=== PATIENT | female | born 1960 | race Caucasian/White ===

== ENCOUNTER 2021-01-14 14:48 | Emergency (ER) | payer OTHER, SELFPAY ==
--- NOTE | ~2021-01-14 | CT_ITS ---
EXAMINATION: CT HEAD WITHOUT CONTRAST CT CERVICAL SPINE WITHOUT CONTRAST CLINICAL INFORMATION: Weakness COMPARISON: None. TECHNIQUE: Imaging was performed from the skull base to vertex without intravenous administration of contrast. In addition, helical noncontrast CT imaging was acquired through the cervical spine and source images were reviewed along with axial reconstructions and sagittal and coronal MPRs. [This CT examination was performed using dose optimization techniques as appropriate, variously including the following: *Automated exposure control *Adjustment of mA and/or kV according to patient size (this includes techniques or standardized protocols for targeted exams where dose is matched to indication/reason for exam; i.e. extremities or head) *Use of iterative reconstruction technique] DLP: 824 mGy-cm FINDINGS: HEAD: No intracranial mass, hemorrhage, or midline shift is visualized. The ventricles and sulci are age-appropriate. No extra-axial collections are identified. Fluid opacifies the inferior right mastoid air cells. There is normal aeration of the middle ear cavities. CERVICAL SPINE: There is no evidence of acute cervical spine fracture. Vertebral bodies remain normal in height. Cervical vertebrae have normal alignment. There is multilevel degenerative spondylosis of the cervical spine with disc height narrowing and endplate spurs and facet joint arthrosis No pre- or paravertebral soft tissue abnormality is identified. Limited assessment of the lung apices is unremarkable. CT/CT head/brain wo con IMPRESSION: 1. No acute intracranial pathology. 2. No CT evidence of acute cervical spine fracture or traumatic subluxation
--- NOTE | ~2021-01-14 | CT_ITS ---
EXAMINATION: CT HEAD WITHOUT CONTRAST CT CERVICAL SPINE WITHOUT CONTRAST CLINICAL INFORMATION: Weakness COMPARISON: None. TECHNIQUE: Imaging was performed from the skull base to vertex without intravenous administration of contrast. In addition, helical noncontrast CT imaging was acquired through the cervical spine and source images were reviewed along with axial reconstructions and sagittal and coronal MPRs. [This CT examination was performed using dose optimization techniques as appropriate, variously including the following: *Automated exposure control *Adjustment of mA and/or kV according to patient size (this includes techniques or standardized protocols for targeted exams where dose is matched to indication/reason for exam; i.e. extremities or head) *Use of iterative reconstruction technique] DLP: 824 mGy-cm FINDINGS: HEAD: No intracranial mass, hemorrhage, or midline shift is visualized. The ventricles and sulci are age-appropriate. No extra-axial collections are identified. Fluid opacifies the inferior right mastoid air cells. There is normal aeration of the middle ear cavities. CERVICAL SPINE: There is no evidence of acute cervical spine fracture. Vertebral bodies remain normal in height. Cervical vertebrae have normal alignment. There is multilevel degenerative spondylosis of the cervical spine with disc height narrowing and endplate spurs and facet joint arthrosis No pre- or paravertebral soft tissue abnormality is identified. Limited assessment of the lung apices is unremarkable. CT/CT cervical spine wo con IMPRESSION: 1. No acute intracranial pathology. 2. No CT evidence of acute cervical spine fracture or traumatic subluxation
--- NOTE | ~2021-01-14 | CT_ITS ---
EXAMINATION: CT CHEST WITHOUT CONTRAST CLINICAL INFORMATION: cough, upper respiratory symptoms . COMPARISON: 02/02/2020 CT scan. TECHNIQUE: Multidetector volumetric imaging was performed from the thoracic inlet through the lung bases without contrast. Sagittal and coronal reformatted images were obtained on the technologist workstation. Soft tissue and lung algorithms evaluated. Thick slab MIP images were performed to increase nodule conspicuity. This CT examination was performed using dose optimization techniques as appropriate, variously including the following: *Automated exposure control *Adjustment of mA and/or kV according to patient size (this includes techniques or standardized protocols for targeted exams where dose is matched to indication/reason for exam; i.e. extremities or head) *Use of iterative reconstruction technique DLP: 276 mGy-cm. FINDINGS: LUNG: Minimal dependent atelectasis. I do not appreciate any focal consolidation or infiltrate. Central airways unremarkable. No suspicious pulmonary nodules or pulmonary mass lesions. MEDIASTINUM: The mediastinum is normal. The central vascular structures are unremarkable. No hilar or mediastinal lymphadenopathy. PERICARDIUM/PLEURA: No significant effusion. No pleural mass or thickening. THYROID/VISUALIZED LOWER NECK: Unremarkable. CHEST WALL/AXILLA: Unremarkable. VISUALIZED UPPER ABDOMEN: Surgical clips metallic artifact seen in the left upper quadrant. CT/CT chest wo con IMPRESSION: No focal airspace disease seen. Minimal dependent basilar atelectasis.
[2021-01-14 14:53] VITALS: BP 152/87; PULSE 105; RESP 18; TEMP 36.7; O2SAT 97; BMI 28.3
[2021-01-14 16:36] VITALS: BP 163/91; PULSE 79; RESP 22; TEMP 36.9; O2SAT 98
--- NOTE | 2021-01-14 17:49 | ECG_ITS ---
Test Reason : NUMBNESS Blood Pressure : / mmHG Vent. Rate : 085 BPM Atrial Rate : 085 BPM P-R Int : 154 ms QRS Dur : 120 ms QT Int : 402 ms P-R-T Axes : 049 -38 097 degrees QTc Int : 478 ms Normal sinus rhythm Left axis deviation Left bundle branch block Abnormal ECG When compared with ECG of 02-FEB-2020 23:18, No significant changes seen Referred By: Rachael Martínez Electronically Signed By:Lei Borden
--- NOTE | 2021-01-14 17:49 | ED_ITS ---
HPI - Weakness General Chief complaint: Weakness Stated complaint: SHOULDER AND BACK PAIN Time Seen by Provider: 01/14/21 21:00 Source: patient Mode of arrival: ambulatory Limitations: no limitations History of Present Illness HPI Narrative: 60-year-old female past medical history of arthritis, hypertension, fibromyalgia, prior history of [facility] presents with headache, back pain, shoulder pain, and anxiety. Patient is crying and sobbing, not answering questions that are asked, tangential and redirectable. She keeps repeating, I do not know what is wrong with myself, woke up with pain that has not been relieved with any [id number] medications. Related Data Previous Rx's Medication Instructions Recorded albuterol sulfate 90 mcg/actuation 2 puff INHALATION Q6H PRN 30 Days 07/24/20 aerosol inhaler #18 g cefuroxime axetil 500 mg PO Q12H 7 Days #14 tab 01/14/21 phenazopyridine [Pyridium] 200 mg PO TID PRN #6 tab 01/14/21 methocarbamol [Robaxin-750] 750 mg PO BEDTIME #7 tab 01/15/21 Allergies Allergy/AdvReac Type Severity Reaction Status Date / Time erythromycin base Allergy Severe ANAPHYLAXIS Verified 07/31/20 12:04 [ERYTHROMYCIN BASE] insulation Allergy Unknown unknown Uncoded 07/31/20 12:04 Review of Systems Review of Systems: Constitutional: No Weight loss, No Fever, No Chills, positive anxiety ENT/Mouth: No Hearing loss, No Ear Pain, No Nasal Congestion, No Sinus Pain, No Hoarseness, No sore throat, No Rhinorrhea, No Swallowing Difficulty Cardiovascular: No Chest Pain, No SOB Respiratory: No Cough, No Dyspnea Gastrointestinal: No Nausea, No Vomiting, No Diarrhea, No abdominal Pain, No Hematochezia, No Melena Genitourinary: No Dysuria, No Urinary Frequency, No Hematuria, No Urinary Incontinence, Musculoskeletal: positive back pain, positive shoulder pain Skin: No Skin Lesions, No rash Neuro: No Weakness, No Numbness, No Paresthesias, no loss of bowel or bladder incontinence, no saddle anesthesia Yes all other systems are reviewed and are negative PMFSH Past Medical History Attestation statement: The following information was validated with the patient. Source: old records reviewed Medical History (Updated 01/14/21 @ 22:12 by Rachael Martínez NP) Arthritis Chest pain Fibromyalgia Heart attack High blood pressure Family History Family History Father Myocardial infarction Mother No problems noted. Sister Diabetes Social History Social History Smoked in Last 30 Days: No Use of substances other than those prescribed or required for medical reasons: No Advance Directives: No Advance Directives Information Provided: Yes Physical Exam Vital Signs: Vital Signs: Last Vital Signs Temp 98.4 F 01/14/21 16:36 Pulse 95 01/14/21 21:53 Resp 16 01/14/21 21:53 BP 121/88 01/14/21 21:53 Pulse Ox 96 01/14/21 21:53 Body Mass Index 28.3 Appearance: Alert. Oriented X3. Moderate emotional distress. Eyes: Pupils equal, round and reactive to light. EOMI, sclera nonicteric ENT: Pharynx normal. Moist mucous membranes Neck: Normal inspection. Neck supple. CVS: Normal heart rate and rhythm. Pulses equal to all extremities. Respiratory: No respiratory distress. Lung sounds clear to auscultation all lobes Abdomen: Soft and nontender. Skin: Skin warm and dry. Normal skin color. Normal skin turgor. Extremities: No lower extremity edema. Moves all extremities against resistance. Neuro: No motor deficit. No sensory deficit. Cranial nerves 2-12 intact, no focal neural deficits Course Course Course Narrative: 6-year-old female with past medical history of arthritis, hypertension, fibromyalgia, history of [facility] presents with back pain, shoulder pain, is in significant emotional distress secondary to anxiety. 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 She states that this is the worst headache of her life, neck pain is so bad that she does not want to move, that her shoulder hurts and she does not recall any trauma or falls. Plan of care is for CBC, Chem 7, will order CT scan of head, chest, and cervical spine. 7:30 p.m. urinalysis positive for UTI. Will treat with ceftriaxone IV, and order lactic and cultures at this time. Patient is continuing to claim 10/10 pain, order for morphine, Toradol and L of fluid. Diagnostics are negative for acute findings, patient is asking for pain medications. Patient was advised that we are not going to prescribe her narcotics. Patient does not want to leave this facility without pain management. Multiple discussions with RN and this FOOD SAFETY COORDINATOR, states that she used to take Robaxin, I did order 7 tablets of Robaxin and let her know that we would not be able to give her any further medications. MDM - Weakness Differential Diagnosis Differential diagnosis: Likely UTI, anemia, hypoglycemia, hypothyroidism, sepsis and dehydration Medical Records Attestation: I reviewed the patient's medical records. Lab Data Attestation: I reviewed the patient's lab results. Result diagrams: 01/14/21 21:21 01/14/21 18:28 Labs: Lab Results 01/14/21 01/14/21 01/14/21 Range/Units 18:27 18:28 18:28 WBC (4.8-10.8) X10*3/uL RBC (4.20-5.50) X10*6/uL Hgb (12.0-16.0) g/dl Hct (37-47) % MCV (80-98) fL MCH (27.0-33.0) pg MCHC (31.0-35.0) g/dl RDW (11.0-16.0) % Plt Count (160-400) X10*3/uL MPV (9.4-12.3) fL Immature Gran % (Auto) (0.0-0.4) % Neut % (Auto) (45-73) % Lymph % (Auto) (20-40) % [place] % (Auto) (2-11) % Eos % (Auto) (0-4) % Baso % (Auto) (0-2) % Lymph # (Auto) (1.2-4.9) X10*3/uL [place] # (Auto) (0.1-1.2) X10*3/uL Eos # (Auto) (0.0-0.4) X10*3/uL Baso # (Auto) (0.0-0.2) X10*3/uL Abs Immat Gran (auto) (0.00-0.03) X10*3/uL Absolute Neuts (auto) (2.0-8.3) X10*3/uL Absolute Nucleated RBC (0.0-0.012) X10*3/uL Nucleated RBC % (auto) (0.0-0.2) /100WBC PT 12.6 (10.8-13.0) SEC INR 1.1 (0.9-1.1) APTT 35.9 (24.1-38.0) SEC Sodium 138 (135-145) mmol/L Potassium 3.8 (3.3-5.1) mmol/L Chloride 104 (96-108) mmol/L Carbon Dioxide 22 (22-29) mmol/L Anion Gap 16 (12-20) BUN 10 (9-16) mg/dL Creatinine 0.61 (0.5-1.4) mg/dL Estim Creat Clear Calc 86.5 Estimated GFR > 60 Random Glucose 91 (60-115) mg/dL Lactic Acid (0.5-2.0) mmol/L Calcium 10.1 (8.4-10.2) mg/dL Magnesium 2.0 (1.6-2.6) mg/dL Ferritin 174 (10-250) ng/mL Total Bilirubin 0.9 (0.0-1.0) mg/dL Direct Bilirubin 0.4 (0.0-0.5) mg/dL AST 16 (5-31) U/L ALT 18 (0-31) U/L Alkaline Phosphatase 97 (39-117) U/L Ammonia (13-55) umol/L Lactate Dehydrogenase 142 (122-220) U/L Troponin I High Sens (<3.5-17.0) ng/L B-Natriuretic Peptide (<100) pg/mL Total Protein 7.5 (6.5-8.0) g/dL Albumin 4.1 (3.5-5.0) g/dL Lipase 34 (8-78) U/L Urine Color Urine Appearance Urine pH (5.0-8.0) Ur Specific [place] (1.005-1.025) Urine Protein (NEG-TRACE) MG/DL Urine Glucose (UA) (NEG) MG/DL Urine Ketones (NEG) MG/DL Urine Blood (NEG) Urine Nitrite (NEG) Ur Leukocyte Esterase (NEG) Urine RBC (0) /HPF Urine WBC (0-4) /HPF Ur Squamous Epith Cells /LPF Urine Bacteria /LPF Urine Opiates Screen (Not Detect) Ur Barbiturates Screen (Not Detect) Ur Phencyclidine Scrn (Not Detect) Ur Amphetamines Screen (Not Detect) U Benzodiazepines Scrn (Not Detect) Urine Cocaine Screen (Not Detect) U Marijuana (THC) Screen (Not Detect) Ethyl Alcohol mg/dL Coronavirus (PCR) (Negative) Influenza Type A (PCR) (Negative) Influenza Type B (PCR) (Negative) RSV RNA Qual (PCR) (Negative) 01/14/21 01/14/21 01/14/21 Range/Units 18:28 18:28 18:28 WBC (4.8-10.8) X10*3/uL RBC (4.20-5.50) X10*6/uL Hgb (12.0-16.0) g/dl Hct (37-47) % MCV (80-98) fL MCH (27.0-33.0) pg MCHC (31.0-35.0) g/dl RDW (11.0-16.0) % Plt Count (160-400) X10*3/uL MPV (9.4-12.3) fL Immature Gran % (Auto) (0.0-0.4) % Neut % (Auto) (45-73) % Lymph % (Auto) (20-40) % [place] % (Auto) (2-11) % Eos % (Auto) (0-4) % Baso % (Auto) (0-2) % Lymph # (Auto) (1.2-4.9) X10*3/uL [place] # (Auto) (0.1-1.2) X10*3/uL Eos # (Auto) (0.0-0.4) X10*3/uL Baso # (Auto) (0.0-0.2) X10*3/uL Abs Immat Gran (auto) (0.00-0.03) X10*3/uL Absolute Neuts (auto) (2.0-8.3) X10*3/uL Absolute Nucleated RBC (0.0-0.012) X10*3/uL Nucleated RBC % (auto) (0.0-0.2) /100WBC PT (10.8-13.0) SEC INR (0.9-1.1) APTT (24.1-38.0) SEC Sodium (135-145) mmol/L Potassium (3.3-5.1) mmol/L Chloride (96-108) mmol/L Carbon Dioxide (22-29) mmol/L Anion Gap (12-20) BUN (9-16) mg/dL Creatinine (0.5-1.4) mg/dL Estim Creat Clear Calc Estimated GFR Random Glucose (60-115) mg/dL Lactic Acid (0.5-2.0) mmol/L Calcium (8.4-10.2) mg/dL Magnesium (1.6-2.6) mg/dL Ferritin (10-250) ng/mL Total Bilirubin (0.0-1.0) mg/dL Direct Bilirubin (0.0-0.5) mg/dL AST (5-31) U/L ALT (0-31) U/L Alkaline Phosphatase (39-117) U/L Ammonia (13-55) umol/L Lactate Dehydrogenase (122-220) U/L Troponin I High Sens 4.6 (<3.5-17.0) ng/L B-Natriuretic Peptide 27 (<100) pg/mL Total Protein (6.5-8.0) g/dL Albumin (3.5-5.0) g/dL Lipase (8-78) U/L Urine Color Urine Appearance Urine pH (5.0-8.0) Ur Specific [place] (1.005-1.025) Urine Protein (NEG-TRACE) MG/DL Urine Glucose (UA) (NEG) MG/DL Urine Ketones (NEG) MG/DL Urine Blood (NEG) Urine Nitrite (NEG) Ur Leukocyte Esterase (NEG) Urine RBC (0) /HPF Urine WBC (0-4) /HPF Ur Squamous Epith Cells /LPF Urine Bacteria /LPF Urine Opiates Screen (Not Detect) Ur Barbiturates Screen (Not Detect) Ur Phencyclidine Scrn (Not Detect) Ur Amphetamines Screen (Not Detect) U Benzodiazepines Scrn (Not Detect) Urine Cocaine Screen (Not Detect) U Marijuana (THC) Screen (Not Detect) Ethyl Alcohol < 10 mg/dL Coronavirus (PCR) (Negative) Influenza Type A (PCR) (Negative) Influenza Type B (PCR) (Negative) RSV RNA Qual (PCR) (Negative) 01/14/21 01/14/21 01/14/21 Range/Units 18:28 18:28 18:29 WBC (4.8-10.8) X10*3/uL RBC (4.20-5.50) X10*6/uL Hgb (12.0-16.0) g/dl Hct (37-47) % MCV (80-98) fL MCH (27.0-33.0) pg MCHC (31.0-35.0) g/dl RDW (11.0-16.0) % Plt Count (160-400) X10*3/uL MPV (9.4-12.3) fL Immature Gran % (Auto) (0.0-0.4) % Neut % (Auto) (45-73) % Lymph % (Auto) (20-40) % [place] % (Auto) (2-11) % Eos % (Auto) (0-4) % Baso % (Auto) (0-2) % Lymph # (Auto) (1.2-4.9) X10*3/uL [place] # (Auto) (0.1-1.2) X10*3/uL Eos # (Auto) (0.0-0.4) X10*3/uL Baso # (Auto) (0.0-0.2) X10*3/uL Abs Immat Gran (auto) (0.00-0.03) X10*3/uL Absolute Neuts (auto) (2.0-8.3) X10*3/uL Absolute Nucleated RBC (0.0-0.012) X10*3/uL Nucleated RBC % (auto) (0.0-0.2) /100WBC PT (10.8-13.0) SEC INR (0.9-1.1) APTT (24.1-38.0) SEC Sodium (135-145) mmol/L Potassium (3.3-5.1) mmol/L Chloride (96-108) mmol/L Carbon Dioxide (22-29) mmol/L Anion Gap (12-20) BUN (9-16) mg/dL Creatinine (0.5-1.4) mg/dL Estim Creat Clear Calc Estimated GFR Random Glucose (60-115) mg/dL Lactic Acid (0.5-2.0) mmol/L Calcium (8.4-10.2) mg/dL Magnesium (1.6-2.6) mg/dL Ferritin (10-250) ng/mL Total Bilirubin (0.0-1.0) mg/dL Direct Bilirubin (0.0-0.5) mg/dL AST (5-31) U/L ALT (0-31) U/L Alkaline Phosphatase (39-117) U/L Ammonia (13-55) umol/L Lactate Dehydrogenase (122-220) U/L Troponin I High Sens (<3.5-17.0) ng/L B-Natriuretic Peptide (<100) pg/mL Total Protein (6.5-8.0) g/dL Albumin (3.5-5.0) g/dL Lipase (8-78) U/L Urine Color YELLOW Urine Appearance HAZY Urine pH 6.0 (5.0-8.0) Ur Specific [place] 1.025 (1.005-1.025) Urine Protein NEG (NEG-TRACE) MG/DL Urine Glucose (UA) NEG (NEG) MG/DL Urine Ketones 5 (NEG) MG/DL Urine Blood TRACE (NEG) Urine Nitrite POS H (NEG) Ur Leukocyte Esterase 3+ H (NEG) Urine RBC 0-2 (0) /HPF Urine WBC 30-49 H (0-4) /HPF Ur Squamous Epith Cells 2+ /LPF Urine Bacteria 4+ /LPF Urine Opiates Screen Not Detected (Not Detect) Ur Barbiturates Screen Not Detected (Not Detect) Ur Phencyclidine Scrn Not Detected (Not Detect) Ur Amphetamines Screen Not Detected (Not Detect) U Benzodiazepines Scrn Not Detected (Not Detect) Urine Cocaine Screen Not Detected (Not Detect) U Marijuana (THC) Screen POSITIVE H (Not Detect) Ethyl Alcohol mg/dL Coronavirus (PCR) NEGATIVE (Negative) Influenza Type A (PCR) NEGATIVE (Negative) Influenza Type B (PCR) NEGATIVE (Negative) RSV RNA Qual (PCR) NEGATIVE (Negative) 01/14/21 01/14/21 01/14/21 Range/Units 18:36 21:21 21:21 WBC 10.5 (4.8-10.8) X10*3/uL RBC 4.21 (4.20-5.50) X10*6/uL Hgb 13.5 (12.0-16.0) g/dl Hct 39.4 (37-47) % MCV 93.6 (80-98) fL MCH 32.1 (27.0-33.0) pg MCHC 34.3 (31.0-35.0) g/dl RDW 13.9 (11.0-16.0) % Plt Count 274 (160-400) X10*3/uL MPV 9.0 L (9.4-12.3) fL Immature Gran % (Auto) 0.3 (0.0-0.4) % Neut % (Auto) 57.2 (45-73) % Lymph % (Auto) 27.4 (20-40) % [place] % (Auto) 13.9 H (2-11) % Eos % (Auto) 0.7 (0-4) % Baso % (Auto) 0.5 (0-2) % Lymph # (Auto) 2.9 (1.2-4.9) X10*3/uL [place] # (Auto) 1.5 H (0.1-1.2) X10*3/uL Eos # (Auto) 0.1 (0.0-0.4) X10*3/uL Baso # (Auto) 0.1 (0.0-0.2) X10*3/uL Abs Immat Gran (auto) 0.03 (0.00-0.03) X10*3/uL Absolute Neuts (auto) 6.0 (2.0-8.3) X10*3/uL Absolute Nucleated RBC 0.000 (0.0-0.012) X10*3/uL Nucleated RBC % (auto) 0.0 (0.0-0.2) /100WBC PT (10.8-13.0) SEC INR (0.9-1.1) APTT (24.1-38.0) SEC Sodium (135-145) mmol/L Potassium (3.3-5.1) mmol/L Chloride (96-108) mmol/L Carbon Dioxide (22-29) mmol/L Anion Gap (12-20) BUN (9-16) mg/dL Creatinine (0.5-1.4) mg/dL Estim Creat Clear Calc Estimated GFR Random Glucose (60-115) mg/dL Lactic Acid 0.6 (0.5-2.0) mmol/L Calcium (8.4-10.2) mg/dL Magnesium (1.6-2.6) mg/dL Ferritin (10-250) ng/mL Total Bilirubin (0.0-1.0) mg/dL Direct Bilirubin (0.0-0.5) mg/dL AST (5-31) U/L ALT (0-31) U/L Alkaline Phosphatase (39-117) U/L Ammonia 42 (13-55) umol/L Lactate Dehydrogenase (122-220) U/L Troponin I High Sens (<3.5-17.0) ng/L B-Natriuretic Peptide (<100) pg/mL Total Protein (6.5-8.0) g/dL Albumin (3.5-5.0) g/dL Lipase (8-78) U/L Urine Color Urine Appearance Urine pH (5.0-8.0) Ur Specific [place] (1.005-1.025) Urine Protein (NEG-TRACE) MG/DL Urine Glucose (UA) (NEG) MG/DL Urine Ketones (NEG) MG/DL Urine Blood (NEG) Urine Nitrite (NEG) Ur Leukocyte Esterase (NEG) Urine RBC (0) /HPF Urine WBC (0-4) /HPF Ur Squamous Epith Cells /LPF Urine Bacteria /LPF Urine Opiates Screen (Not Detect) Ur Barbiturates Screen (Not Detect) Ur Phencyclidine Scrn (Not Detect) Ur Amphetamines Screen (Not Detect) U Benzodiazepines Scrn (Not Detect) Urine Cocaine Screen (Not Detect) U Marijuana (THC) Screen (Not Detect) Ethyl Alcohol mg/dL Coronavirus (PCR) (Negative) Influenza Type A (PCR) (Negative) Influenza Type B (PCR) (Negative) RSV RNA Qual (PCR) (Negative) 01/14/21 Range/Units 21:21 WBC (4.8-10.8) X10*3/uL RBC (4.20-5.50) X10*6/uL Hgb (12.0-16.0) g/dl Hct (37-47) % MCV (80-98) fL MCH (27.0-33.0) pg MCHC (31.0-35.0) g/dl RDW (11.0-16.0) % Plt Count (160-400) X10*3/uL MPV (9.4-12.3) fL Immature Gran % (Auto) (0.0-0.4) % Neut % (Auto) (45-73) % Lymph % (Auto) (20-40) % [place] % (Auto) (2-11) % Eos % (Auto) (0-4) % Baso % (Auto) (0-2) % Lymph # (Auto) (1.2-4.9) X10*3/uL [place] # (Auto) (0.1-1.2) X10*3/uL Eos # (Auto) (0.0-0.4) X10*3/uL Baso # (Auto) (0.0-0.2) X10*3/uL Abs Immat Gran (auto) (0.00-0.03) X10*3/uL Absolute Neuts (auto) (2.0-8.3) X10*3/uL Absolute Nucleated RBC (0.0-0.012) X10*3/uL Nucleated RBC % (auto) (0.0-0.2) /100WBC PT (10.8-13.0) SEC INR (0.9-1.1) APTT (24.1-38.0) SEC Sodium (135-145) mmol/L Potassium (3.3-5.1) mmol/L Chloride (96-108) mmol/L Carbon Dioxide (22-29) mmol/L Anion Gap (12-20) BUN (9-16) mg/dL Creatinine (0.5-1.4) mg/dL Estim Creat Clear Calc Estimated GFR Random Glucose (60-115) mg/dL Lactic Acid (0.5-2.0) mmol/L Calcium (8.4-10.2) mg/dL Magnesium (1.6-2.6) mg/dL Ferritin (10-250) ng/mL Total Bilirubin (0.0-1.0) mg/dL Direct Bilirubin (0.0-0.5) mg/dL AST (5-31) U/L ALT (0-31) U/L Alkaline Phosphatase (39-117) U/L Ammonia (13-55) umol/L Lactate Dehydrogenase (122-220) U/L Troponin I High Sens 4.9 (<3.5-17.0) ng/L B-Natriuretic Peptide (<100) pg/mL Total Protein (6.5-8.0) g/dL Albumin (3.5-5.0) g/dL Lipase (8-78) U/L Urine Color Urine Appearance Urine pH (5.0-8.0) Ur Specific [place] (1.005-1.025) Urine Protein (NEG-TRACE) MG/DL Urine Glucose (UA) (NEG) MG/DL Urine Ketones (NEG) MG/DL Urine Blood (NEG) Urine Nitrite (NEG) Ur Leukocyte Esterase (NEG) Urine RBC (0) /HPF Urine WBC (0-4) /HPF Ur Squamous Epith Cells /LPF Urine Bacteria /LPF Urine Opiates Screen (Not Detect) Ur Barbiturates Screen (Not Detect) Ur Phencyclidine Scrn (Not Detect) Ur Amphetamines Screen (Not Detect) U Benzodiazepines Scrn (Not Detect) Urine Cocaine Screen (Not Detect) U Marijuana (THC) Screen (Not Detect) Ethyl Alcohol mg/dL Coronavirus (PCR) (Negative) Influenza Type A (PCR) (Negative) Influenza Type B (PCR) (Negative) RSV RNA Qual (PCR) (Negative) Imaging Data Head, cervical spine, and chest CT: Attestation: I personally reviewed and interpreted this imaging study as follows: Radiologist's impression: You were evaluated for abscess to the left groin, these are recurrent so it could possibly be hidradenitis suppurativa. Please follow-up in 3 days for wound check. We did incise and drain this wound. Please take doxycycline as directed. We also drainage of paronychia, infection on the finger tip along the nail line. Thank you for choosing this emergency department for evaluation. Please follow-up with primary care physician as needed. Return to the emergency department for any new, concerning, or worsening symptoms. FINDINGS: LUNG: Minimal dependent atelectasis. I do not appreciate any focal consolidation or infiltrate. Central airways unremarkable. No suspicious pulmonary nodules or pulmonary mass lesions. MEDIASTINUM: The mediastinum is normal. The central vascular structures are unremarkable. No hilar or mediastinal lymphadenopathy. PERICARDIUM/PLEURA: No significant effusion. No pleural mass or thickening. THYROID/VISUALIZED LOWER NECK: Unremarkable. CHEST WALL/AXILLA: Unremarkable. VISUALIZED UPPER ABDOMEN: Surgical clips metallic artifact seen in the left upper quadrant. CT/CT chest wo con IMPRESSION: No focal airspace disease seen. Minimal dependent basilar atelectasis. Discharge Plan Discharge Clinical Impression: UTI (urinary tract infection) Qualifiers: Urinary tract infection type: acute cystitis Hematuria presence: with hematuria Qualified Code(s): N30.01 - Acute cystitis with hematuria Patient Disposition: Home, Self-Care Instructions: Urinary Tract Infection in Women (ED) Additional Instructions: You were evaluated for multiple symptoms. CBC and Chem 7 are within normal limits, your head and chest CT scan are negative for acute findings, however urinalysis is positive for urinary tract infection. We did give you 1 dose of IV antibiotics, please continue to take p.o. antibiotics for this infection. Please follow-up with primary care provider needed. Thank you for choosing this emergency department for evaluation. Please follow-up with primary care physician as needed. Return to the emergency department for any new, concerning, or worsening symptoms. Prescriptions: New cefuroxime axetil 500 mg tablet 500 mg PO Q12H 7 Days Qty: 14 RF: 0 phenazopyridine [Pyridium] 200 mg tablet 200 mg PO TID PRN (Reason: pain) Qty: 6 RF: 0 methocarbamol [Robaxin-750] 750 mg tablet 750 mg PO BEDTIME Qty: 7 RF: 0 No Action albuterol sulfate 90 mcg/actuation HFA aerosol inhaler 2 puff inhalation Q6H PRN (Reason: shortness of breath or wheezing) 30 Days Qty: 18 RF: 3
[2021-01-14 18:46] LABS: INTERNATIONAL NORM RATIO 1.1 (0.9-1.1); Prothrombin Time 12.6 SEC (10.8-13.0)
[2021-01-14] MEDS: LORazepam 2 MG/ML VIAL 0.5 MG IVPUSH (18:46)
[2021-01-14] MEDS: ondansetron HCL 4 MG/2 ML VIAL IVPUSH (18:46)
[2021-01-14 18:49] LABS: Glucose Urine UA NEG (NEG); Leukocyte Esterase Urine 3+ (NEG); Nitrite Urine POS (NEG); Partial Thromboplastin Time 35.9 SEC (24.1-38.0); Specific Gravity - Urine 1.025 (1.005-1.025); UACC Culture Trigger YES; Urine Blood TRACE (NEG); Urine Ketones 5 MG/DL (NEG); Urine Protein NEG (NEG-TRACE)
[2021-01-14 18:50] LABS: Appearance Urine HAZY; Color Urine YELLOW
[2021-01-14 18:55] LABS: Ammonia 42 umol/L (13-55)
[2021-01-14 18:59] LABS: Bacteria Urine 4+ /LPF; RBC Urine 0-2 /HPF (0); Squamous Epithelial Cell Urine 2+ /LPF; WBC Urine 30-49 /HPF (0-4)
[2021-01-14 19:04] LABS: Ethanol < 10 mg/dL
[2021-01-14 19:05] LABS: Alanine Aminotransferase 18 U/L (0-31); Albumin Level 4.1 g/dL (3.5-5.0); Alkaline Phosphatase 97 U/L (39-117); Anion Gap 16 (12-20); Aspartate Amino Transferase 16 U/L (5-31); Bilirubin Direct 0.4 mg/dL (0.0-0.5); Bilirubin Total 0.9 mg/dL (0.0-1.0); Blood Urea Nitrogen 10 mg/dL (9-16); Calcium 10.1 mg/dL (8.4-10.2); Carbon Dioxide 22 mmol/L (22-29); Chloride 104 mmol/L (96-108); Creatinine Clr Calc Pharmacy 86.5; Estimated Glomerular Filt Rate > 60; Glucose Random 91 mg/dL (60-115); Lactate Dehydrogenase 142 U/L (122-220); Lipase 34 U/L (8-78); Potassium 3.8 mmol/L (3.3-5.1); Sodium 138 mmol/L (135-145); Total Protein 7.5 g/dL (6.5-8.0)
[2021-01-14 19:08] LABS: Troponin-I High Sensitivity 4.6 ng/L (<3.5-17.0)
[2021-01-14 19:13] LABS: B Type Natriuretic Peptide 27 pg/mL (<100)
[2021-01-14 19:15] LABS: Influenza A PCR NEGATIVE (Negative); Influenza B PCR NEGATIVE (Negative); Resp Syncy Virus RNA Qual PCR NEGATIVE (Negative); SARS COV2 PCR INHOUSE NEGATIVE (Negative)
[2021-01-14 19:21] LABS: Amphetamine Screen Urine Not Detected (Not Detect); Barbiturates, Urine Not Detected (Not Detect); Benzodiazepines Screen Urine Not Detected (Not Detect); Cannabinoid Screen Urine POSITIVE (Not Detect); Cocaine Screen Urine Not Detected (Not Detect); Opiate Screen Urine Not Detected (Not Detect); Phencyclidine Screen Urine Not Detected (Not Detect)
[2021-01-14 19:23] LABS: Ferritin 174 ng/mL (10-250)
[2021-01-14] MEDS: Morphine Sulfate 4 MG/ML CARTRIDGE IVPUSH (20:35)
[2021-01-14] MEDS: 0.9 % Sodium Chloride 1,000 ML 999 ML IVCONT (20:35)
[2021-01-14] MEDS: Ketorolac Tromethamine 30 MG/ML VIAL IVPUSH (20:35)
[2021-01-14 21:35] LABS: MANUAL DIFF FLAG NO
[2021-01-14 21:38] LABS: Basophils Absolute Auto 0.1 X10*3/uL (0.0-0.2); Basophils Percent Auto 0.5 % (0-2); Eosinophils Absolute Auto 0.1 X10*3/uL (0.0-0.4); Eosinophils Percent Auto 0.7 % (0-4); Hematocrit 39.4 % (37-47); Hemoglobin 13.5 g/dl (12.0-16.0); Imm Gran Abs Auto 0.03 X10*3/uL (0.00-0.03); Imm Gran Pct Auto 0.3 % (0.0-0.4); Lymphocytes Absolute Auto 2.9 X10*3/uL (1.2-4.9); Lymphocytes Percent Auto 27.4 % (20-40); Mean Corpuscular HGB Conc 34.3 g/dl (31.0-35.0); Mean Corpuscular Hemoglobin 32.1 pg (27.0-33.0); Mean Corpuscular Volume 93.6 fL (80-98); Monocytes Absolute Auto 1.5 X10*3/uL (0.1-1.2); Monocytes Percent Auto 13.9 % (2-11); Neutrophils Percent Auto 57.2 % (45-73); Platelet Count 274 X10*3/uL (160-400); Red Blood Count 4.21 X10*6/uL (4.20-5.50); Red Cell Distribution Width 13.9 % (11.0-16.0); White Blood Count 10.5 X10*3/uL (4.8-10.8)
[2021-01-14] MEDS: cefTRIAXone sodium 1 GM in 0.9 % Sodium Chloride 50 ML IV (21:51)
[2021-01-14 21:53] VITALS: BP 121/88; PULSE 95; RESP 16; O2SAT 96
[2021-01-14 21:57] LABS: Lactic Acid 0.6 mmol/L (0.5-2.0)
[2021-01-14 22:05] LABS: Troponin-I High Sensitivity 4.9 ng/L (<3.5-17.0)
== END 2021-01-15 00:45 | disposition home or self-care (01) ==
PROVIDERS: Nurse Practitioner Family; Emergency Provider Emergency Medicine Emergency Medical Services; PCP Physician Assistant
DX: N30.01 Acute cystitis with hematuria (principal); M25.519 Pain in unspecified shoulder; M54.5 Low back pain; F41.1 Generalized anxiety disorder; F43.0 Acute stress reaction; I10 Essential (primary) hypertension; Z79.899 Other long term (current) drug therapy; Z20.822 Contact with and (suspected) exposure to COVID-19
CPT/HCPCS: 0241U; 36415; 70450; 71250; 72125; 80048; 80076; 80307; 80320; 81001; 81003; 82140; 82728; 83605; 83615; 83690; 83735; 83880; 84484; 85025; 85610; 85730; 87040; 87086; 87088; 87186; 93005; 96361; 96365; 96375; 99284; J0696; J1885; J2060; J2270; J2405

== ENCOUNTER 2022-02-03 14:06 | Outpatient (REF) | payer OTHER, SELFPAY ==
--- NOTE | ~2022-02-03 | XR_ITS ---
EXAMINATION: XR FOOT, LEFT CLINICAL INFORMATION: Superficial foreign body. COMPARISON: 09/30/2016 TECHNIQUE: AP, lateral, and oblique views of the left foot. FINDINGS: There is no evidence of acute fracture or dislocation of the left foot. There is severe degenerative change of the 1st metatarsophalangeal joint with loss of joint space and marginal spurring and some articular irregularity. There is subchondral cyst formation present as well. Appearance is similar to prior examination of 09/30/2016. A plantar calcaneal spur is present. Hardware from previous ankle fracture repair is noted. No radiopaque foreign body is identified about the plantar aspect of the foot. XR/XR foot LT 2V IMPRESSION: No radiopaque foreign body about the plantar soft tissues of the left foot. Significant degenerative change of the 1st metatarsophalangeal joint.
--- NOTE | 2022-02-03 14:22 | ECG_ITS ---
Test Reason : Z01.818 Blood Pressure : / mmHG Vent. Rate : 078 BPM Atrial Rate : 078 BPM P-R Int : 142 ms QRS Dur : 132 ms QT Int : 436 ms P-R-T Axes : 058 -39 085 degrees QTc Int : 497 ms Normal sinus rhythm Left axis deviation Left bundle branch block Abnormal ECG When compared with ECG of 14-JAN-2021 18:27, No significant changes seen Referred By: Corbin Gross Electronically Signed By:CAMILLA ALSTON MD
[2022-02-03 14:44] LABS: Hemoglobin 14.5 g/dl (12.0-16.0); Mean Corpuscular HGB Conc 33.7 g/dl (31.0-35.0); Mean Corpuscular Hemoglobin 31.9 pg (27.0-33.0); Mean Corpuscular Volume 94.5 fL (80.0-98.0); Mean Platelet Volume 9.3 fL (9.4-12.3); Platelet Count 308 X10*3/uL (160-400); Red Blood Count 4.55 X10*6/uL (4.20-5.50); White Blood Count 7.3 X10*3/uL (4.8-10.8)
[2022-02-03 14:53] LABS: Estimated Average Glucose 94 mg/dL; Hemoglobin A1c % 4.9 %
[2022-02-03 15:03] LABS: Alanine Aminotransferase 23 U/L (0-31); Albumin Level 4.4 g/dL (3.5-5.0); Alkaline Phosphatase 93 U/L (39-117); Anion Gap 13 (12-20); Aspartate Amino Transferase 22 U/L (5-31); Bilirubin Direct 0.3 mg/dL (0.0-0.5); Bilirubin Total 0.8 mg/dL (0.0-1.0); Blood Urea Nitrogen 8 mg/dL (9-16); Calcium 10.9 mg/dL (8.4-10.2); Carbon Dioxide 25 mmol/L (22-29); Chloride 105 mmol/L (96-108); Estimated Glomerular Filt Rate > 60; Glucose Random 87 mg/dL (60-115); Potassium 3.8 mmol/L (3.3-5.1); Sodium 139 mmol/L (135-145); Total Protein 7.8 g/dL (6.5-8.0)
[2022-02-03 15:22] LABS: TSH reflex Free T4 1.38 uIU/mL (0.32-4.0)
[2022-02-03 15:44] LABS: Creatinine Urine 215.13 mg/dL
== END 2022-02-03 14:07 | disposition home or self-care (01) ==
LOC: HO.LAB 14:06
PROVIDERS: PCP Physician Assistant; Visit Provider Physician Assistant
DX: Z01.818 Encounter for other preprocedural examination (principal); S90.852A Superficial foreign body, left foot, initial encounter; I10 Essential (primary) hypertension
CPT/HCPCS: 36415; 73620; 80048; 80076; 82043; 83036; 84443; 85027; 85610; 93005

== ENCOUNTER → 2022-09-22 10:19 | Outpatient (BNVA) | payer OTHER, SELFPAY | PROVIDERS: PCP Physician Assistant; Visit Provider Psychiatry & Neurology Neurology | DX: F09 Unspecified mental disorder due to known physiological condition (principal); R51.9 Headache, unspecified; G89.29 Other chronic pain | CPT/HCPCS: 99202 ==

== ENCOUNTER 2022-11-26 13:58 | Outpatient (REF) | payer OTHER, SELFPAY ==
--- NOTE | 2022-11-26 14:02 | ECG_ITS ---
Test Reason : pre-op Blood Pressure : / mmHG Vent. Rate : 074 BPM Atrial Rate : 074 BPM P-R Int : 160 ms QRS Dur : 122 ms QT Int : 444 ms P-R-T Axes : 031 -43 270 degrees QTc Int : 492 ms Sinus rhythm with Premature atrial complexes Left axis deviation Left bundle branch block Abnormal ECG When compared with ECG of 03-FEB-2022 14:25, Premature atrial complexes are now Present Nonspecific T wave abnormality now evident in Inferior leads Referred By: Silke No Electronically Signed By:CAMILLA ALSTON MD
[2022-11-26 14:37] LABS: Hematocrit 39.5 % (37.0-47.0); Hemoglobin 13.6 g/dl (12.0-16.0); Mean Corpuscular HGB Conc 34.4 g/dl (31.0-35.0); Mean Corpuscular Hemoglobin 32.5 pg (27.0-33.0); Mean Corpuscular Volume 94.3 fL (80.0-98.0); Mean Platelet Volume 9.4 fL (9.4-12.3); Platelet Count 327 X10*3/uL (160-400); Red Blood Count 4.19 X10*6/uL (4.20-5.50); Red Cell Distribution Width 14.8 % (11.0-16.0); White Blood Count 7.1 X10*3/uL (4.8-10.8)
[2022-11-26 14:50] LABS: INTERNATIONAL NORM RATIO 0.9 (0.9-1.1); Prothrombin Time 10.4 SEC (10.0-13.1)
[2022-11-26 15:13] LABS: Anion Gap 14 (12-20); Blood Urea Nitrogen 20 mg/dL (9-16); Calcium 10.4 mg/dL (8.4-10.2); Carbon Dioxide 26 mmol/L (22-29); Chloride 105 mmol/L (96-108); Estimated Glomerular Filt Rate > 60; Glucose Random 111 mg/dL (60-115); Potassium 4.6 mmol/L (3.3-5.1); Sodium 140 mmol/L (135-145)
[2022-11-26 15:25] LABS: TSH reflex Free T4 2.07 uIU/mL (0.32-4.0)
== END 2022-11-26 13:59 | disposition home or self-care (01) ==
LOC: HO.LAB 13:58
PROVIDERS: PCP Physician Assistant; Visit Provider Nurse Practitioner Family
DX: Z01.818 Encounter for other preprocedural examination (principal)
CPT/HCPCS: 36415; 80048; 84443; 85027; 85610; 93005

== ENCOUNTER 2023-05-03 15:11 | Outpatient (AMB) | payer OTHER, SELFPAY ==
--- NOTE | 2023-05-03 15:14 | A.OFFPC_ITS ---
Vital Signs 05/03/23 15:15 Height 5 ft 1 in Weight 152 lb 6 oz BMI 28.8 BP 118/72 Blood Pressure Location Lt brachial Position Sitting Pulse 85 Pulse Source Pulse Oximeter Pulse Oximetry (%) 96 Oxygen Delivery Method Room Air Intake Visit Reasons: PE Disposal Man Required: No Accompanied by: Self / Same As Patient Allergies erythromycin base [ERYTHROMYCIN BASE] Allergy (Severe, Verified 05/03/23 15:29) ANAPHYLAXIS insulation Allergy (Unknown, Uncoded 03/16/23 11:36) unknown Medication List - Last Reconciled 05/03/23 by Corbin Gross PA-C acetaminophen 500 mg PO Q6H PRN 30 days albuterol sulfate 90 mcg/actuation (ProAir HFA) 2 puffs inhalation Q6H PRN 30 days amitriptyline 10 mg PO BEDTIME epinephrine (EpiPen 2-Eric) 0.3 mg (0.3 mL) IM Q4H PRN 30 days gabapentin 300 mg PO TID 30 days lisinopril 10 mg PO DAILY lorazepam 0.5 mg PO DAILY 7 days methocarbamol 500 mg PO BEDTIME 15 days miscellaneous medical supply 1 ea miscellaneous DAILY 99 days miscellaneous medical supply 1 ea miscellaneous DAILY 99 days miscellaneous medical supply 1 ea miscellaneous DAILY 99 days miscellaneous medical supply 1 ea miscellaneous DAILY 99 days nitroglycerin 0.4 mg sublingual Q5M PRN 7 days omeprazole 20 mg PO DAILY 30 days triamcinolone acetonide 0.1% 1 appl topical DAILY 30 days Tobacco use date assessed: 05/03/23 Dental Screening Dental Screen Date: 05/03/23 Did you have a dental visit in the last 12 months?: No Did you have a dental problem in the last 6 months where you did not have access to dental care?: No Was dental information given to patient?: Patient has dentist HPI PE HPI Details Patient is a 63 year female here today for routine annual physical.? Patient has a past medical history significant for hypertension, GERD, generalized anxiety disorder, osteoarthritis of the knees. Patient is status post Right foot 1st MPJ fusion, metatarsal head resection-->? has establish care with new orthopedics at [facility]. She reports she will be due reconstructive surgery in the fall of 2022. Continues to ambulate with nc lker assist and has a surgical boot on. She has been able to control her foot pain with gabapentin, amitriptyline, methocarbamol and use of marijuana. .. Generalized anxiety disorder: Continues with p.r.n. use lorazepam for high point of anxiety. She does continue to use marijuana which has helped her with her pain and mental health issues. .. .. Hypertension:? Blood pressure today in office acceptable, will continue her current dose lisinopril. ? .. Asthma: Has been fairly well controlled with only p.r.n. use of albuterol inhaler. She denies any recent acute episodes asthma exacerbations or nighttime awakenings with asthma symptoms. Mammogram: Needs up-to-date mammogram- Has gotten card in the mail (usually goes to [facility]). 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 Requesting referral to [facility] operations research manager Colon cancer screening: Willing to do Cologuard ON LICENSE OF [facility] Medical History (Updated 05/04/23 @ 07:48 by Corbin Gross PA-C) Arthritis Chest pain Fibromyalgia Hammer toe of right foot Heart attack High blood pressure Osteoarthritis of left knee Osteoarthritis of right knee RBBB (right bundle branch block with left anterior fascicular block) Surgical History H/O rhinoplasty H/O right knee surgery H/O toe surgery History of ankle surgery History of colon surgery History of eye surgery Family History Father Myocardial infarction Mother Diabetes Myocardial infarction Mental health disorder Substance use disorder Sister Diabetes Social History Housing: House Alcohol intake: current Alcohol intake frequency: holidays/special occasions only Patient Tobacco Use Status: Former Tobacco user Tobacco use type: Smokeless Tobacco Cigarettes Per Day: 3 e-Cigarette/Vaping Use: Currently Using Second Hand Smoke Exposure: No Substance Use Type: Marijuana service: No Current occupational status: disabled Cognitive needs: Yes Hearing needs: No Vision needs: No Questionnaire PHQ-9 Over the last 2 weeks, how often have you been bothered by any of the following problems? 1. Little interest or pleasure in doing things: not at all 2. Feeling down, depressed, or hopeless: not at all 3. Trouble falling or staying asleep, or sleeping too much: not at all 4. Feeling tired or having little energy: not at all 5. Poor appetite or overeating: not at all 6. Feeling bad about yourself - or that you are a failure or have let yourself or your family down: not at all 7. Trouble concentrating on things, such as reading the newspaper or watching television: not at all 8. Moving or speaking so slowly that other people could have noticed. Or the opposite - being so fidgety or restless that you have been moving around a lot more than usual: not at all 9. Thoughts that you would be better off or of hurting yourself in some way: not at all Total score: 0 Depression Screening Interpretation: Negative 31110 - PHQ-9 Billing: Yes Source: Developed by Drs. Kit Alarcon, Sarita Bowling, Dwight Mims and colleagues, with an educational brigid from [employer]. Thrive Questionnaire Date Thrive assessed: 05/03/23 I am a: Patient What is your living situation today?: I have a steady place to live Within the past 12 months, did the food you bought not last and you didn't have the money to get more?: Never true Within the past 12 months, did you worry whether your food would run out before you got money to buy more?: Never true Do you have trouble paying for medicines?: No Do you have trouble getting transportation to medical appointments?: No Do you have trouble paying your heating and electricity bill?: No Do you have trouble taking care of your child, family member or friend?: No Do you have trouble with day-to-day activities such as bathing, preparing meals, shopping, managing finances, etc.?: No Are you currently unemployed and looking for a job?: No Are you interested in more education?: No Please select the resources that you would like help with: None Currently or been in a relationship where the following occur: no concerns reported AUDIT C Alcohol Use Questionnaire (AUDIT-C) 1. How often do you have a drink containing alcohol?: Never 3. How often do you have six or more drinks on one occasion?: Never Total Score: 0 Score Reviewed/Action Taken: No JAK-7 AMB Questionnaire JAK-7 Date JAK - 7 assessed: 05/03/23 Feeling nervous, anxious, or on edge: 0 = Not at all Not being able to stop or control worryin = Not at all Worrying too much about different things: 0 = Not at all Trouble relaxin = Not at all Being so restless that it is hard to sit still: 0 = Not at all Becoming easily annoyed or irritable: 0 = Not at all Feeling afraid as if something awful might happen: 0 = Not at all Total JAK-7 score (0-4 normal; 5-9 mild; 10-14 moderate; 15-21 severe): 0 Source: Developed by Drs. Kit Alarcon, Sarita Bowling, Dwight arora nd colleagues, with an educational brigid from [employer]. JAK-7 Assessment Billing JAK-7 Assessment Tool: JAK-7 Assessment 65957 ACT Questionnaire In the past 4 weeks, how much of the time did your asthma keep you from getting as much done at work, school or at home?: None of the time During the past 4 weeks, how often have you had shortness of breath?: Not at all During the past 4 weeks, how often did your asthma symptoms wake you up at night or earlier than usual in the morning?: Not at all During the past 4 weeks, how often have you had to use your rescue inhaler or nebulizer medication?: Not at all How would you rate your asthma control during the past 4 weeks?: Well controlled ACT Interpretation: Negative Score: 24 Review of Systems Const Denies body aches, Denies chills, Denies excessive sweating, Denies fatigue, Denies fever(s) and Denies headache(s) Eyes Denies blurry vision ENT Denies dysphagia, Denies vertigo, Denies dizziness, Denies headache(s), Denies hearing loss and Denies tinnitus Card Denies chest pain, Denies chest pain with activity, Denies syncope, Denies irregular heart rhythm and Denies dyspnea Resp Denies chest congestion, Denies cough, Denies hemoptysis, Denies dyspnea and Denies wheezing GI Denies abdominal pain, Denies melena, Denies hematochezia, Denies coffee ground emesis, Denies dysphagia, Denies diarrhea, Denies nausea and Denies vomiting Denies urinary frequency, Denies dysuria, Denies urinary hesitancy and Denies urinary urgency Musc Denies arthralgias, Denies limited range of motion, Denies muscle cramps and Denies muscle weakness Skin/Breast Denies rash and Denies skin ulcer Neuro Denies Abnormal speech present, Denies confusion, Denies vertigo, Denies dizziness, Denies syncope, Denies headache(s), Denies memory loss and Denies seizure-like activity Psych Denies anxiety, Denies confusion, Denies depression, Denies memory loss, Denies panic attacks and Denies paranoia Endo Denies excessive sweating, Denies fatigue, Denies flushing, Denies polydipsia and Denies polyuria Aller/Immun Denies wheezing Physical exam (Primary Care) Vital Signs: Last Vital Signs Pulse 85 05/03/23 15:15 BP 118/72 05/03/23 15:15 Pulse Ox 96 05/03/23 15:15 Oxygen Delivery Method Room Air 05/03/23 15:15 BMI result Body Mass Index 28.8 Tobacco/Smoking Status: Tobacco use Status Tobacco use date assessed 05/03/23 05/03/23 15:24 Patient Tobacco Use Status Former Tobacco user 05/03/23 15:24 Tobacco use type Smokeless Tobacco 05/03/23 15:24 e-Cigarette/Vaping Use Currently Using 05/03/23 15:24 PHQ-9: PHQ-9 Score PHQ-9: Total score 0 05/03/23 15:35 Depression Screening Interpretation: Negative Thrive Assessment: Date of Thrive Assessment Date Thrive assessed 05/03/23 05/03/23 15:24 Currently or been in a relationship where the following occur: no concerns reported Const General: cooperative, comfortable, no acute distress, alert and awake; No confusion Orientation/consciousness: oriented to person, oriented to place, patient oriented x3 and No confusion HENMT Head: Yes normocephalic Ears: external ears normal and TM's normal bilaterally Face and sinus: No sinus tenderness Mouth: Normal oral and palatal mucosa present and tongue normal Teeth and gingiva: dentition normal and gingiva normal Throat: Yes posterior oropharynx normal, Yes tonsils normal and Yes uvula midline Eyes Conjunctivae: conjunctivae normal Sclerae: sclerae normal Pupils: Equal, round and reactive pupils present EOM: EOMs intact bilaterally Direct Ophthalmoscopy: No no photophobia Neck Neck: Yes no lymphadenopathy, No tender and Yes no JVD Thyroid: Thyroid normal Carotids: no bruits Chest Chest palpation & inspection: no tenderness Resp Effort & Inspection: normal respiratory effort, no audible wheezes, not labored and no stridor Auscultation: no crackles, no rales, no rhonchi and no wheezes Cardio Jugular venous distension: no JVD Rate: regular rate, not bradycardic and not tachycardic Rhythm: regular rhythm Bruits: no carotid bruits Peripheral pulses: Peripheral pulses 2+ throughout GI Inspection: Yes normal to inspection, No abdominal wall ecchymosis and No visible herniation Palpation (GI): Soft to palpation, nontender, no guarding, not rigid and No hepatosplenomegaly present Auscultation: normoactive bowel sounds General: Yes no CVA tenderness Back/Spine/Pelvis Back: no CVA tenderness and No back tenderness Cervical Spine: cervical ROM normal Thoracic/Lumbar Spine: thoracic and lumbar spine normal to inspection, straight leg raise negative bilaterally, No thoraco-lumbar ROM limited and No lumbar spinal tenderness Skin Lesions: no lesions Rashes: no rashes Wounds: no wounds Neuro General: oriented to person, oriented to place, patient oriented x3, CN's II-XI intact bilaterally and No confusion Cranial nerves: Yes Equal, round and reactive pupils present and Yes Normal accommodation reflex present Cognition (Neuro): normal cognition Speech: No Abnormal speech present Gait exam (Neuro): Normal gait present Motor exam (neuro): 5/5 motor strength present throughout Extrem Right upper extremity: full ROM; no cyanosis Left upper extremity: full ROM; no cyanosis Right lower extremity: no edema Left lower extremity: no edema Psych Appearance: grossly normal Mental Status: mental status grossly normal Affect: normal affect Attitude: cooperative Thought process: Normal thought process present Assessment and Plan Assessment & Plan (1) Annual physical exam: Code(s): Z00.00 - Encounter for general adult medical examination without abnormal findin gs (2) Colon cancer screening: Code(s): Z12.11 - Encounter for screening for malignant neoplasm of colon Plan: Willing to do Cologuard (3) Breast cancer screening: Code(s): Z12.39 - Encounter for other screening for malignant neoplasm of breast Qualifiers: Breast cancer screening modality: mammogram Qualified Code(s): Z12.31 - Encounter for screening mammogram for malignant neoplasm of breast Plan: Advised to call and make appointment for mammogram at [facility]. (4) HTN (hypertension): Code(s): I10 - Essential (primary) hypertension Qualifiers: Hypertension type: primary hypertension Qualified Code(s): I10 - Essential (primary) hypertension Plan: Blood pressure acceptable today in office. Continues on lisinopril 10 mg with good effect. Goal blood pressure remain below 140/90 (5) Status post right foot surgery: Code(s): Z98.890 - Other specified postprocedural states Plan: Has gotten a 2nd opinion with new orthopedic at [facility]. She anticipates another surgery in fall 2022. (6) JAK (generalized anxiety disorder): Code(s): F41.1 - Generalized anxiety disorder Plan: She reports her anxiety is fairly well controlled with the use of marijuana and p.r.n. use of lorazepam. (7) Cervical cancer screening: Code(s): Z12.4 - Encounter for screening for malignant neoplasm of cervix Plan: Requesting a referral to [facility] operations research manager as she has not had a Pap in many years. (8) Presbyopia of both eyes: Code(s): H52.4 - Presbyopia Plan: She reports having issues with her vision over both eyes though right IM worse. She reports getting some kind of his surgery in her right eye that has worsened her vision. Requesting a referral to an eye doctor for evaluation. (9) Asthma: Code(s): J45.909 - Unspecified asthma, uncomplicated Qualifiers: Asthma severity: mild Asthma persistence: intermittent Asthma complication type: uncomplicated Qualified Code(s): J45.20 - Mild intermittent asthma, uncomplicated Plan: Patient reports asthma has been fairly well controlled with only p.r.n. use of albuterol inhaler. Otherwise denies any acute asthma exacerbations or nighttime awakenings with asthma symptoms Orders: Referrals Cologuard Test Z12.11 - Encounter for screening for malignant neoplasm of colon CAREER DISCOVERY TEACHER Referral Z12.4 - Encounter for screening for malignant neoplasm of cervix Ophthalmology Referral H52.4 - Presbyopia Medications: Refilled lorazepam 0.5 mg PO DAILY 7 days 7 tabs 0RF F41.9 - Anxiety disorder, unspecified Coding Level of Care Code Est Pt Prev Care 40-64y(88659) Diagnoses Annual physical exam Z00.00 Colon cancer screening Z12.11 Breast cancer screening Z12.31 Breast cancer screening modality: mammogram HTN (hypertension) I10 Hypertension type: primary hypertension Status post right foot surgery Z98.890 JAK (generalized anxiety disorder) F41.1 Cervical cancer screening Z12.4 Presbyopia of both eyes H52.4 Asthma J45.20 Asthma severity: mild Asthma persistence: intermittent Asthma complication type: uncomplicated Additional Codes JAK-7 Assessment Billing - JAK-7 Assessment Tool: JAK-7 Assessment [id number] ([id number])
[2023-05-03 15:15] VITALS: BP 118/72; PULSE 85; O2SAT 96; BMI 28.8
== END 2023-05-03 16:04 | disposition home or self-care (01) ==
PROVIDERS: PCP Physician Assistant; Visit Provider Physician Assistant
DX: Z00.00 Encounter for general adult medical examination without abnormal findings (principal); I10 Essential (primary) hypertension; Z98.890 Other specified postprocedural states; J45.20 Mild intermittent asthma, uncomplicated; F41.1 Generalized anxiety disorder; H52.4 Presbyopia
CPT/HCPCS: 99396

== ENCOUNTER 2023-09-15 14:59 | Outpatient (AMB) | payer OTHER, SELFPAY ==
[2023-09-15 15:26] VITALS: BP 116/70; PULSE 92; O2SAT 99; BMI 28.8
--- NOTE | 2023-09-15 15:26 | A.OFFPC_ITS ---
Vital Signs 09/15/23 15:26 Height 5 ft 1 in Weight 152 lb 8 oz BMI 28.8 BP 116/70 Blood Pressure Location Lt brachial Position Sitting Pulse 92 Pulse Source Pulse Oximeter Pulse Oximetry (%) 99 Oxygen Delivery Method Room Air Intake Visit Reasons: [facility] 08/27 08/30 due to unable to move body pains Intake Note: Patient is here to follow-up after a visit the emergency department at [facility] on 08/30/23. Pt needs new referral to see Lore wesley in [place]. 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 Accompanied by: Self / Same As Patient Allergies erythromycin base [ERYTHROMYCIN BASE] Allergy (Severe, Verified 09/15/23 15:55) ANAPHYLAXIS insulation Allergy (Unknown, Uncoded 09/15/23 15:27) unknown Medication List - Last Reconciled 09/15/23 by Corbin Gross PA-C acetaminophen 500 mg PO Q6H PRN 30 days albuterol sulfate 90 mcg/actuation (ProAir HFA) 2 puffs inhalation Q6H PRN 30 days amitriptyline 10 mg PO BEDTIME ascorbic acid (vitamin C) (Vitamin C) 500 mg PO DAILY epinephrine (EpiPen 2-Eric) 0.3 mg (0.3 mL) IM Q4H PRN 30 days gabapentin 300 mg PO TID 30 days lisinopril 10 mg PO DAILY lorazepam 0.5 mg PO DAILY 20 days methocarbamol 500 mg PO BEDTIME 15 days miscellaneous medical supply 1 ea miscellaneous DAILY 99 days miscellaneous medical supply 1 ea miscellaneous DAILY 99 days miscellaneous medical supply 1 ea miscellaneous DAILY 99 days miscellaneous medical supply 1 ea miscellaneous DAILY 99 days nitroglycerin 0.4 mg sublingual Q5M PRN 7 days omeprazole 20 mg PO DAILY 30 days oxycodone 5 mg PO QID PRN Shower Chair As directed triamcinolone acetonide 0.1% 1 appl topical DAILY 30 days walker (Ultra-Light Rollator misc) As directed Tobacco use date assessed: 07/30/23 Dental Screening Dental Screen Date: 09/15/23 Did you have a dental visit in the last 12 months?: No Did you have a dental problem in the last 6 months where you did not have access to dental care?: No Was dental information given to patient?: Patient has dentist [facility] 08/27 08/30 due to unable to move body pains HPI Details Patient is a 63 year female here today for routine annual physical.? Patient has a past medical history significant for hypertension, GERD, generalized anxiety disorder, osteoarthritis of the knees. Recently seen at [facility] for acute neck, bilateral shoulder and upper arm pain. X-rays were negative besides mild arthritis in her shoulders. Patient had workup with labs which were essentially normal. Namrata is discharged on a few days of narcotic pain medication. Differential diagnosis was thought to be a epidural abscesses, myositis, fibromyalgia, osteoarthritis. Did have a elevated CRP at 9.8. She reports she has been told she needs to go to [place] Of note patient does a history of fibromyalgia and was on gabapentin and amitriptyline though does not take this medication. Otherwise she continues to ask for more services at home. She does have a MEDICAL STAFF PHYSICIAN whom works with her. She is interested in getting a Life Alert bracelet. Try to set her up with community navigation to help her with her complex case and gain services that her appropriate for her. [facility] Medical History (Updated 09/15/23 @ 16:01 by Corbin Gross PA-C) Hammer toe of right foot Osteoarthritis of right knee Osteoarthritis of left knee RBBB (right bundle branch block with left anterior fascicular block) Heart attack Chest pain High blood pressure Fibromyalgia Arthritis Surgical History H/O toe surgery H/O rhinoplasty History of colon surgery History of ankle surgery H/O right knee surgery History of eye surgery Family History Father Myocardial infarction Mother Diabetes Myocardial infarction Mental health disorder Substance use disorder Sister Diabetes Social History Housing: House Alcohol intake: current Alcohol intake frequency: holidays/special occasions only Patient Tobacco Use Status: Former Tobacco user Tobacco use type: Smokeless Tobacco Cigarettes Per Day: 3 e-Cigarette/Vaping Use: Currently Using Second Hand Smoke Exposure: No Substance Use Type: Marijuana service: No Current occupational status: disabled Cognitive needs: Yes Hearing needs: No Vision needs: No Questionnaire Thrive Questionnaire Date Thrive assessed: 05/03/23 I am a: Patient What is your living situation today?: I have a steady place to live Within the past 12 months, did the food you bought not last and you didn't have the money to get more?: Sometimes True Within the past 12 months, did you worry whether your food would run out before you got money to buy more?: Sometimes True Do you have trouble paying for medicines?: Yes Do you have trouble getting transportation to medical appointments?: Yes Do you have trouble paying your heating and electricity bill?: Yes Do you have trouble taking care of your child, family member or friend?: No Do you have trouble with day-to-day activities such as bathing, preparing meals, shopping, managing finances, etc.?: Yes Are you currently unemployed and looking for a job?: No Are you interested in more education?: No Please select the resources that you would like help with: Housing/Retirement, Food, Paying for medicine and Transportation Currently or been in a relationship where the following occur: no concerns reported JAK-7 AMB Questionnaire JAK-7 Date JAK - 7 assessed: 05/03/23 Source: Developed by Drs. Kit Alarcon, Sarita Bowling, Dwight Mims and colleagues, with an educational brigid from [employer]. Review of Systems Const Denies headache(s) Eyes Denies loss of vision ENT Denies vertigo, Denies dizziness, Denies headache(s) and Denies sore throat Card Denies chest pain, Denies leg edema and Denies lightheadedness Resp Denies cough, Denies hemoptysis and Denies wheezing GI Denies abdominal pain, Denies melena, Denies constipation, Denies diarrhea and Denies vomiting Denies urinary frequency, Denies dysuria and Denies urinary urgency Musc Denies arthralgias, Denies joint swelling, Denies numbness and Denies tingling Neuro Denies Abnormal speech present, Denies behavioral changes, Denies vertigo, Denies dizziness, Denies headache(s), Denies loss of vision, Denies memory loss, Denies numbness and Denies tingling Psych Denies anxiety, Denies behavioral changes, Denies depression, Denies memory loss and Denies panic attacks Daniel/Lymph Denies easy bleeding and Denies easy bruising Aller/Immun Denies wheezing Physical exam (Primary Care) Vital Signs: Last Vital Signs Pulse 92 09/15/23 15:26 BP 116/70 09/15/23 15:26 Pulse Ox 99 09/15/23 15:26 Oxygen Delivery Method Room Air 09/15/23 15:26 BMI result Body Mass Index 28.8 Tobacco/Smoking Status: Tobacco use Status Tobacco use date assessed 07/30/23 09/15/23 15:27 Patient Tobacco Use Status Former Tobacco user 09/15/23 15:27 Tobacco use type Smokeless Tobacco 09/15/23 15:27 e-Cigarette/Vaping Use Currently Using 09/15/23 15:27 Thrive Assessment: Date of Thrive Assessment Date Thrive assessed 05/03/23 09/15/23 15:27 Currently or been in a relationship where the following occur: no concerns reported Const General: healthy appearing, no acute distress, alert and awake Nutritional Appearance: well nourished Orientation/consciousness: oriented to person, oriented to place and oriented to time HENMT Ears: TM's normal bilaterally General nose exam: Normal nasal mucous membranes and turbinates present Eyes Conjunctivae: conjunctivae normal Sclerae: sclerae normal Pupils: Equal, round and reactive pupils present Neck Neck: Yes no lymphadenopathy and Yes no JVD Thyroid: Thyroid normal Carotids: no bruits Resp Effort & Inspection: normal respiratory effort and not tachypneic Auscultation: no crackles, no rales, no rhonchi and no wheezes Cardio Rate: regular rate Rhythm: regular rhythm Heart sounds: no murmurs and normal S1 and S2 GI Palpation (GI): Soft to palpation, nontender, no hepatomegaly and no splenomegaly Auscultation: normal bowel sounds Skin General skin exam: no rashes or lesions noted and dry skin Neuro General: oriented to person, oriented to place and oriented to time Cranial nerves: Yes Equal, round and reactive pupils present Speech: No Abnormal speech present Gait exam (Neuro): Normal gait present Motor exam (neuro): no tremor noted Extrem Right upper extremity: full ROM Left upper extremity: full ROM Right lower extremity: full ROM; no edema Left lower extremity: full ROM; no edema Psych Mental Status: mental status grossly normal Speech and movement: Normal speech and movement present Affect: normal affect Attitude: cooperative Thought process: Normal thought process present Assessment and Plan Assessment & Plan (1) Cervical spine pain: Code(s): M54.2 - Cervicalgia Plan: Unclear etiology to patient's cervical spine pain that radiates into her shoulders and down her arm. Did have x-rays while in [place] her shoulders that did show mild arthritis. Most likely a cervical disc disease. Offered physical therapy though she declines. Likely would need CT or MRI of cervical spine to evaluate for disc herniation. She was prescribed short-term script of oxycodone 5 mg to use on a p.r.n. basis. We did discuss the habit-forming nature of this medication agreed to give her one more script to use for pain scales of 8-10. Will also increase her methocarbamol dose to 750 to provide better pain relief. She continues to want to be referred to [place] for her further evaluation. Referral has been placed (2) Dysuria: Code(s): R30.0 - Dysuria (3) Bipolar disorder: Code(s): F31.9 - Bipolar disorder, unspecified Qualifiers: Active/Remission status: currently active Current bipolar episode type: hypomanic Qualified Code(s): F31.0 - Bipolar disorder, current episode hypomanic Plan: Patient does have a complex medical history that his main more complicated with her mental health bipolar disorder. She is speaking with a mental health therapist. She does have a MEDICAL STAFF PHYSICIAN home to help her with activities of daily living due to her continued issues with pain. She had surgery on her foot a year ago which has had a long recovery. Will try to set her up with nursing navigation to help her with her complex case and to help her with getting the services she may qualify for. Also Interested in Life Alert bracelet Orders: Orders XR KUB 09/15/23 R30.0 - Dysuria UA CC w/rflx Micro + Cult 09/15/23 R30.0 - Dysuria Referrals Orthopedics Referral M54.2 - Cervicalgia Nurse Navigator Referral F31.0 - Bipolar disorder, current episode hypomanic Medications: New methocarbamol 750 mg PO BEDTIME 30 days 30 tabs 2RF M54.2 - Cervicalgia oxycodone 5 mg PO Q8H 7 days PRN 21 tabs 0RF pain M54.2 - Cervicalgia menthol 10.5% (Biofreeze (menthol)) 1 spray topical TID 30 days 118 mL 1RF M54.2 - Cervicalgia ascorbic acid (vitamin C) (Vitamin C) 500 mg PO DAILY 90 days 90 tabs 1RF Refilled omeprazole 20 mg PO DAILY 30 days 30 caps 3RF K21.9 - Gastro-esophageal reflux disease without esophagitis Discontinued ciprofloxacin HCl Discontinued Reason: Doctor's Order 250 mg PO BID 3 days 6 tabs 0RF R30.0 - Dysuria methocarbamol Discontinued Reason: Doctor's Order 500 mg PO BEDTIME 15 days 15 tabs 1RF muscle spasm M99.01 - Segmental and somatic dysfunction of cervical region Coding Level of Care Code Est Pt Level 4 (62255) Diagnoses Cervical spine pain M54.2 Dysuria R30.0 Bipolar affective disorder, current episode hypomanic F31.0 Active/Remission status: currently active Current bipolar episode type: hypomanic
== END 2023-09-15 16:31 | disposition home or self-care (01) ==
PROVIDERS: PCP Physician Assistant; Visit Provider Physician Assistant
DX: M54.2 Cervicalgia (principal); R30.0 Dysuria; F31.0 Bipolar disorder, current episode hypomanic
CPT/HCPCS: 99214

== ENCOUNTER 2024-01-10 08:36 | Outpatient (AMB) | payer OTHER, SELFPAY ==
--- NOTE | 2024-01-10 08:40 | A.OFFPC_ITS ---
Vital Signs 3 01/10/24 08:41 Height 5 ft 1 in Weight 155 lb 0.8 oz BMI 29.3 BP 114/68 Blood Pressure Location Lt brachial Position Sitting Pulse 95 Pulse Source Pulse Oximeter Pulse Oximetry (%) 97 Oxygen Delivery Method Room Air Intake Visit Reasons: f/u neck pain Intake Note: Patient is here to follow up on neck pain Environmental Resource Specialist Required: No Allergies erythromycin base [ERYTHROMYCIN BASE] Allergy (Severe, Verified 01/10/24 08:48) ANAPHYLAXIS insulation Allergy (Unknown, Uncoded 01/10/24 08:44) unknown Medication List - Last Reconciled 01/10/24 by Corbin Gross PA-C acetaminophen 500 mg PO Q6H PRN 30 days albuterol sulfate 90 mcg/actuation (ProAir HFA) 2 puffs inhalation Q6H PRN 30 days amitriptyline 10 mg PO BEDTIME ascorbic acid (vitamin C) (Vitamin C) 500 mg PO DAILY 90 days epinephrine (EpiPen 2-Eric) 0.3 mg (0.3 mL) IM Q4H PRN 30 days gabapentin 300 mg PO TID 30 days lisinopril 10 mg PO DAILY lorazepam 0.5 mg PO DAILY 20 days menthol 10.5% (Biofreeze (menthol)) 1 spray topical TID 30 days methocarbamol 750 mg PO BEDTIME 30 days miscellaneous medical supply 1 ea miscellaneous DAILY 99 days miscellaneous medical supply 1 ea miscellaneous DAILY 99 days miscellaneous medical supply 1 ea miscellaneous DAILY 99 days miscellaneous medical supply 1 ea miscellaneous DAILY 99 days nitroglycerin 0.4 mg sublingual Q5M PRN 7 days omeprazole 20 mg PO DAILY 30 days oxycodone 5 mg PO Q12H 7 days Shower Chair As directed triamcinolone acetonide 0.1% 1 appl topical DAILY 30 days walker (Ultra-Light Rollator misc) As directed Tobacco use date assessed: 01/10/24 HPI f/u neck pain 2 HPI0 Details Patient is a 63 year female here today for a follow-up visit. Patient has a past medical history significant for hypertension, GERD, generalized anxiety disorder, osteoarthritis of the knees. Metatarsal reconstruction (surgery done in 2022)- now followed by a [place] family dinner service specialist. Continues to wear surgical boot on her right foot. She continues to be emotionally distraught by the trauma of surgery. She reports she will be starting physical therapy. . Cervical spine.: She is asking for a refill on Biofreeze as this been effective for her pain on her shoulders and neck. .. Generalized anxiety disorder: Continues with p.r.n. use lorazepam for high point of anxiety. She does continue to use marijuana which has helped her with her pain and mental health issues. .. .. Hypertension:? Blood pressure today in office acceptable, will continue her current dose lisinopril. ? .. Asthma: Has been fairly well controlled with only p.r.n. use of albuterol inhaler. She denies any recent acute episodes asthma exacerbations or nighttime awakenings with asthma symptoms. [facility] Medical History Hammer toe of right foot Osteoarthritis of right knee Osteoarthritis of left knee RBBB (right bundle branch block with left anterior fascicular block) Heart attack Chest pain High blood pressure Fibromyalgia Arthritis Surgical History H/O toe surgery H/O rhinoplasty History of colon surgery History of ankle surgery H/O right knee surgery History of eye surgery Family History Father Myocardial infarction Mother Diabetes Myocardial infarction Mental health disorder Substance use disorder Sister Diabetes Social History Housing: House Alcohol intake: current Alcohol intake frequency: holidays/special occasions only Patient Tobacco Use Status: Former Tobacco user Tobacco use type: Smokeless Tobacco Cigarettes Per Day: 3 e-Cigarette/Vaping Use: Currently Using Second Hand Smoke Exposure: No Substance Use Type: Marijuana service: No Current occupational status: disabled Cognitive needs: Yes Hearing needs: No Vision needs: No Questionnaire Thrive Questionnaire Date Thrive assessed: 05/03/23 AUDIT C Alcohol Use Questionnaire (AUDIT-C) 1. How often do you have a drink containing alcohol?: Never 3. How often do you have six or more drinks on one occasion?: Never Total Score: 0 Score Reviewed/Action Taken: No JAK-7 AMB Questionnaire JAK-7 Date JAK - 7 assessed: 01/10/24 Source: Developed by Drs. Kit Alarcon, Sarita Bowling, Dwight Mims and colleagues, with an educational brigid from [employer]. Review of Systems Const Denies headache(s) Eyes Denies loss of vision ENT Denies vertigo, Denies dizziness, Denies headache(s) and Denies sore throat Card Denies chest pain, Denies leg edema and Denies lightheadedness Resp Denies cough, Denies hemoptysis and Denies wheezing GI Denies abdominal pain, Denies melena, Denies constipation, Denies diarrhea and Denies vomiting Denies urinary frequency, Denies dysuria and Denies urinary urgency Musc Denies arthralgias, Denies joint swelling, Denies numbness and Denies tingling Neuro Denies Abnormal speech present, Denies behavioral changes, Denies vertigo, Denies dizziness, Denies headache(s), Denies loss of vision, Denies memory loss, Denies numbness and Denies tingling Psych Denies anxiety, Denies behavioral changes, Denies depression, Denies memory loss and Denies panic attacks Daniel/Lymph Denies easy bleeding and Denies easy bruising Aller/Immun Denies wheezing Physical exam (Primary Care) Vital Signs: Last Vital Signs Pulse 95 01/10/24 08:41 BP 114/68 01/10/24 08:41 Pulse Ox 97 01/10/24 08:41 Oxygen Delivery Method Room Air 01/10/24 08:41 BMI result Body Mass Index 29.3 Tobacco/Smoking Status: Tobacco use Status Tobacco use date assessed 01/10/24 01/10/24 08:48 Patient Tobacco Use Status Former Tobacco user 01/10/24 08:41 Tobacco use type Smokeless Tobacco 01/10/24 08:41 e-Cigarette/Vaping Use Currently Using 01/10/24 08:41 Thrive Assessment: Date of Thrive Assessment Date Thrive assessed 05/03/23 01/10/24 08:41 Const General: healthy appearing, no acute distress, alert and awake Nutritional Appearance: well nourished Orientation/consciousness: oriented to person, oriented to place and oriented to time HENMT Ears: TM's normal bilaterally General nose exam: Normal nasal mucous membranes and turbinates present Eyes Conjunctivae: conjunctivae normal Sclerae: sclerae normal Pupils: Equal, round and reactive pupils present Neck Neck: Yes no lymphadenopathy and Yes no JVD Thyroid: Thyroid normal Carotids: no bruits Resp Effort & Inspection: normal respiratory effort and not tachypneic Auscultation: no crackles, no rales, no rhonchi and no wheezes Cardio Rate: regular rate Rhythm: regular rhythm Heart sounds: no murmurs and normal S1 and S2 GI Palpation (GI): Soft to palpation, nontender, no hepatomegaly and no splenomegaly Auscultation: normal bowel sounds Skin General skin exam: no rashes or lesions noted and dry skin Neuro General: oriented to person, oriented to place and oriented to time Cranial nerves: Yes Equal, round and reactive pupils present Speech: No Abnormal speech present Gait exam (Neuro): Normal gait present Motor exam (neuro): no tremor noted Extrem Right upper extremity: full ROM Left upper extremity: full ROM Right lower extremity: full ROM; no edema Left lower extremity: full ROM; no edema Ankle/foot/toe images: 2 1. WELL-HEALED SURGICAL SCARS, NO EDEMA OR ERYTHEMA OVER THE SKIN. Psych Mental Status: mental status grossly normal Speech and movement: Normal speech and movement present Affect: normal affect Attitude: cooperative Thought process: Normal thought process present Assessment and Plan Assessment & Plan (1) HTN (hypertension): Code(s): I10 - Essential (primary) hypertension Qualifiers: Hypertension type: primary hypertension Qualified Code(s): I10 - Essential (primary) hypertension Plan: Blood pressure acceptable today in office. Continues on lisinopril 10 mg with good effect. Goal blood pressure remain below 140/90 (2) JAK (generalized anxiety disorder): Code(s): F41.1 - Generalized anxiety disorder Plan: She reports her anxiety is fairly well controlled with the use of marijuana and p.r.n. use of lorazepam. (3) Asthma: Code(s): J45.909 - Unspecified asthma, uncomplicated Qualifiers: Asthma complication type: uncomplicated Asthma persistence: i ntermittent Asthma severity: mild Qualified Code(s): J45.20 - Mild intermittent asthma, uncomplicated Plan: Patient reports asthma has been fairly well controlled with only p.r.n. use of albuterol inhaler. Otherwise denies any acute asthma exacerbations or nighttime awakenings with asthma symptoms (4) Status post right foot surgery: Code(s): Z98.890 - Other specified postprocedural states Plan: She is status post right foot metatarsal surgery in 2022 .. She continues to seem somewhat emotionally distraught from trauma from surgery. As per HPI patient continues to have right foot pain. She uses a surgical boot on a daily basis. She ambulates with a sense since by cane. She is now followed by family dinner service specialist in [place] and is due to start physical therapy. Orders: Orders 2 Microalbumin, Random (w Creat) Today I10 - Essential (primary) hypertension Comprehensive [place]. Panel Fast Today I10 - Essential (primary) hypertension Medications: New 2 cane As directed 1 ea 0RF M47.816 - Spondylosis without myelopathy or radiculopathy, lumbar region Refilled 2 menthol 10.5% (Biofreeze (menthol)) 1 spray topical TID 30 days 118 mL 1RF M54.2 - Cervicalgia Coding Level of Care Code Est Pt Level 4 (96977) Diagnoses Primary hypertension I10 Hypertension type: primary hypertension JAK (generalized anxiety disorder) F41.1 Mild intermittent asthma without complication J45.20 Asthma complication type: uncomplicated Asthma persistence: intermittent Asthma severity: mild Status post right foot surgery Z98.890
[2024-01-10 08:41] VITALS: BP 114/68; PULSE 95; O2SAT 97; BMI 29.3
== END 2024-01-10 09:18 | disposition home or self-care (01) ==
PROVIDERS: PCP Physician Assistant; Visit Provider Physician Assistant
DX: I10 Essential (primary) hypertension (principal); F41.1 Generalized anxiety disorder; J45.20 Mild intermittent asthma, uncomplicated; Z98.890 Other specified postprocedural states
CPT/HCPCS: 99214

== ENCOUNTER 2024-05-18 15:59 | Outpatient (AMB) | payer OTHER, SELFPAY ==
--- NOTE | 2024-05-18 16:03 | MHC.PC.OV ---
Vital Signs 05/18/24 16:04 Height 5 ft 1 in Weight 162 lb 2 oz BMI 30.6 BP 128/80 Blood Pressure Location Lt brachial Position Sitting Pulse 86 Pulse Source Pulse Oximeter Pulse Oximetry (%) 98 Oxygen Delivery Method Room Air Intake Visit Reasons: [facility] ED F/U Allergies erythromycin base [ERYTHROMYCIN BASE] Allergy (Severe, Verified 01/10/24 08:48) ANAPHYLAXIS insulation Allergy (Unknown, Uncoded 01/10/24 08:44) unknown Tobacco use date assessed: 01/10/24 Dental Screening Dental Screen Date: 09/15/23 HPI [facility] ED F/U HPI Details Patient is a 64-year-old female here today for ER follow-up visit. She was seen at the ER by by ambulance after a fall resulting in a knee injury Now report having right shoulder pain and crepitus and decreased ROM. She reports she fell she fell directly her right upper arm. Since the fall she has continued to have decreased range of motion and right shoulder pain with certain vxshj-hq-rvmwbb exercises. She is concerned about damage done to her tendons in her right shoulder. PLAN: Will benefit from formal physical therapy. Will try for MRI due to concerns for rotator cuff tendon tear. Also add she has been dealing with more depression as of late due to the passing of her brother. She is interested in grief counseling. She has been set up with [facility] those looking for new counseling center. [facility] Medical History Hammer toe of right foot Osteoarthritis of right knee Osteoarthritis of left knee RBBB (right bundle branch block with left anterior fascicular block) Heart attack Chest pain High blood pressure Fibromyalgia Arthritis Surgical History H/O toe surgery H/O rhinoplasty History of colon surgery History of ankle surgery H/O right knee surgery History of eye surgery Family History Father Myocardial infarction Mother Diabetes Myocardial infarction Mental health disorder Substance use disorder Sister Diabetes Social History Housing: House Alcohol intake: current Alcohol intake frequency: holidays/special occasions only Patient Tobacco Use Status: Former Tobacco user Tobacco use type: Smokeless Tobacco Cigarettes Per Day: 3 e-Cigarette/Vaping Use: Currently Using Second Hand Smoke Exposure: No Substance Use Type: Marijuana service: No Current occupational status: disabled Cognitive needs: Yes Hearing needs: No Vision needs: No Questionnaire Thrive Questionnaire Date Thrive assessed: 05/03/23 JAK-7 AMB Questionnaire JAK-7 Date JAK - 7 assessed: 01/10/24 Source: Developed by Drs. Kit Alarcon, Sarita Bowling, Dwight Mims and colleagues, with an educational brigid from [employer]. Review of Systems Const Denies headache(s) Eyes Denies loss of vision ENT Denies vertigo, Denies dizziness, Denies headache(s) and Denies sore throat Card Denies chest pain, Denies leg edema and Denies lightheadedness Resp Denies cough, Denies hemoptysis and Denies wheezing GI Denies abdominal pain, Denies melena, Denies constipation, Denies diarrhea and Denies vomiting Denies urinary frequency, Denies dysuria and Denies urinary urgency Musc Denies arthralgias, Denies joint swelling, Denies numbness and Denies tingling Neuro Denies Abnormal speech present, Denies behavioral changes, Denies vertigo, Denies dizziness, Denies headache(s), Denies loss of vision, Denies memory loss, Denies numbness and Denies tingling Psych Denies anxiety, Denies behavioral changes, Denies depression, Denies memory loss and Denies panic attacks Daniel/Lymph Denies easy bleeding and Denies easy bruising Aller/Immun Denies wheezing Physical exam (Primary Care) Vital Signs: Last Vital Signs Pulse 86 05/18/24 16:04 BP 128/80 05/18/24 16:04 Pulse Ox 98 05/18/24 16:04 Oxygen Delivery Method Room Air 05/18/24 16:04 BMI result Body Mass Index 30.6 Tobacco/Smoking Status: Tobacco use Status Tobacco use date assessed 01/10/24 05/18/24 16:05 Patient Tobacco Use Status Former Tobacco user 05/18/24 16:05 Tobacco use type Smokeless Tobacco 05/18/24 16:05 e-Cigarette/Vaping Use Currently Using 05/18/24 16:05 Thrive Assessment: Date of Thrive Assessment Date Thrive assessed 05/03/23 05/18/24 16:05 Const General: healthy appearing, no acute distress, alert and awake Nutritional Appearance: well nourished Orientation/consciousness: oriented to person, oriented to place and oriented to time HENMT Ears: TM's normal bilaterally General nose exam: Normal nasal mucous membranes and turbinates present Eyes Conjunctivae: conjunctivae normal Sclerae: sclerae normal Pupils: Equal, round and reactive pupils present Neck Neck: Yes no lymphadenopathy and Yes no JVD Thyroid: Thyroid normal Carotids: no bruits Resp Effort & Inspection: normal respiratory effort and not tachypneic Auscultation: no crackles, no rales, no rhonchi and no wheezes Cardio Rate: regular rate Rhythm: regular rhythm Heart sounds: no murmurs and normal S1 and S2 GI Palpation (GI): Soft to palpation, nontender, no hepatomegaly and no splenomegaly Auscultation: normal bowel sounds Skin General skin exam: no rashes or lesions noted and dry skin Neuro General: oriented to person, oriented to place and oriented to time Cranial nerves: Yes Equal, round and reactive pupils present Speech: No Abnormal speech present Gait exam (Neuro): Normal gait present Motor exam (neuro): no tremor noted Extrem Other: RIGHT UPPER EXTREMITY/ SHOULDER: NO PALPABLE DEFORMITIES, DIFFICULTY WITH RAISING ARM ABOVE HEAD. POSITIVE EMPTY CAN TEST, POSITIVE GOLDEN TEST. Right upper extremity: ROM limited Left upper extremity: full ROM Right lower extremity: full ROM; no edema Left lower extremity: full ROM; no edema Psych Mental Status: mental status grossly normal Speech and movement: Normal speech and movement present Affect: normal affect Attitude: cooperative Thought process: Normal thought process present Assessment and Plan Assessment & Plan (1) Right rotator cuff tear: Code(s): M75.101 - Unspecified rotator cuff tear or rupture of right shoulder, not specified as traumatic Qualifiers: Encounter type: initial encounter Rotator cuff tear extent: incomplete Rotator cuff tear trauma status: traumatic Qualified Code(s): S46.011A - Strain of muscle(s) and tendon(s) of the rotator cuff of right shoulder, initial encounter Plan: As per HPI patient suffered a fall injuring right shoulder. Was seen at the ER did get x-ray of right shoulder without any significant humeral fracture. She continues to decreased range of motion and crepitus in the right shoulder. Continues to inflammation pain as well. Concerns here for rotator cuff tear thus will send for MRI. Would likely benefit from physical therapy. Will consider orthopedic evaluation if has come plate tear (2) Grief: Code(s): F43.21 - Adjustment disorder with depressed mood Plan: Reports she has been dealing with more depression and anxiety due to the recent passing of her brother. She is interested in grief counseling. (3) Status post fall: Code(s): Z91.81 - History of falling Plan: As per [facility] Orders: Orders MR shoulder RT wo con 05/18/24 M75.101 - Unspecified rotator cuff tear or rupture of right shoulder, not specified as traumatic PT Evaluation and Treatment 05/18/24 M75.101 - Unspecified rotator cuff tear or rupture of right shoulder, not specified as traumatic Medications: Refilled acetaminophen 500 mg PO Q6H PRN 120 caps 3RF fever 30 days Z98.890 - Other specified postprocedural states oxycodone Partial Fill upon patient request. 5 mg PO DAILY PRN 4 tabs 0RF pain 4 days M47.816 - Spondylosis without myelopathy or radiculopathy, lumbar region lorazepam 0.5 mg PO DAILY PRN 7 tabs 0RF anxiety 20 days F41.1 - Generalized anxiety disorder Coding Level of Care Code Est Pt Level 4 (89509) Diagnoses Traumatic incomplete tear of right rotator cuff, initial encounter S46.011A Encounter type: initial encounter Rotator cuff tear extent: incomplete Rotator cuff tear trauma status: traumatic Grief F43.21 Status post fall Z91.81
[2024-05-18 16:04] VITALS: BP 128/80; PULSE 86; O2SAT 98; BMI 30.6
== END 2024-05-18 17:03 | disposition home or self-care (01) ==
PROVIDERS: PCP Physician Assistant; Visit Provider Physician Assistant
DX: S46.011A Strain of muscle(s) and tendon(s) of the rotator cuff of right shoulder, initial encounter (principal); F43.21 Adjustment disorder with depressed mood; Z91.81 History of falling
CPT/HCPCS: 99214

== ENCOUNTER 2024-07-21 09:55 | Outpatient (REF) | payer OTHER, SELFPAY ==
--- NOTE | ~2024-07-21 | MR_ITS ---
EXAMINATION: MRI RIGHT SHOULDER WITHOUT CONTRAST CLINICAL INFORMATION: M75.101 - Unspecified rotator cuff tear or rupture of right shoulder, no... COMPARISON: None available. TECHNIQUE: MRI of the shoulder without contrast is performed on a 1.5 Amy high-field scanner. FINDINGS: ROTATOR CUFF: Supraspinatus and infraspinatus tendons are completely torn and retracted to the level of the glenoid. Mild supraspinatus muscle atrophy. Moderate infraspinatus muscle atrophy with mild fatty infiltration. Subscapularis tendinopathy with mild interstitial/undersurface partial tearing. BICEPS: Proximal biceps tendinopathy. CORACOACROMIAL ARCH: The undersurface of the acromion is curved with no subacromial spur. Moderate hypertrophic acromioclavicular osteoarthritis. LABRUM/CAPSULE: Degenerative undersurface tearing throughout the posterior labrum. GLENOHUMERAL JOINT/MARROW: Moderate joint effusion with diffuse synovitis. Prominent marginal osteophytes along the humeral head and neck junction. Humeral head is posteriorly subluxed with cartilage thinning and osteophytes along the posterior glenoid rim. Degenerative spurring and marrow changes along the greater tuberosity. ADDITIONAL FINDINGS: None. MR/MR shoulder RT wo con IMPRESSION: 1. Completely torn and retracted supraspinatus and infraspinatus tendons with [id number] muscle atrophy and mild fatty infiltration. 2. Subscapularis tendinopathy with mild interstitial/undersurface partial tearing. 3. Proximal biceps tendinopathy. 4. Moderate hypertrophic acromioclavicular osteoarthritis. 5. Moderate glenohumeral osteoarthritis with a joint effusion and diffuse synovitis. Degenerative undersurface tearing of the posterior labrum. Humeral head is slightly subluxed posteriorly. Electronically signed by: Nikunj Xavier MD 07/26/2024 01:31 PM EDT RP
== END 2024-07-21 09:56 | disposition home or self-care (01) ==
LOC: HO.MRI 09:55
PROVIDERS: PCP Physician Assistant; Visit Provider Physician Assistant
DX: M75.101 Unspecified rotator cuff tear or rupture of right shoulder, not specified as traumatic (principal)
CPT/HCPCS: 73221

== ENCOUNTER 2024-08-30 13:39 | Outpatient (AMB) | payer OTHER, SELFPAY ==
--- NOTE | 2024-08-30 13:48 | MHC.OFFVIS ---
Intake Visit Reasons: Right shoulder pain and weakness Intake Note: Teresa is a 64 year old female who presents with complaints of progressively worsening right shoulder pain and weakness. The patient describes her pain as sharp and severe in nature. The patient states that her symptoms have gotten worse over the last year in spite of continued non operative treatments. She has done range of motion exercises on her own which have given her minimal relief. The patient states that she has difficulty lifting her right hand to shoulder height. She has tried Tylenol and anti-inflammatory medicines which gave him minimal relief. She has had cortisone injections in the past which gave her no relief. Allergies erythromycin base [ERYTHROMYCIN BASE] Allergy (Severe, Verified 08/30/24 13:49) ANAPHYLAXIS insulation Allergy (Unknown, Uncoded 08/30/24 13:49) unknown Medication List - Last Reconciled 08/30/24 by David Prajapati MD acetaminophen 500 mg PO Q6H PRN 30 days amitriptyline 10 mg PO BEDTIME ascorbic acid (vitamin C) (Vitamin C) 500 mg PO DAILY 90 days cane As directed cane As directed epinephrine (EpiPen 2-Eric) 0.3 mg (0.3 mL) IM Q4H PRN 30 days gabapentin 300 mg PO TID 30 days lisinopril 10 mg PO DAILY lorazepam 0.5 mg PO DAILY PRN 20 days menthol 10.5% (Biofreeze (menthol)) 1 spray topical TID 30 days methocarbamol 750 mg PO BEDTIME 30 days miscellaneous medical supply 1 ea miscellaneous DAILY 99 days miscellaneous medical supply 1 ea miscellaneous DAILY 99 days miscellaneous medical supply 1 ea miscellaneous DAILY 99 days miscellaneous medical supply 1 ea miscellaneous DAILY 99 days nitroglycerin 0.4 mg sublingual Q5M PRN 7 days omeprazole 20 mg PO DAILY 30 days oxycodone 5 mg PO DAILY PRN 4 days Shower Chair As directed triamcinolone acetonide 0.1% 1 appl topical DAILY 30 days Ventolin HFA 90 mcg/actuation (albuterol sulfate) 2 puffs inhalation Q6H PRN 30 days NS walker (Ultra-Light Rollator misc) As directed [facility] Medical History (Updated 08/30/24 @ 16:08 by David Prajapati MD) RBBB (right bundle branch block with left anterior fascicular block) Hammer toe of right foot Osteoarthritis of right knee Osteoarthritis of left knee Heart attack Chest pain High blood pressure Fibromyalgia Arthritis Surgical History H/O toe surgery H/O rhinoplasty History of colon surgery History of ankle surgery H/O right knee surgery History of eye surgery Family History Father Myocardial infarction Mother Diabetes Myocardial infarction Mental health disorder Substance use disorder Sister Diabetes Social History Housing: House Alcohol intake: current Alcohol intake frequency: holidays/special occasions only Patient Tobacco Use Status: Former Tobacco user Tobacco use type: Smokeless Tobacco Cigarettes Per Day: 3 e-Cigarette/Vaping Use: Currently Using Second Hand Smoke Exposure: No Substance Use Type: Marijuana service: No Current occupational status: disabled Cognitive needs: Yes Hearing needs: No Vision needs: No Physical Exam Const Other: Well-nourished well-developed very friendly female awake alert and oriented x3 in no acute distress Extrem Other: Bilateral upper extremity examination shows good capillary refill, no skin lesions noted, normal sensation light touch Right shoulder examination shows almost full passive range of motion when compared to her left shoulder but limited active range of motion, 3/5 strength with supraspinatus testing, no instability Results Reviewed Results Reviewed: MRI of the patient's right shoulder shows a large rotator cuff tear with retraction to the lip of the glenoid as well as moderate glenohumeral joint degenerative changes and a high-riding humeral head consistent with rotator cuff tear arthropathy Assessment & Plan Assessment & Plan (1) Right shoulder pain: Code(s): M25.511 - Pain in right shoulder Category: Medical Plan Ms. Walker presents with progressively worsening right shoulder pain and weakness due to chronic right shoulder rotator cuff tear arthropathy. I had a lengthy discussion with the patient regarding the treatment options. At this point she appears to be failing continued non operative treatments. The risks and benefits of right shoulder reverse total shoulder replacement surgery were discussed at length with the patient. The patient is interested in learning more about the surgery. Thus, I will arrange for her to have a follow-up appointment with my partner, Dr. Mancilla. She will continue with her snnvx-vo-hzolqf exercises in the meantime. She will follow-up as instructed. Feel free to call me at any time should questions regarding her orthopedic management arise. Thank you very much for asking me to see this very friendly patient. I spent 21 minutes in reviewing the patient's records and imaging studies, seeing the patient and documenting in the medical record. Coding Level of Care Code New Pt Level 3 (36583) Complex EM visit Add On G2211 Diagnoses Right shoulder pain M25.511
== END 2024-08-30 14:10 | disposition home or self-care (01) ==
LOC: HO.HOS 13:39
PROVIDERS: PCP Physician Assistant; Visit Provider Orthopaedic Surgery
DX: M25.511 Pain in right shoulder (principal)
CPT/HCPCS: 99203; G2211

== ENCOUNTER → 2024-08-30 13:39 | Outpatient (BNVA) | payer OTHER, SELFPAY | PROVIDERS: PCP Physician Assistant; Visit Provider Orthopaedic Surgery | DX: M25.511 Pain in right shoulder (principal) | CPT/HCPCS: 99202 ==

== ENCOUNTER 2024-09-25 12:39 | Outpatient (AMB) | payer OTHER, SELFPAY ==
[2024-09-25 12:40] VITALS: BMI 30.6
--- NOTE | 2024-09-25 12:40 | MHC.OFFVIS ---
Vital Signs 09/25/24 12:40 Height 5 ft 1 in Weight 162 lb BMI 30.6 Intake Visit Reasons: OV - Discuss Right TSA Per Dr. Prajapati Intake Note: Teresa is a 64 year old right hand dominant female who presents today for a follow up of her right shoulder pain. She was referred by Dr. Prajapati to discuss a Right TSA. She complains of worsening right shoulder pain and weakness. Increased pain with activity and ROM has tried and failed a home exercise program, Tylenol, Ibuprofen and cortisone injections. Allergies erythromycin base [ERYTHROMYCIN BASE] Allergy (Severe, Verified 08/30/24 13:49) ANAPHYLAXIS insulation Allergy (Unknown, Uncoded 08/30/24 13:49) unknown HPI HPI OV - Discuss Right TSA Per Dr. Prajapati: Details: Teresa is a 64 year old right hand dominant female who presents today for a follow up of her right shoulder pain. She was referred by Dr. Prajapati to discuss a Right TSA. She complains of worsening right shoulder pain and weakness. Increased pain with activity and ROM has tried and failed a home exercise program, Tylenol, Ibuprofen and cortisone injections. She states she has been doing physical therapy on her own. She states that prior to her fall about 3 months ago she had no shoulder pain and was able to do everything. After the fall however she describes difficulty with abduction and pain with range of motion activity. [facility] Medical History RBBB (right bundle branch block with left anterior fascicular block) Hammer toe of right foot Osteoarthritis of right knee Osteoarthritis of left knee Heart attack Chest pain High blood pressure Fibromyalgia Arthritis Surgical History H/O toe surgery H/O rhinoplasty History of colon surgery History of ankle surgery H/O right knee surgery History of eye surgery Family History Father Myocardial infarction Mother Diabetes Myocardial infarction Mental health disorder Substance use disorder Sister Diabetes Social History Housing: House Alcohol intake: current Alcohol intake frequency: holidays/special occasions only Patient Tobacco Use Status: Former Tobacco user Tobacco use type: Smokeless Tobacco Cigarettes Per Day: 3 e-Cigarette/Vaping Use: Currently Using Second Hand Smoke Exposure: No Substance Use Type: Marijuana service: No Current occupational status: disabled Cognitive needs: Yes Hearing needs: No Vision needs: No Physical Exam Vital Signs: BMI result Body Mass Index 30.6 Extrem Other: Passive external rotation at 30 degrees and passive abduction to 90. Positive drop-arm. Gentle active abduction to 70 degrees. 4- out of 5 with empty can. Results Reviewed Results Reviewed: I personally reviewed the MR images. 1. Completely torn and retracted supraspinatus and infraspinatus tendons with [id number] muscle atrophy and mild fatty infiltration. 2. Subscapularis tendinopathy with mild interstitial/undersurface partial tearing. 3. Proximal biceps tendinopathy. 4. Moderate hypertrophic acromioclavicular osteoarthritis. 5. Moderate glenohumeral osteoarthritis with a joint effusion and diffuse synovitis. Degenerative undersurface tearing of the posterior labrum. Humeral head is slightly subluxed posteriorly. Assessment & Plan Assessment & Plan (1) Rotator cuff arthropathy of right shoulder: Code(s): M12.811 - Other specific arthropathies, not elsewhere classified, right shoulder Category: Medical Plan: This is a 64-year-old right-hand dominant woman with rotator cuff arthropathy of the right shoulder. She states this occurred in a fall about 3 months ago. Her MRI suggests that there was pre-existing tearing but the quality is poor of the MRI. She has not yet done physical therapy and is still stiff. I recommend physical therapy for temple of motion and see me back in 3 months. We discussed surgical intervention which she states she wants but, at this time, this is aggressive and she is still recovering from her fall. Orders: Orders PT Evaluation and Treatment Today M12.811 - Other specific arthropathies, not elsewhere classified, right shoulder Coding Level of Care Code Est Pt Level 4 (25375) Diagnoses Rotator cuff arthropathy of right shoulder M12.811
== END 2024-09-25 14:23 | disposition home or self-care (01) ==
PROVIDERS: PCP Physician Assistant; Visit Provider Orthopaedic Surgery
DX: M12.811 Other specific arthropathies, not elsewhere classified, right shoulder (principal)
CPT/HCPCS: 99214

== ENCOUNTER → 2024-09-25 12:39 | Outpatient (BNVA) | payer OTHER, SELFPAY | PROVIDERS: PCP Physician Assistant; Visit Provider Orthopaedic Surgery | DX: M12.811 Other specific arthropathies, not elsewhere classified, right shoulder (principal) | CPT/HCPCS: 99212 ==

== ENCOUNTER 2024-10-09 14:06 | Outpatient (AMB) | payer OTHER, SELFPAY ==
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
[2024-10-09 14:19] VITALS: BP 130/86; PULSE 72; O2SAT 98; BMI 31.0
== END 2024-10-09 15:09 | disposition home or self-care (01) ==
PROVIDERS: PCP Physician Assistant; Visit Provider Physician Assistant
DX: M12.812 Other specific arthropathies, not elsewhere classified, left shoulder (principal); F33.1 Major depressive disorder, recurrent, moderate; I10 Essential (primary) hypertension; F41.1 Generalized anxiety disorder; Z12.11 Encounter for screening for malignant neoplasm of colon; Z12.4 Encounter for screening for malignant neoplasm of cervix; M25.552 Pain in left hip; M25.562 Pain in left knee

== ENCOUNTER → 2024-10-09 14:06 | Outpatient (BNVA) | payer OTHER, SELFPAY | PROVIDERS: PCP Physician Assistant; Visit Provider Physician Assistant | DX: M12.812 Other specific arthropathies, not elsewhere classified, left shoulder (principal); F33.1 Major depressive disorder, recurrent, moderate; I10 Essential (primary) hypertension; F41.1 Generalized anxiety disorder; M25.552 Pain in left hip; M25.562 Pain in left knee | CPT/HCPCS: 99212 ==

== ENCOUNTER 2024-11-24 15:53 | Emergency (ER) | payer OTHER, SELFPAY ==
--- NOTE | ~2024-11-24 | XR_ITS ---
CLINICAL HISTORY: Knee injury Radiographs of the left knee, 4 views Comparison: 04/25/08 Findings: There is no fracture or dislocation. Status post anterior cruciate ligament reconstruction, also present on the prior study. Mild anterior subluxation of tibia relative to femur may indicate laxity. There is a screw in the proximal tibial metaphysis. Severe lateral tibiofemoral compartment joint space narrowing with moderate osteophytosis, new. Moderate medial tibiofemoral compartment joint space narrowing with large osteophytosis, new. Bone mineralization is normal. Small joint effusion. Soft tissue swelling. Impression: No fracture. Small joint effusion. Moderate to severe degenerative change in the medial and lateral tibiofemoral compartments could be secondary to altered biomechanics. Anterior cruciate ligament reconstruction with suspected laxity. This document has been electronically signed by: Regine Payton MD on 11/24/2024 17:41:33
--- NOTE | ~2024-11-24 | CT_ITS ---
CLINICAL HISTORY: neck pain and tenderness after fall CT cervical spine without contrast Comparison: CT of the cervical spine from 01/14/2021 Findings: No acute fracture of the cervical spine. Reversal of the cervical lordosis without significant change in vertebral heights or vertebral alignments. 4 mm anterolisthesis of the cervicothoracic junction (previously 4 mm). Mild increase in worsening degenerative changes include disc osteophyte complexes and facet arthropathy. Moderate spinal canal stenosis at C6-C7. Foraminal narrowing is multifocal including moderate to severe right at C4-C5. Interim worsening of multifocal facet arthropathy. No paraspinal hematoma. Mild scarring of the imaged lung apices with motion artifacts. IMPRESSION: No acute fracture of the cervical spine. This document has been electronically signed by: Rd Godwin MD on 11/25/2024 19:30:42
--- NOTE | ~2024-11-24 | XR_ITS ---
CLINICAL HISTORY: fall, pain 3 view, pelvis and left hip Comparison: None Findings: No acute fracture or dislocation. No significant arthritic change. The soft tissues are unremarkable. IMPRESSION: No acute findings. This document has been electronically signed by: Artem Love MD on 11/24/2024 17:48:09
--- NOTE | ~2024-11-24 | CT_ITS ---
CLINICAL HISTORY: Lt knee pain swelling, pls eval for occult fx CT of the left knee without contrast. Comparison: None Findings: Large effusion present as can be seen with internal derangement of the knee. Acute fracture involves the dorsal margin of medial aspect of the lateral tibial plateau (image 68 of series 7). Lateral tibial spine fracture appears old. Loose bodies are demonstrated at the time of the imaging. Postprocedural changes from likely ACL grafting. No hardware loosening of the distal screw in the imaged tibia. Moderate to severe tricompartment osteoarthritis of the left knee with osteophytes, subchondral sclerosis, and articular surface sclerosis and remodeling including all 3 compartments. Labor Relations Officer image demonstrates postprocedural changes from right knee arthroplasty. IMPRESSION: 1. Nondisplaced fracture of the dorsal margin of the lateral tibial plateau. 2. Severe tricompartment osteoarthritis of the left knee. 3. Previous procedure changes from ACL grafting. 4. Large effusion with loose bodies. This document has been electronically signed by: Rd Godwin MD on 11/25/2024 20:05:13
[2024-11-24 15:57] VITALS: BP 152/101; PULSE 96; O2SAT 98
[2024-11-24 15:58] VITALS: BP 159/99; PULSE 93; RESP 16; TEMP 37.1; O2SAT 98; BMI 29.9
--- NOTE | 2024-11-24 16:50 | ED_ITS ---
HPI - General Adult General Chief complaint: Extremity Injury, Lower Stated complaint: fall last night on ice, upper lft leg/knee pain. Time Seen by Provider: 11/24/24 16:49 Source: patient Limitations: no limitations History of Present Illness HPI narrative: 64-year-old female has a history of depression, anxiety, GERD, hypertension, presents for evaluation after a slip and fall. Patient states she was walking through the park last night during the snow and ice when she slipped and fell. Patient states she twisted and landed onto her left side. She did not strike her head. There was no LOC. Patient states she was able to ambulate after the incident. She awoke today with severe pain to the left leg, primarily to the left knee. She does have a history of meniscus repair in the past. She denies any paresthesia or paralysis. She has not tried any medication for this. Patient reports that she does get short prescriptions for oxycodone due to rotator cuff injury. Patient is otherwise feeling well. She has not had any other falls. Related Data Previous Rx's ?Medication ?Instructions ?Recorded miscellaneous medical supply 1 ea miscellaneous DAILY 99 days 03/11/23 #1 ea triamcinolone acetonide 0.1 % 1 appl topical DAILY 30 days #30 03/11/23 topical cream grams walker (Ultra-Light Rollator [facility] [place]) #1 ea 06/03/23 Shower Chair #1 ea 07/05/23 miscellaneous medical supply 1 ea miscellaneous DAILY 99 days 07/27/23 #1 ea miscellaneous medical supply 1 ea miscellaneous DAILY 99 days 07/27/23 #1 ea miscellaneous medical supply 1 ea miscellaneous DAILY 99 days 10/26/23 #1 ea epinephrine 0.3 mg/0.3 mL 0.3 mg (0.3 mL) IM Q4H PRN 01/20/24 injection, auto-injector (EpiPen anaphylaxis 30 days #2 ea 2-Eric) lisinopril 10 mg tablet 10 mg PO DAILY #90 tabs 04/10/24 cane #1 ea 04/25/24 cane #1 ea 05/01/24 acetaminophen 500 mg capsule 500 mg PO Q6H PRN fever 30 days 05/18/24 #120 caps nitroglycerin 0.4 mg sublingual 0.4 mg sublingual Q5M PRN chest 11/05/24 tablet pain 7 days #20 tabs Ventolin HFA 90 mcg/actuation 2 puff inhalation Q6H PRN 08/28/24 aerosol inhaler (albuterol sulfate) shortness of breath or wheezing 30 days #18 grams omeprazole 20 mg capsule,delayed 20 mg PO DAILY 30 days #30 caps 09/18/24 release ascorbic acid (vitamin C) 500 mg 500 mg PO DAILY 90 days #90 tabs 10/05/24 tablet (Vitamin C) gabapentin 300 mg capsule 300 mg PO TID 30 days #90 caps 10/05/24 docusate sodium 100 mg capsule 100 mg PO DAILY PRN constipation 10/09/24 (Colace) 15 days #15 caps lorazepam 0.5 mg tablet 0.5 mg PO DAILY PRN anxiety 20 10/09/24 days #7 tabs menthol 10.5 % topical spray 1 spray topical TID 30 days #118 mL 10/09/24 (Biofreeze (menthol)) miscellaneous medical supply 1 ea miscellaneous DAILY 99 days 10/09/24 #1 ea aluminum-mag hydroxide-simethicone 10 ml PO TID PRN indigestion 10/31/24 400 mg-400 mg-40 mg/5 mL oral susp #3,000 mL (Maalox Maximum Strength) amitriptyline 10 mg tablet 10 mg PO BEDTIME #30 tabs 11/02/24 methocarbamol 750 mg tablet 750 mg PO BEDTIME 30 days #30 tabs 11/02/24 oxycodone 5 mg tablet 5 mg PO DAILY PRN pain 4 days #4 11/22/24 tabs Allergies Allergy/AdvReac Type Severity Reaction Status Date / Time erythromycin base Allergy Severe ANAPHYLAXIS Verified 11/24/24 15:58 [ERYTHROMYCIN BASE] insulation Allergy Unknown unknown Uncoded 11/24/24 15:58 Review of Systems 2 Constitutional: Constitutional: Denies chills, Denies fever(s) and Denies headache(s) Eyes: Eyes: Denies change in vision and Denies other (No redness.) ENT: Denies headache(s), Denies nasal congestion, Denies nasal discharge, Denies neck pain and Denies sore throat Cardiovascular: Cardiovascular: Denies chest pain, Denies dyspnea, Denies dyspnea on exertion and Denies orthopnea Respiratory: Respiratory: Denies cough, Denies dyspnea and Denies dyspnea on exertion Gastrointestinal: Gastrointestinal: Denies abdominal pain, Denies melena, Denies hematochezia, Denies diarrhea, Denies nausea and Denies vomiting Musculoskeletal: Musculoskeletal: Denies back pain, Reports arthralgias, Denies muscle weakness, Denies neck pain and Denies numbness Integumentary/Breasts: Skin/Breast: Denies rash Neurologic: Denies headache(s), Denies focal weakness and Denies numbness Psychiatric: Psychiatric: Denies depression [facility] Past Medical History Medical History RBBB (right bundle branch block with left anterior fascicular block) Hammer toe of right foot Osteoarthritis of right knee Osteoarthritis of left knee Heart attack Chest pain High blood pressure Fibromyalgia Arthritis Surgical History H/O toe surgery H/O rhinoplasty History of colon surgery History of ankle surgery H/O right knee surgery History of eye surgery Family History Family History Father Myocardial infarction Mother Diabetes Myocardial infarction Mental health disorder Substance use disorder Sister Diabetes Social History Social History Housing: House Alcohol intake: current Alcohol intake frequency: does not drink Patient Tobacco Use Status: Former Tobacco user Tobacco use type: Smokeless Tobacco Cigarettes Per Day: 3 Smoked in Last 30 Days: Yes e-Cigarette/Vaping Use: Currently Using Second Hand Smoke Exposure: No Use of substances other than those prescribed or required for medical reasons: Yes Substance Use Type: Marijuana Advance Directives: No Advance Directives Information Provided: No Patient : No service: No Current occupational status: disabled Cognitive needs: Yes Hearing needs: No Vision needs: No Physical Exam ED Vital Signs: Vital Signs - 24 hr 11/24/24 15:58 11/24/24 17:20 11/24/24 19:03 Temperature 98.8 F 98.2 F Pulse Rate 93 85 Respiratory Rate 16 16 16 Blood Pressure 159/99 H 158/88 H Pulse Oximetry 98 98 Oxygen Delivery Method Room Air Room Air 11/24/24 20:56 11/24/24 22:10 11/25/24 00:00 Temperature 97.6 F 98.1 F Pulse Rate 92 76 79 Respiratory Rate 18 18 17 Blood Pressure 171/81 H 157/78 H 123/66 Pulse Oximetry 98 97 97 Oxygen Delivery Method Room Air Room Air Room Air 11/25/24 00:42 Temperature 98.4 F Pulse Rate Respiratory Rate Blood Pressure Pulse Oximetry Oxygen Delivery Method BMI result Body Mass Index 29.9 Const Other: Appears uncomfortable General: cooperative Neck Other: No spinous, paraspinous or paravertebral tenderness. Extrem Other: Indigo Vat Tender Cloth is 5/5 bilaterally of the upper extremities, full range of motion of upper extremities. Radial pulses are +2 and equal bilaterally. Lower extremities DP pulses are +1 and equal. Decreased range of motion of the left leg secondary to pain at the left hip and knee. Diffuse tenderness surrounding the left knee, distal femur. No obvious deformity ecchymosis or skin breakdown. Course Course Course Narrative: Prescription monitoring program confirms that the patient filled oxycodone 5 mg tablets on November 22. 6:45 p.m. reviewed x-ray findings with the patient, no acute process. I have had a discussion with the patient regarding disposition, and discussed the possibility of a knee immobilizer versus cane or walker for discharge home. Patient and does not feel comfortable with this stating that she has no help at home and does not feel that she is able to safely maneuver at home and perform her ADLs. I have also had discussion with the patient regarding analgesia in the emergency department. She continues to report that she is uncomfortable and does not feel comfortable with ambulation within the emergency department. Patient is agreeable to participate in physical therapy and discuss options with case management. We will check labs. 7:30 p.m. labs returned, no acute process. 8:45 p.m. patient pain has returned. We will provide additional dose. Patient will be seen by case management and physical therapy. November 25, 2024, 2:00 a.m. patient signed out in stable to Dr. Arvizu in condition pending reassessment and case management and physical therapy evaluation. Medications Administered Generic Name Dose Route Start Last Admin Trade Name Freq PRN Reason Stop Dose Admin Oxycodone HCl 5 mg 11/24/24 20:46 11/24/24 20:55 Oxycodone Hcl Immed Release 5 Mg Tablet PO 5 mg Q6H PRN Administration Pain, Severe (Pain Scale 7-10) Discontinued Medications Generic Name Dose Route Start Last Admin Trade Name Robert PRN Reason Stop Dose Admin Morphine Sulfate 4 mg 11/24/24 17:03 11/24/24 17:20 Morphine Sulfate 4 Mg/Ml Cartridge IVPUSH 11/24/24 17:04 4 mg ONCE ONE Administration Protocol Medical Decision Making Medical Decision Making [facility] Narrative: 64-year-old female status post slip and fall, pain to the left leg. Check x-ray of the left knee and hip. She did not strike her head. There is no neck or back pain, consideration for CT, hold at this time. Differential Diagnosis Differential Diagnoses: The differential diagnosis associated with the presentation includes Fracture Sprain Contusion Dislocation Admission/Observation Consideration of admission/observation: Escalation of care including admission/observation considered Lab Data [facility] Lab Attestation statement: I reviewed the patient's lab results. 11/24/24 18:55 11/24/24 18:55 Labs: Lab Results 11/24/24 Range/Units 18:55 WBC 10.7 (4.8-10.8) X10*3/uL RBC 4.66 (4.20-5.50) X10*6/uL Hgb 14.8 (12.0-16.0) g/dl Hct 41.8 (37.0-47.0) % MCV 89.7 (80.0-98.0) fL MCH 31.8 (27.0-33.0) pg MCHC 35.4 H (31.0-35.0) g/dl RDW 14.9 (11.0-16.0) % Plt Count 323 (160-400) X10*3/uL MPV 8.4 L (9.4-12.3) fL Immature Gran % (Auto) 0.2 (0.0-0.4) % Neut % (Auto) 51.2 (45-73) % Lymph % (Auto) 35.1 (20-40) % [place] % (Auto) 12.2 H (2-11) % Eos % (Auto) 0.7 (0-4) % Baso % (Auto) 0.6 (0-2) % Lymph # (Auto) 3.8 (1.2-4.9) X10*3/uL [place] # (Auto) 1.3 H (0.1-1.2) X10*3/uL Eos # (Auto) 0.1 (0.0-0.4) X10*3/uL Baso # (Auto) 0.1 (0.0-0.2) X10*3/uL Abs Immat Gran (auto) 0.02 (0.00-0.03) X10*3/uL Absolute Neuts (auto) 5.5 (2.0-8.3) x10*3/uL Absolute Nucleated RBC 0.000 (0.0-0.012) X10*3/uL Nucleated RBC % (auto) 0.0 (0.0-0.2) /100WBC Sodium 140 (135-145) mmol/L Potassium 3.7 (3.3-5.1) mmol/L Chloride 106 (96-108) mmol/L Carbon Dioxide 21 L (22-29) mmol/L Anion Gap 17 (12-20) BUN 10 (9-16) mg/dL Creatinine 0.53 (0.5-1.4) mg/dL Estim Creat Clear Calc 97.2 Estimated GFR > 60 Random Glucose 83 (60-115) mg/dL Calcium 10.2 (8.4-10.2) mg/dL Total Bilirubin 0.7 (0.0-1.0) mg/dL AST 33 H (5-31) U/L ALT 20 (0-31) U/L Alkaline Phosphatase 94 (39-117) U/L Total Protein 8.2 H (6.5-8.0) g/dL Albumin 4.3 (3.5-5.0) g/dL Influenza Type A (PCR) NEGATIVE (Negative) Influenza Type B (PCR) NEGATIVE (Negative) RSV RNA Qual (PCR) NEGATIVE (Negative) SARS-CoV-2 RNA (RT-PCR) NEGATIVE (Negative) Independent Interpretation I performed an independent interpretation of an: EKG Radiology Impression Discussion of test interpretation with radiology: I have reviewed the radiologist's reading. Radiologist Impression: [address] [address] XRay Report Signed Patient: Teresa Walker MR#: [id number] : 1960 Acct:[id number] Age/Sex: 64 / F ADM Date: 11/24/24 Loc: HO.ED Attending Dr: Ordering Physician: Yuniel Srivastava Date of Service: 11/24/24 Procedure(s): XR hip LT w PEL1V Accession Number(s): [id number] cc: Corbin Gross PA-C; Yuniel Srivastava~ CLINICAL HISTORY: fall, pain 3 view, pelvis and left hip Comparison: None Findings: No acute fracture or dislocation. No significant arthritic change. The soft tissues are unremarkable. IMPRESSION: No acute findings. This document has been electronically signed by: Artem Love MD on 11/24/2024 17:48:09 Dictated By: Atrem Love MD Signed By: <Electronically signed by Artem Love MD in OV> 11/24/241747 DD/ 47 TD/TT: 11/24/241747 Registered Dental Assistant: [place] [id number] XRay Report Signed Patient: Teresa Walker MR#: [id number] : 1960 Acct:[id number] Age/Sex: 64 / F ADM Date: 11/24/24 Loc: HO.ED Attending Dr: Ordering Physician: Allison Christianson MD Date of Service: 11/24/24 Procedure(s): XR knee LT 4V Accession Number(s): [id number] cc: Corbin Gross PA-C; Allison Christianson MD~ CLINICAL HISTORY: Knee injury Radiographs of the left knee, 4 views Comparison: 04/25/08 Findings: There is no fracture or dislocation. Status post anterior cruciate ligament reconstruction, also present on the prior study. Mild anterior subluxation of tibia relative to femur may indicate laxity. There is a screw in the proximal tibial metaphysis. Severe lateral tibiofemoral compartment joint space narrowing with moderate osteophytosis, new. Moderate medial tibiofemoral compartment joint space narrowing with large osteophytosis, new. Bone mineralization is normal. Small joint effusion. Soft tissue swelling. Impression: No fracture. Small joint effusion. Moderate to severe degenerative change in the medial and lateral tibiofemoral compartments could be secondary to altered biomechanics. Anterior cruciate ligament reconstruction with suspected laxity. This document has been electronically signed by: Regine Payton MD on 11/24/2024 17:41:33 Dictated By: Regine Chaparro MD Signed By: <Electronically signed by Regine Chaparro MD in OV> 11/24/241741 DD/ 174 Prescription Management I considered prescription management with: Pain Medication Discharge Plan Discharge Clinical Impression: Acute leg pain Patient Disposition: Still a Patient Prescriptions: No Action triamcinolone acetonide 0.1 % cream 1 appl topical DAILY 30 Days Qty: 30 0RF miscellaneous medical supply Misc 1 ea miscellaneous DAILY 99 Days Qty: 1 0RF (DME) Ultra-Light Rollator Misc See Rx Instructions .Route Qty: 1 0RF Rx Instructions: As directed (DME) Shower Chair Misc See Rx Instructions .Route Qty: 1 0RF Rx Instructions: As directed miscellaneous medical supply Misc 1 ea miscellaneous DAILY 99 Days Qty: 1 0RF miscellaneous medical supply Misc 1 ea miscellaneous DAILY 99 Days Qty: 1 0RF miscellaneous medical supply Misc 1 ea miscellaneous DAILY 99 Days Qty: 1 0RF epinephrine [EpiPen 2-Eric] 0.3 mg/0.3 mL auto-injector 0.3 mg IM Q4H PRN (Reason: anaphylaxis) 30 Days Qty: 2 0RF lisinopril 10 mg tablet 10 mg PO DAILY Qty: 90 2RF (DME) cane Device See Rx Instructions .Route Qty: 1 0RF Rx Instructions: As directed (DME) cane Device See Rx Instructions .Route Qty: 1 0RF Rx Instructions: As directed nitroglycerin 0.4 mg tablet, sublingual 0.4 mg sublingual Q5M PRN (Reason: chest pain) 7 Days Qty: 20 0RF Rx Instructions: do not exceed 3 doses per episode albuterol sulfate [Ventolin HFA] 90 mcg/actuation HFA aerosol inhaler 2 puff inhalation Q6H PRN (Reason: shortness of breath or wheezing) 30 Days Qty: 18 3RF omeprazole 20 mg capsule,delayed release(DR/EC) 20 mg PO DAILY 30 Days Qty: 30 0RF ascorbic acid (vitamin C) [Vitamin C] 500 mg tablet 500 mg PO DAILY 90 Days Qty: 90 0RF gabapentin 300 mg capsule 300 mg PO TID 30 Days Qty: 90 3RF alum-mag hydroxide-simeth [Maalox Maximum Strength] 400-400-40 mg/5 mL suspension 10 ml PO TID PRN (Reason: indigestion) Qty: 3000 0RF amitriptyline 10 mg tablet 10 mg PO BEDTIME Qty: 30 3RF methocarbamol 750 mg tablet 750 mg PO BEDTIME 30 Days Qty: 30 3RF oxycodone 5 mg tablet 5 mg PO DAILY PRN (Reason: pain) 4 Days Qty: 4 0RF Rx Instructions: Partial Fill upon patient request. acetaminophen 500 mg capsule 500 mg PO Q6H PRN (Reason: fever) 30 Days Qty: 120 3RF lorazepam 0.5 mg tablet 0.5 mg PO DAILY PRN (Reason: anxiety) 20 Days Qty: 7 0RF Biofreeze (menthol) 10.5 % aerosol,spray 1 spray topical TID 30 Days Qty: 118 3RF miscellaneous medical supply Misc 1 ea miscellaneous DAILY 99 Days Qty: 1 0RF Rx Instructions: NEED FOR A LIBRARIAN SPECIAL [employer]LECTIONS/ GRABBER docusate sodium [Colace] 100 mg capsule 100 mg PO DAILY PRN (Reason: constipation) 15 Days Qty: 15 1RF Print Language: Yoruba
[2024-11-24 17:20] VITALS: RESP 16
[2024-11-24] MEDS: Morphine Sulfate 4 MG/ML CARTRIDGE IVPUSH (17:20)
--- NOTE | 2024-11-24 18:35 | ECG_ITS ---
Test Reason : FALL Blood Pressure : */* mmHG Vent. Rate : 83 BPM Atrial Rate : 83 BPM P-R Int : 150 ms QRS Dur : 120 ms QT Int : 430 ms P-R-T Axes : 47 -28 109 degrees QTcB Int : 505 ms Sinus rhythm with Premature atrial complexes Minimal voltage criteria for LVH, may be normal variant ( [place] product ) Septal infarct , age undetermined Abnormal ECG When compared with ECG of 26-Nov-2022 14:07, Left bundle branch block is no longer Present Septal infarct is now Present Referred By: Yuniel Srivastava Electronically Signed By: Lei Borden
[2024-11-24 19:00] LABS: MANUAL DIFF FLAG NO
[2024-11-24 19:02] LABS: Basophils Absolute Auto 0.1 X10*3/uL (0.0-0.2); Basophils Percent Auto 0.6 % (0-2); Eosinophils Absolute Auto 0.1 X10*3/uL (0.0-0.4); Eosinophils Percent Auto 0.7 % (0-4); Hematocrit 41.8 % (37.0-47.0); Hemoglobin 14.8 g/dl (12.0-16.0); Imm Gran Abs Auto 0.02 X10*3/uL (0.00-0.03); Imm Gran Pct Auto 0.2 % (0.0-0.4); Lymphocytes Absolute Auto 3.8 X10*3/uL (1.2-4.9); Lymphocytes Percent Auto 35.1 % (20-40); Mean Corpuscular HGB Conc 35.4 g/dl (31.0-35.0); Mean Corpuscular Hemoglobin 31.8 pg (27.0-33.0); Mean Corpuscular Volume 89.7 fL (80.0-98.0); Mean Platelet Volume 8.4 fL (9.4-12.3); Monocytes Absolute Auto 1.3 X10*3/uL (0.1-1.2); Monocytes Percent Auto 12.2 % (2-11); Neutrophils Absolute Auto 5.5 x10*3/uL (2.0-8.3); Neutrophils Percent Auto 51.2 % (45-73); Platelet Count 323 X10*3/uL (160-400); Red Blood Count 4.66 X10*6/uL (4.20-5.50); Red Cell Distribution Width 14.9 % (11.0-16.0); White Blood Count 10.7 X10*3/uL (4.8-10.8)
[2024-11-24 19:03] VITALS: BP 158/88; PULSE 85; RESP 16; TEMP 36.8; O2SAT 98
[2024-11-24 19:19] LABS: Alanine Aminotransferase 20 U/L (0-31); Albumin Level 4.3 g/dL (3.5-5.0); Alkaline Phosphatase 94 U/L (39-117); Anion Gap 17 (12-20); Aspartate Amino Transferase 33 U/L (5-31); Bilirubin Total 0.7 mg/dL (0.0-1.0); Blood Urea Nitrogen 10 mg/dL (9-16); Calcium 10.2 mg/dL (8.4-10.2); Carbon Dioxide 21 mmol/L (22-29); Chloride 106 mmol/L (96-108); Creatinine Clr Calc Pharmacy 97.2; Estimated Glomerular Filt Rate > 60; Glucose Random 83 mg/dL (60-115); Potassium 3.7 mmol/L (3.3-5.1); Sodium 140 mmol/L (135-145); Total Protein 8.2 g/dL (6.5-8.0)
[2024-11-24 19:40] LABS: Influenza A PCR NEGATIVE (Negative); Influenza B PCR NEGATIVE (Negative); Resp Syncy Virus RNA Qual PCR NEGATIVE (Negative); SARS COV2 PCR INHOUSE NEGATIVE (Negative)
[2024-11-24] MEDS: oxyCODONE HCl Immed Release 5 MG TABLET PO (20:55)
[2024-11-24 20:56] VITALS: BP 171/81; PULSE 92; RESP 18; TEMP 36.4; O2SAT 98
[2024-11-24 22:10] VITALS: BP 157/78; PULSE 76; RESP 18; TEMP 36.7; O2SAT 97
--- NOTE | 2024-11-24 22:45 | MHC.CM.ED ---
CM met with this patient at the request of Yuniel CHATMAN. Pt is A&Ox4. Fell and c/o knee pain. Severe arthritis. Medically cleared. Pt does not think she can care for herself at home d/t injury. Cannot bear weight. PT pending for the morning. Pt is agreeable to STR Lives alone. Uses a cane. Has a walker. Has [employer] services 21 hours/week from [place]. Has friend, Deanna Coronel as contact ([phone]). [facility] Declines to complete a HCP. Referrals made to local [facility] CM will follow
[2024-11-25] VITALS: BP 123/66; PULSE 79; RESP 17; O2SAT 97
[2024-11-25 00:42] VITALS: TEMP 36.9
--- NOTE | 2024-11-25 00:43 | MHC.EDTECH ---
This tech took over are of patient at 2300,rounded and introduced self to pt,attempted to do a patient belongings list patient stated I do not want to do that now I'm too tired and in pain T/W made KANNAN Gamez aware,will re-attempt,call marinelli in reach
[2024-11-25] MEDS: oxyCODONE HCl Immed Release 5 MG TABLET PO ×4 (02:56→22:23)
[2024-11-25 07:38] VITALS: BP 123/71; PULSE 67; RESP 16; O2SAT 96
--- NOTE | 2024-11-25 07:39 | PC.NURSE ---
Assumed care of pt at 0700. Pt resting in bed quietly, respirations even and unlabored, no increased wob/sob noted, vital signs taken and updated. Pt updated on plan of care/ pt kevin harris. Call marinelli within reach, all needs met at this time.
[2024-11-25] MEDS: Lidocaine 4 % Patch ADH..PATCH 1 PATCH TRANSDERMA (08:27)
[2024-11-25 09:12] VITALS: BP 123/71; PULSE 67; O2SAT 96
--- NOTE | 2024-11-25 10:40 | PHA.MEDREC ---
Pharmacy Consult ? Medication Reconciliation Pharmacy has completed the medication reconciliation. Steve spoke to patient to confirm medication list. Patient no longer takes amitriptyline, she takes gabapentin 300 mg once daily, menthol tid prn pain and methocarbamol 750 mg at bedtime prn muscle spasms. Last dose of medications was 11/23/24.
[2024-11-25] MEDS: LORazepam 0.5 MG TABLET PO (12:11)
[2024-11-25 12:12] VITALS: BP 143/93; PULSE 72; RESP 18; TEMP 36.8; O2SAT 97
[2024-11-25 18:54] LABS: Appearance Urine Clear; Color Urine Yellow; Glucose Urine UA Negative (Negative); Leukocyte Esterase Urine Trace (Negative); Nitrite Urine Negative (Negative); PH 5.5 (5.0-9.0); UMIC TRIGGER UA YES; Urine Blood Negative (Negative); Urine Ketones Negative (Negative); Urine Protein Negative (Neg-Trace)
[2024-11-25 18:58] LABS: Bacteria Urine None Seen (None Seen); Hyaline Casts Urine 0-2 /LPF (0-2); RBC Urine 0-2 /HPF (0-2); Squamous Epithelial Cell Urine 0-2 /HPF (0-2); WBC Urine 0-5 /HPF (0-5)
[2024-11-25 18:59] VITALS: BP 142/86; PULSE 87; RESP 16; O2SAT 96
[2024-11-25] MEDS: methocarbamoL 750 MG TABLET PO (20:00)
[2024-11-26 01:12] VITALS: BP 134/92; PULSE 88; RESP 18; TEMP 36.7; O2SAT 96
[2024-11-26] MEDS: oxyCODONE HCl Immed Release 5 MG TABLET PO ×3 (04:49→17:07)
--- NOTE | 2024-11-26 04:59 | PC.NURSE ---
RN at bedside rounding on pt and administered PRN medication, noted IV line in left hand dislodged. Applied dry cleaning dressing, bleeding controlled.
[2024-11-26] MEDS: Omeprazole 20 MG CAPSULE.DR PO (06:15)
--- NOTE | 2024-11-26 08:35 | MHC.CM.PN ---
PT NOW W/NONDISPLACED LEFT TIBIAL FX AWAITING PT TO REVISIT D/T NEWLY FOUND FX AND BED OFFER FOR STR, SNF REFERRAL UPDATED AND PER CM PREVIOUS NOTE PT DOES NOT WANT [facility], CM WILL CONT TO FOLLOW.
[2024-11-26 08:37] VITALS: BP 151/93; PULSE 89; RESP 16; O2SAT 98
--- NOTE | 2024-11-26 08:41 | MHC.EDTECH ---
Change pt bed incon of urine, food was warmed up twice, pt is still stating food is cold.
[2024-11-26 09:46] VITALS: BP 137/61
[2024-11-26] MEDS: Gabapentin 300 MG CAPSULE PO (09:46)
[2024-11-26] MEDS: lisinopriL 10 MG TABLET PO (09:46)
[2024-11-26] MEDS: Ascorbic Acid 500 MG TABLET PO (09:46)
--- NOTE | 2024-11-26 10:00 | PC.NURSE ---
Patient refused to participate in education or teaching of use of crutches. patient states she can not use them because of her injured right shoulder/rotator cuff. made aware.
[2024-11-26] MEDS: LORazepam 0.5 MG TABLET PO ×2 (10:54→20:43)
[2024-11-26 20:31] VITALS: BP 126/67; PULSE 85; RESP 18; TEMP 36.7; O2SAT 95
[2024-11-26] MEDS: methocarbamoL 750 MG TABLET PO (20:38)
--- NOTE | 2024-11-26 20:44 | PC.NURSE ---
This entry writer assumed care of this Pt at 1900. Pt A&Ox3, reports 9/10 left leg pain. Knee immobilize on. Ice pack applied. Pt medicated per DEC.
[2024-11-27] MEDS: oxyCODONE HCl Immed Release 5 MG TABLET PO ×2 (01:48→09:43)
[2024-11-27 03:16] VITALS: BP 139/83; PULSE 78; RESP 18; TEMP 36.8; O2SAT 96
--- NOTE | 2024-11-27 05:30 | PC.NURSE ---
Pt incontinent of urine, two assist with new linens and cleaning up. Purewick applied per request.
--- NOTE | 2024-11-27 09:16 | MHC.CM.ED ---
Addendum entered by Natalie Mireles 11/27/24 12:31: [facility], [facility] and [facility] are still reviewing. No bed offers yet. Referral broadcasted within 50 miles of patient's home to all facilities contracted with [facility] [place]. Original Note: Patient remains in ER. Clinical updates sent to facilities still reviewing: [place] for [facility], [facility], [facility], [facility] and [facility]. Continue to monitor for d/c needs.
[2024-11-27] MEDS: Omeprazole 20 MG CAPSULE.DR PO (09:43)
[2024-11-27] MEDS: Ascorbic Acid 500 MG TABLET PO (09:43)
[2024-11-27] MEDS: lisinopriL 10 MG TABLET PO (09:43)
[2024-11-27 11:55] VITALS: BP 157/93; PULSE 89; RESP 20; TEMP 36.8; O2SAT 98
[2024-11-27] MEDS: LORazepam 0.5 MG TABLET PO (12:20)
--- NOTE | 2024-11-27 13:37 | MHC.CM.ED ---
Addendum entered by Natalie Mireles 11/27/24 15:31: Nasir BRUNNER and Ruth of patient experience met with patient. Patient will d/c home with [facility]. Referral broadcasted in [employer] at this time. Tiara TYLER booked for 4pm. Patient, Terri BRUNNER and Joanie CHATMAN aware. Original Note: Patient remains in ER. Physical therapy attempted eval this morning. Patient refused to get out of bed. Only bed offers at this time are [facility] in [facility] or [facility]. Met with patient to discuss bed offers. Patient started conversation by saying My doctor is really upset that I'm in the emergency room and not in the hospital. T/W attempted to explained inpatient level of care regulations. Patient continued to interrupt T/W and started raising her voice. T/W asked patient to lower her voice. Patient continued to complain that this isn't a real hospital and I have been treated like shit since I got here. T/W reiterated my role as a ER Development Technician. 2 bed offers provided to patient. Patient became irrate and stated No fucking way. I live here! T/W attempted to explain her insurance was only contracted with certain facilities and no beds were available locally. Patient stated I'm calling my lawyer criminal and continued to yell at T/W. At that time, T/W ended conversation and exited room. Elizabeth Diaz CM director aware. Continue to mo itor for d/c needs.
[2024-11-27] MEDS: Naloxone HCl Nasal TAKE HOME 4 MG SPRAY 8 MG NOSTRILALT (17:03)
[2024-11-27 17:04] VITALS: BP 153/83; PULSE 108; RESP 20; TEMP 36.6
--- NOTE | 2024-11-28 12:51 | MHC.CM.ED ---
Patient already d/c'd home. [facility] is only agency able to accept patient. Agency will reach out to patient to arrange services.
== END 2024-11-27 17:39 | disposition home or self-care (01) ==
PROVIDERS: Physician Assistant; Emergency Provider Emergency Medicine; PCP Physician Assistant
DX: S82.142A Displaced bicondylar fracture of left tibia, initial encounter for closed fracture (principal); M25.552 Pain in left hip; R10.2 Pelvic and perineal pain; I44.7 Left bundle-branch block, unspecified; M25.562 Pain in left knee; M79.605 Pain in left leg; R51.9 Headache, unspecified; M54.2 Cervicalgia; R26.81 Unsteadiness on feet; W00.0XXA Fall on same level due to ice and snow, initial encounter; Y93.01 Activity, walking, marching and hiking; Y92.9 Unspecified place or not applicable; Y99.8 Other external cause status; Z87.891 Personal history of nicotine dependence; Z79.899 Other long term (current) drug therapy; Z03.818 Encounter for observation for suspected exposure to other biological agents ruled out
CPT/HCPCS: 0241U; 36415; 72125; 73502; 73564; 73700; 80053; 81001; 85025; 93005; 96374; 97162; 99285; J2270

== ENCOUNTER → 2024-11-24 16:55 | Outpatient (BNV) | payer OTHER, SELFPAY | PROVIDERS: Emergency Provider Emergency Medicine; PCP Physician Assistant; Visit Provider Radiology Diagnostic Radiology | DX: S80.912A Unspecified superficial injury of left knee, initial encounter (principal); M25.552 Pain in left hip | CPT/HCPCS: 73502; 73564 ==

== ENCOUNTER → 2024-11-24 18:35 | Outpatient (BNV) | payer OTHER, SELFPAY | PROVIDERS: Emergency Provider Emergency Medicine; PCP Physician Assistant; Visit Provider Internal Medicine Cardiovascular Disease | DX: I49.1 Atrial premature depolarization (principal); I44.7 Left bundle-branch block, unspecified | CPT/HCPCS: 93010 ==

== ENCOUNTER → 2024-11-25 17:10 | Outpatient (BNV) | payer OTHER, SELFPAY | PROVIDERS: Emergency Provider Emergency Medicine; PCP Physician Assistant; Visit Provider Radiology Neuroradiology | DX: M54.2 Cervicalgia (principal) | CPT/HCPCS: 72125; 73700 ==

== ENCOUNTER 2024-12-27 09:57 | Outpatient (AMB) | payer OTHER, SELFPAY ==
--- NOTE | 2024-12-27 09:59 | A.OFFPC_ITS ---
Vital Signs 12/27/24 10:01 Height 5 ft 1 in Weight 159 lb BMI 30.0 BP 120/82 Blood Pressure Location Lt brachial Position Sitting Pulse 64 Pulse Source Pulse Oximeter Pulse Oximetry (%) 98 Oxygen Delivery Method Room Air Intake Visit Reasons: f/u Braille Typist Required: No Accompanied by: Self / Same As Patient Allergies erythromycin base [ERYTHROMYCIN BASE] Allergy (Severe, Verified 12/27/24 10:14) ANAPHYLAXIS insulation Allergy (Unknown, Uncoded 12/27/24 10:14) unknown Medication List - Last Reconciled 12/27/24 by Corbin Gross PA-C acetaminophen 500 mg PO Q6H PRN 30 days alum-mag hydroxide-simeth 400-400-40 mg/5 mL (Maalox Maximum Strength) 10 mL PO TID PRN ascorbic acid (vitamin C) (Vitamin C) 500 mg PO DAILY 90 days cane As directed cane As directed docusate sodium (Colace) 100 mg PO DAILY PRN 15 days epinephrine (EpiPen 2-Eric) 0.3 mg (0.3 mL) IM Q4H PRN 30 days gabapentin 300 mg PO DAILY lisinopril 10 mg PO DAILY lorazepam 0.5 mg PO DAILY PRN 20 days menthol 10.5% (Biofreeze (menthol)) 1 spray topical TID PRN methocarbamol 750 mg PO BEDTIME PRN nitroglycerin 0.4 mg sublingual Q5M PRN 7 days omeprazole 20 mg PO DAILY@0630 oxycodone 5 mg PO DAILY PRN 4 days Shower Chair As directed Ventolin HFA 90 mcg/actuation (albuterol sulfate) 2 puffs inhalation Q6H PRN 30 days NS walker (Ultra-Light Rollator misc) As directed Tobacco use date assessed: 12/27/24 Fall risk assessment: 1 Fall in past year Last assessed Fall Risk: 12/27/24 Dental Screening Dental Screen Date: 12/27/24 Did you have a dental visit in the last 12 months?: No Did you have a dental problem in the last 6 months where you did not have access to dental care?: No Was dental information given to patient?: Patient has dentist HPI f/u HPI Details Patient is a 64-year-old female here today for follow-up visit. She experienced a fall last month, leading to the fracture, which was initially misdiagnosed resulting in a delay in proper treatment. She did not go CT of knee that did show a tibial plateau fracture. The injury has not required surgical intervention and she experiences signifi cant ongoing leg, hip, and back pain. Her condition is complicated by a history of multiple knee and ankle surgeries, leading to chronic pain and instability. Has upcoming appt with ortho next week . She does have home physical therapy She is requesting knee braces [facility] Medical History RBBB (right bundle branch block with left anterior fascicular block) Hammer toe of right foot Osteoarthritis of right knee Osteoarthritis of left knee Heart attack Chest pain High blood pressure Fibromyalgia Arthritis Surgical History H/O toe surgery H/O rhinoplasty History of colon surgery History of ankle surgery H/O right knee surgery History of eye surgery Family History Father Myocardial infarction Mother Diabetes Myocardial infarction Mental health disorder Substance use disorder Sister Diabetes Social History Housing: House Alcohol intake: current Alcohol intake frequency: does not drink Patient Tobacco Use Status: Former Tobacco user Tobacco use type: Smokeless Tobacco Cigarettes Per Day: 3 e-Cigarette/Vaping Use: Currently Using Second Hand Smoke Exposure: No Substance Use Type: Marijuana service: No Current occupational status: disabled Cognitive needs: Yes Hearing needs: No Vision needs: No Questionnaire PHQ-9 Over the last 2 weeks, how often have you been bothered by any of the following problems? 1. Little interest or pleasure in doing things: not at all 2. Feeling down, depressed, or hopeless: not at all 3. Trouble falling or staying asleep, or sleeping too much: not at all 4. Feeling tired or having little energy: not at all 5. Poor appetite or overeating: not at all 6. Feeling bad about yourself - or that you are a failure or have let yourself or your family down: not at all 7. Trouble concentrating on things, such as reading the newspaper or watching television: not at all 8. Moving or speaking so slowly that other people could have noticed. Or the opposite - being so fidgety or restless that you have been moving around a lot more than usual: not at all 9. Thoughts that you would be better off or of hurting yourself in some way: not at all Total score: 0 Depression Screening Interpretation: Negative Depression Screening Done: Yes Source: Developed by Drs. Kit Alarcon, Sarita Bowling, Dwight Mims and colleagues, with an educational brigid from [employer] ([place]). Thrive Questionnaire Date Thrive assessed: 12/27/24 I am a: Patient What is your living situation today?: I have a steady place to live Within the past 12 months, did the food you bought not last and you didn't have the money to get more?: Never true Within the past 12 months, did you worry whether your food would run out before you got money to buy more?: Never true Do you have trouble paying for medicines?: No Do you have trouble getting transportation to medical appointments?: No Do you have trouble paying your heating and electricity bill?: No Do you have trouble taking care of your child, family member or friend?: No Do you have trouble with day-to-day activities such as bathing, preparing meals, shopping, managing finances, etc.?: No Are you currently unemployed and looking for a job?: No Are you interested in more education?: No Please select the resources that you would like help with: None Currently or been in a relationship where the following occur: No concerns reported THRIVE Score: 0 AUDIT C Alcohol Use Questionnaire (AUDIT-C) 1. How often do you have a drink containing alcohol?: Never Total Score: 0 JAK-7 AMB Questionnaire JAK-7 Date JAK - 7 assessed: 12/27/24 Feeling nervous, anxious, or on edge: 0 = Not at all Not being able to stop or control worryin = Not at all Worrying too much about different things: 0 = Not at all Trouble relaxin = Not at all Being so restless that it is hard to sit still: 0 = Not at all Becoming easily annoyed or irritable: 0 = Not at all Feeling afraid as if something awful might happen: 0 = Not at all Total JAK-7 score (0-4 normal; 5-9 mild; 10-14 moderate; 15-21 severe): 0 Source: Developed by Drs. Kit Alarcon, Sarita Bowling, Dwight Mims and colleagues, with an educational brigid from [employer] ([place]). AJK-7 Assessment Billing JAK-7 Assessment Tool: JAK-7 Assessment 67630 Review of Systems Const Denies headache(s) Eyes Denies loss of vision ENT Denies vertigo, Denies dizziness, Denies headache(s) and Denies sore throat Card Denies chest pain, Denies leg edema and Denies lightheadedness Resp Denies cough, Denies hemoptysis and Denies wheezing GI Denies abdominal pain, Denies melena, Denies constipation, Denies diarrhea and Denies vomiting Denies urinary frequency, Denies dysuria and Denies urinary urgency Musc Denies arthralgias, Denies joint swelling, Denies numbness and Denies tingling Neuro Denies Abnormal speech present, Denies behavioral changes, Denies vertigo, Denies dizziness, Denies headache(s), Denies loss of vision, Denies memory loss, Denies numbness and Denies tingling Psych Denies anxiety, Denies behavioral changes, Denies depression, Denies memory loss and Denies panic attacks Daniel/Lymph Denies easy bleeding and Denies easy bruising Aller/Immun Denies wheezing Physical exam (Primary Care) Vital Signs: Last Vital Signs Pulse 64 12/27/24 10:01 BP 120/82 12/27/24 10:01 Pulse Ox 98 12/27/24 10:01 Oxygen Delivery Method Room Air 12/27/24 10:01 BMI result Body Mass Index 30.0 Tobacco/Smoking Status: Tobacco use Status Tobacco use date assessed 12/27/24 12/27/24 10:10 Patient Tobacco Use Status Former Tobacco user 12/27/24 10:10 Tobacco use type Smokeless Tobacco 12/27/24 10:10 e-Cigarette/Vaping Use Currently Using 12/27/24 10:10 PHQ-9: PHQ-9 Score PHQ-9: Total score 0 12/27/24 10:15 Depression Screening Interpretation: Negative Thrive Assessment: Date of Thrive Assessment Date Thrive assessed 12/27/24 12/27/24 10:10 Currently or been in a relationship where the following occur: No concerns reported Const General: healthy appearing, no acute distress, alert and awake Nutritional Appearance: well nourished Orientation/consciousness: oriented to person, oriented to place and oriented to time HENMT Ears: TM's normal bilaterally General nose exam: Normal nasal mucous membranes and turbinates present Eyes Conjunctivae: conjunctivae normal Sclerae: sclerae normal Pupils: Equal, round and reactive pupils present Neck Neck: Yes no lymphadenopathy and Yes no JVD Thyroid: Thyroid normal Carotids: no bruits Resp Effort & Inspection: normal respiratory effort and not tachypneic Auscultation: no crackles, no rales, no rhonchi and no wheezes Cardio Rate: regular rate Rhythm: regular rhythm Heart sounds: no murmurs and normal S1 and S2 GI Palpation (GI): Soft to palpation, nontender, no hepatomegaly and no splenomegaly Auscultation: normal bowel sounds Skin General skin exam: no rashes or lesions noted and dry skin Neuro General: oriented to person, oriented to place and oriented to time Cranial nerves: Yes Equal, round and reactive pupils present Speech: No Abnormal speech present Gait exam (Neuro): Normal gait present Motor exam (neuro): no tremor noted Extrem Other: LEFT KNEE: IN KNEE IMMOBILIZER AT THE MOMENT. Right upper extremity: full ROM Left upper extremity: full ROM Right lower extremity: full ROM; no edema Left lower extremity: abnormal ROM and no edema Psych Mental Status: mental status grossly normal Speech and movement: Normal speech and movement present Affect: normal affect Attitude: cooperative Thought process: Normal thought process present Coding Level of Care Code Est Pt Level 4 (96121) Diagnoses Closed fracture of left tibial plateau with routine healing, subsequent encounter S82.142D Encounter type: subsequent encounter Fracture healing: with routine healing Fracture type: closed Arthralgia of right knee M25.561 Additional Codes JAK-7 Assessment Billing - JAK-7 Assessment Tool: JAK-7 Assessment 71265 ([id number]) Assessment & Plan Assessment & Plan (1) Tibial plateau fracture, left: Code(s): S82.142A - Displaced bicondylar fracture of left tibia, initial encounter for closed fracture Category: Medical Qualifiers: Encounter type: subsequent encounter Fracture healing: with routine he aling Fracture type: closed Qualified Code(s): S82.142D - Displaced bicondylar fracture of left tibia, subsequent encounter for closed fracture with routine healing Plan: Has upcoming appointment with Orthopedics though seems to be for shoulder issue. He currently in a left knee immobilizer. Given right knee supporting brace today office she does report she has physical therapy. She has using [id number] analgesics and she does have a small script for oxycodone for pain scales of 9-10. We did discuss the proper use narcotics. (2) Arthralgia of right knee: Code(s): M25.561 - Pain in right knee Category: Medical Plan: As above Orders: Orders MR knee LT wo con Today S82.142D - Displaced bicondylar fracture of left tibia, subsequent encounter for closed fracture with routine healing Lipid Panel Today I10 - Essential (primary) hypertension Medications: New diclofenac sodium 3% 1 appl topical BID 100 grams 1RF 30 days M25.561 - Pain in right knee [right knee brace with side stabilizers and patella gel pad] As directed 1 ea 0RF M25.561 - Pain in right knee Refilled oxycodone Partial Fill upon patient request. 5 mg PO DAILY PRN 4 tabs 0RF pain 4 days M47.816 - Spondylosis without myelopathy or radiculopathy, lumbar region lorazepam 0.5 mg PO DAILY PRN 7 tabs 0RF anxiety 20 days F41.1 - Generalized anxiety disorder
[2024-12-27 10:01] VITALS: BP 120/82; PULSE 64; O2SAT 98
--- OUTSIDE RECORDS SUMMARY | 2024-12-27 11:15 | XMS_ITS | Clinical Summary ---
Author Organization [facility] it Address [address] [place] [address] Care Team Providers Care Formulation Scientist Name Role Phone Unavailable Primary Care Provider Unavailabl e Social History Tobacco Use Types Packs/Day Years Used Date Smoking Tobacco: Never Assessed Comments Unknown Sex and Gender Information Value Date Recorded Sex Assigned at Not on file Legal Sex Female 6:09 PM EST Gender Identity Not on file Sexual Orientation Not on file Last Filed Vital Signs Vital Sign Reading Time Taken Comments Blood Pressure - - Pulse - - Temperature - - Respiratory Rate - - Oxygen Saturation - - Inhaled Oxygen Concentration - - Weight 66.2 kg (146 lb) 12/23/2022 3:34 PM EST Height 165.1 cm (5' 5 ) 12/23/2022 3:34 PM EST Body Mass Index 24.3 12/23/2022 3:34 PM EST Plan of Treatment Health Maintenance Due Date Last Done Comments Breast Cancer Screening 1960 Cervical Cancer Screening: P ap Smear 1981 Zoster Vaccines (2 of 2) 07/02/2020 05/07/2020 Pneumococcal Vaccine: 50+ Years (2 of 2 - PCV) 05/01/2021 05/01/2020 Colorectal Cancer Screening: Colonoscopy 09/19/2022 Depression Screening 09/19/2022 HIV Screening 09/19/2022 Hepatitis C Screening 09/19/2022 Social Influencers of Health Screening 09/19/2022 COVID-19 Vaccine (3 - 2023-2 5 season) 2024 12/20/2020, 11/22/2020 Influenza Vaccine (#1) 2024 , 08/06/2016 DTaP,Tdap,and Td Vaccines (2 - Td or Tdap) 08/14/2028 08/14/2018 RSV Immunization Patients 60 + Years Old (1 - 1-dose 75+ series) 2035 Pneumococcal Vaccine: Pediatrics (0 to 5 Years) and At-Risk Patients (6 to 64 Years) Aged Out 05/01/2020 No longer eligible b ased on patient's age to complete this topic HIB Vaccines Aged Out No longer eligi ble based on patient's age to complete this topic HPV Vaccines Aged Out No longer eligi ble based on patient's age to complete this topic Hepatitis A Vaccines Aged Out No long er eligible based on patient's age to complete this topic Hepatitis B Vaccines Aged Out No long er eligible based on patient's age to complete this topic IPV Vaccines Aged Out No longer eligi ble based on patient's age to complete this topic MMR Vaccines Aged Out No longer eligi ble based on patient's age to complete this topic Meningococcal ACWY Vaccine Aged Out N o longer eligible based on patient's age to complete this topic Meningococcal B Vacine Aged Out No lo nger eligible based on patient's age to complete this topic RSV Immunization Patients Under 20 months Aged Out No longer eligible b ased on patient's age to complete this topic Varicella Vaccines Aged Out No longer eligible based on patient's age to complete this topic
== END 2024-12-27 10:50 | disposition home or self-care (01) ==
LOC: HO.HMCH 09:58
PROVIDERS: PCP Physician Assistant; Visit Provider Physician Assistant
DX: S82.142D Displaced bicondylar fracture of left tibia, subsequent encounter for closed fracture with routine healing (principal); M25.561 Pain in right knee

== ENCOUNTER → 2024-12-27 09:57 | Outpatient (BNVA) | payer OTHER, SELFPAY | PROVIDERS: PCP Physician Assistant; Visit Provider Physician Assistant | DX: S82.142D Displaced bicondylar fracture of left tibia, subsequent encounter for closed fracture with routine healing (principal) | CPT/HCPCS: 96127; 99212 ==

== ENCOUNTER 2025-01-01 13:05 | Outpatient (AMB) | payer OTHER, SELFPAY ==
--- NOTE | 2025-01-01 13:09 | A.OFFVIS_ITS ---
Intake Visit Reasons: OV - Right RTC Arthropathy Intake Note: Teresa is a 64 year old right hand dominant female who presents today for a follow up of her right shoulder RTC arthropathy. At her last visit in September we discussed that surgical intervention was too aggressive of treatment, so she was referred for Physical Therapy. Patient reports that she is having continued pain of the right shoulder. She also reports that she is having left knee pain. On Nov 19 she was walking through the park at night during a snow storm when she slipped and fell on ice landing on the left knee. She was seen at [facility] the day of the injury. She was seen at her PCP office where she was placed in a knee immobilizer. She is using a wheelchair for ambulation. CT Scan done: IMPRESSION: 1. Nondisplaced fracture of the dorsal margin of the lateral tibial plateau. 2. Severe tricompartment osteoarthritis of the left knee. 3. Previous procedure changes from ACL grafting. 4. Large effusion with loose bodies. Allergies erythromycin base [ERYTHROMYCIN BASE] Allergy (Severe, Verified 01/01/25 13:10) ANAPHYLAXIS insulation Allergy (Unknown, Uncoded 01/01/25 13:10) unknown HPI HPI OV - Right RTC Arthropathy: Details: Teresa is a 64 year old right hand dominant female who presents today for a follow up of her right shoulder RTC arthropathy. At her last visit in September we discussed that surgical intervention was too aggressive of treatment, so she was referred for Physical Therapy. Patient reports that she is having continued pain of the right shoulder. She also reports that she is having left knee pain. On Nov 19 she was walking through the park at night during a snow storm when she slipped and fell on ice landing on the left knee. She was seen at [facility] the day of the injury. She was seen at her PCP office where she was placed in a knee immobilizer. She is using a wheelchair for ambulation. Her primary complaint today is left knee pain. [facility] Medical History RBBB (right bundle branch block with left anterior fascicular block) Hammer toe of right foot Osteoarthritis of right knee Osteoarthritis of left knee Heart attack Chest pain High blood pressure Fibromyalgia Arthritis Surgical History H/O toe surgery H/O rhinoplasty History of colon surgery History of ankle surgery H/O right knee surgery History of eye surgery Family History Father Myocardial infarction Mother Diabetes Myocardial infarction Mental health disorder Substance use disorder Sister Diabetes Social History Housing: House Alcohol intake: current Alcohol intake frequency: does not drink Patient Tobacco Use Status: Former Tobacco user Tobacco use type: Smokeless Tobacco Cigarettes Per Day: 3 e-Cigarette/Vaping Use: Currently Using Second Hand Smoke Exposure: No Substance Use Type: Marijuana service: No Current occupational status: disabled Cognitive needs: Yes Hearing needs: No Vision needs: No Physical Exam Extrem Other: No effusion no sharp tenderness to palpation. She can ambulate on her left leg with mild pain. Results Reviewed Results Reviewed: CT Scan done: IMPRESSION: 1. Nondisplaced fracture of the dorsal margin of the lateral tibial plateau. 2. Severe tricompartment osteoarthritis of the left knee. 3. Previous procedure changes from ACL grafting. 4. Large effusion with loose bodies. Assessment & Plan Assessment & Plan (1) Rotator cuff arthropathy of right shoulder: Code(s): M12.811 - Other specific arthropathies, not elsewhere classified, right shoulder Category: Medical Plan: Stable. No intervention warranted as she is able to function and has lots of other things going on. She can not walk comfortably without an assistive device so any upper extremity surgery would be difficult. (2) Arthritis of left knee: Code(s): M17.12 - Unilateral primary osteoarthritis, left knee Category: Medical Plan: She has a very small compression type fracture of the lateral tibial plateau in the setting of osteoarthritis. I do not recommend an MRI. I discussed injections but she just wants to be able to move it. For some reason she is in a knee immobilizer which I removed and she can ambulate as tolerated. She may follow up in 6-8 weeks for repeat radiographs with PA. Coding Level of Care Code Est Pt Level 3 (07940) Complex EM visit Add On G2211 Diagnoses Rotator cuff arthropathy of right shoulder M12.811 Arthritis of left knee M17.12
== END 2025-01-01 13:52 | disposition home or self-care (01) ==
LOC: HO.HOS 13:06
PROVIDERS: PCP Physician Assistant; Visit Provider Orthopaedic Surgery
DX: M12.811 Other specific arthropathies, not elsewhere classified, right shoulder (principal); M17.12 Unilateral primary osteoarthritis, left knee
CPT/HCPCS: 99213; G2211

== ENCOUNTER → 2025-01-01 13:05 | Outpatient (BNVA) | payer OTHER, SELFPAY | PROVIDERS: PCP Physician Assistant; Visit Provider Orthopaedic Surgery | DX: M12.811 Other specific arthropathies, not elsewhere classified, right shoulder (principal); M17.12 Unilateral primary osteoarthritis, left knee | CPT/HCPCS: 99212 ==

== ENCOUNTER 2025-04-18 15:41 | Outpatient (AMB) | payer MEDICARE, MEDICAID, SELFPAY ==
--- OUTSIDE RECORDS SUMMARY | 2025-04-18 15:46 | XMS_ITS | Clinical Summary ---
Author Organization [facility] it Address [address] [place] [address] Care Team Providers Care Cna Name Role Phone Unavailable Primary Care Provider [...] Cancer Screening: Colonoscopy 09/19/2022 Depression Screening 09/19/2022 Hepatitis C Screening 09/19/2022 Osteoporosis Screening (Bone Density Screening) 09/19/2022 Social Influencers of Health Screening 09/19/2022 COVID-19 Vaccine (3 - 2023-2 5 season) 2024 12/20/2020, 11/22/2020 Falls Risk Assessment 2025 Influenza Vaccine (Season Ended) 2025 06/22/2020, 08/06/2016 DTaP,Tdap,and Td Vaccines (2 - Td or Tdap) 08/14/2028 08/14/2018 RSV Immunization Adult Patients (1 - 1-dose 75+ series) 2035 Pneumococcal [...] age to complete this topic Meningococcal B Vaccine Aged Out No l onger eligible based on patient's age to complete this topic RSV Immunization Patients Under 20 months Aged Out No longer eligible b ased on patient's age to complete this topic Varicella Vaccines Aged Out No longer eligible based on patient's age to complete this topic
--- NOTE | 2025-04-18 15:48 | MHC.PC.OV ---
Vital Signs 04/18/25 15:50 Height 5 ft 1 in Weight 147 lb 6 oz BMI 27.8 BP 142/82 H Blood Pressure Location Lt brachial Position Sitting Pulse 90 Pulse Source Pulse Oximeter Temp 97.5 F Temp Source Temporal Artery Scan Pulse Oximetry (%) 98 Oxygen Delivery Method Room Air Intake Visit Reasons: pain on her left side Skein Bander Required: No Accompanied by: Self / Same As Patient Allergies erythromycin base (ERYTHROMYCIN BASE) Allergy (Severe, Verified 04/18/25 16:18) ANAPHYLAXIS insulation Allergy (Unknown, Uncoded 04/18/25 16:18) unknown Medication List - Last Reconciled 04/18/25 by Corbin Gross PA-C acetaminophen 500 mg PO Q6H PRN 30 days alum-mag hydroxide-simeth 400-400-40 mg/5 mL (Maalox Maximum Strength) 10 mL PO TID PRN amitriptyline 10 mg PO BEDTIME ascorbic acid (vitamin C) (Vitamin C) 500 mg PO DAILY 90 days cane As directed cane As directed diclofenac sodium 3% 1 appl topical BID 30 days docusate sodium (Colace) 100 mg PO DAILY PRN 15 days epinephrine (EpiPen 2-Eric) 0.3 mg (0.3 mL) IM Q4H PRN 30 days gabapentin 300 mg PO TID 30 days lisinopril 10 mg PO DAILY lorazepam 0.5 mg PO DAILY PRN 20 days menthol 10.5% (Biofreeze (menthol)) 1 spray topical TID PRN methocarbamol 750 mg PO BEDTIME 30 days nitroglycerin 0.4 mg sublingual Q5M PRN 7 days omeprazole 20 mg PO DAILY@0630 oxycodone 5 mg PO DAILY PRN 4 days [right knee brace with side stabilizers and patella gel pad As directed] Shower Chair As directed Ventolin HFA 90 mcg/actuation (albuterol sulfate) 2 puffs inhalation Q6H PRN 30 days NS walker (Ultra-Light Rollator misc) As directed Tobacco use date assessed: 12/27/24 Dental Screening Dental Screen Date: 12/27/24 HPI pain on her left side HPI Details The patient is a 65-year-old female presenting with severe pain and functional limitations due to a cervical spine disorder. The patient reports experiencing excruciating pain in the neck, shoulder, and arm, which has been ongoing for several months. She describes the pain as feeling like breaking glass and notes that it is affecting her ability to perform daily activities, including moving and self-care. The patient has a history of moderate spinal stenosis, identified on a CT scan of the neck in November. She has been hospitalized previously for similar symptoms, with no definitive diagnosis reached despite multiple evaluations. The patient has not been taking her prescribed medications, including antihypertensives, due to difficulties in obtaining them. The patient also reports significant mental health challenges, which have been exacerbated by her current physical condition. 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 [facility] Medical History RBBB (right bundle branch block with left anterior fascicular block) Hammer toe of right foot Osteoarthritis of right knee Osteoarthritis of left knee Heart attack Chest pain High blood pressure Fibromyalgia Arthritis Surgical History H/O toe surgery H/O rhinoplasty History of colon surgery History of ankle surgery H/O right knee surgery History of eye surgery Family History Father Myocardial infarction Mother Diabetes Myocardial infarction Mental health disorder Substance use disorder Sister Diabetes Social History Housing: House Alcohol intake: current Alcohol intake frequency: does not drink Patient Tobacco Use Status: Former Tobacco user Tobacco use type: Smokeless Tobacco Cigarettes Per Day: 3 e-Cigarette/Vaping Use: Currently Using Second Hand Smoke Exposure: No Substance Use Type: Marijuana service: No Current occupational status: disabled Cognitive needs: Yes Hearing needs: No Vision needs: No Questionnaire Thrive Questionnaire Date Thrive assessed: 04/18/25 JAK-7 AMB Questionnaire JAK-7 Date JAK - 7 assessed: 04/18/25 Source: Developed by Drs. Kit Alarcon, Sarita Bowling, Dwight Mims and colleagues, with an educational brigid from [employer]. Review of Systems Const Denies headache(s) Eyes Denies loss of vision ENT Denies vertigo, Denies dizziness, Denies headache(s), Reports neck pain and Denies sore throat Card Denies chest pain, Denies leg edema and Denies lightheadedness Resp Denies cough, Denies hemoptysis and Denies wheezing GI Denies abdominal pain, Denies melena, Denies constipation, Denies diarrhea and Denies vomiting Denies urinary frequency, Denies dysuria and Denies urinary urgency Musc Details: + neck pain Denies arthralgias, Denies joint swelling, Reports neck pain, Denies numbness and Denies tingling Neuro Denies Abnormal speech present, Denies behavioral changes, Denies vertigo, Denies dizziness, Denies headache(s), Denies loss of vision, Denies memory loss, Denies numbness and Denies tingling Psych Denies anxiety, Denies behavioral changes, Denies depression, Denies memory loss and Denies panic attacks Daniel/Lymph Denies easy bleeding and Denies easy bruising Aller/Immun Denies wheezing Physical exam (Primary Care) Vital Signs: Last Vital Signs Temp 97.5 F 04/18/25 15:50 Pulse 90 04/18/25 15:50 BP 142/82 H 04/18/25 15:50 Pulse Ox 98 04/18/25 15:50 Oxygen Delivery Method Room Air 04/18/25 15:50 BMI result Body Mass Index 27.8 Tobacco/Smoking Status: Tobacco use Status Tobacco use date assessed 12/27/24 04/18/25 15:56 Patient Tobacco Use Status Former Tobacco user 04/18/25 15:56 Tobacco use type Smokeless Tobacco 04/18/25 15:56 e-Cigarette/Vaping Use Currently Using 04/18/25 15:56 Thrive Assessment: Date of Thrive Assessment Date Thrive assessed 04/18/25 04/18/25 15:56 Const General: healthy appearing, no acute distress, alert and awake Nutritional Appearance: well nourished Orientation/consciousness: oriented to person, oriented to place and oriented to time HENMT Ears: TM's normal bilaterally General nose exam: Normal nasal mucous membranes and turbinates present Eyes Conjunctivae: conjunctivae normal Sclerae: sclerae normal Pupils: Equal, round and reactive pupils present Neck Neck: Yes no lymphadenopathy and Yes no JVD Thyroid: Thyroid normal Carotids: no bruits Neck images:  1. TENDERNESS TO PALPATION OVER ENTIRE NECK, HAS LIMITED RANGE OF MOTION ON PHYSICAL EXAM TODAY. Resp Effort & Inspection: normal respiratory effort and not tachypneic Auscultation: no crackles, no rales, no rhonchi and no wheezes Cardio Rate: regular rate Rhythm: regular rhythm Heart sounds: no murmurs and normal S1 and S2 GI Palpation (GI): Soft to palpation, nontender, no hepatomegaly and no splenomegaly Auscultation: normal bowel sounds Skin General skin exam: no rashes or lesions noted and dry skin Neuro General: oriented to person, oriented to place and oriented to time Cranial nerves: Yes Equal, round and reactive pupils present Speech: No Abnormal speech present Gait exam (Neuro): Normal gait present Motor exam (neuro): no tremor noted Extrem Right upper extremity: full ROM Left upper extremity: full ROM Right lower extremity: full ROM; no edema Left lower extremity: full ROM; no edema Psych Mental Status: mental status grossly normal Speech and movement: Normal speech and movement present Affect: normal affect Attitude: cooperative Thought process: Normal thought process present Coding Level of Care Code Est Pt Level 4 (72937) Diagnoses Radiculopathy of cervical spine M54.12 Assessment & Plan Assessment & Plan (1) Radiculopathy of cervical spine: Code(s): M54.12 - Radiculopathy, cervical region Category: Medical Plan: The patient is experiencing severe pain and functional limitations due to a cervical spine disorder, potentially related to moderate spinal stenosis. A plan to manage this condition includes prescribing stronger muscle relaxer and considering imaging studies such as an MRI to further evaluate the cervical spine. She did have an CT scan of her cervical spine in November of 2024 that did show cervical spine disc disorder. Her current presentation here in office is concerning as she is in tears reporting 10 on 10 pain seems to have a bit of neck stiffness which could be related to the pain and muscle spasm though can not rule out a meningitis picture here. We did discuss the possibility of meningitis picture and should be evaluated at the ER and she agrees and will go after her court date tomorrow Medications: New carisoprodol (Soma) 350 mg PO BEDTIME 5 tabs 0RF 5 days M54.12 - Radiculopathy, cervical region Refilled gabapentin 300 mg PO TID 90 caps 3RF 30 days M25.561 - Pain in right knee lisinopril 10 mg PO DAILY 90 tabs 1RF I10 - Essential (primary) hypertension
[2025-04-18 15:50] VITALS: BP 142/82; PULSE 90; TEMP 36.4; O2SAT 98; BMI 27.8
== END 2025-04-18 16:50 | disposition home or self-care (01) ==
LOC: HO.HMCH 15:41
PROVIDERS: PCP Physician Assistant; Visit Provider Physician Assistant
DX: M54.12 Radiculopathy, cervical region (principal)

== ENCOUNTER → 2025-04-18 15:41 | Outpatient (BNVA) | payer MEDICARE, MEDICAID, SELFPAY | PROVIDERS: PCP Physician Assistant; Visit Provider Physician Assistant | DX: M54.12 Radiculopathy, cervical region (principal) | CPT/HCPCS: 99212 ==

== ENCOUNTER 2025-05-07 09:03 | Outpatient (AMB) | payer OTHER, SELFPAY ==
--- NOTE | 2025-05-07 09:05 | MHC.PC.OV ---
Vital Signs 05/07/25 09:06 Height 5 ft 1 in Weight 151 lb 6 oz BMI 28.6 BP 128/70 Blood Pressure Location Lt brachial Position Sitting Pulse 73 Pulse Source Pulse Oximeter Temp 96.9 F Temp Source Temporal Artery Scan Pulse Oximetry (%) 97 Oxygen Delivery Method Room Air Intake Visit Reasons: Annual Exam Intake Note: Patient is here for hospital discharge follow up. Patient was discharged from [facility] on 04/25/25. Dry Box Operator Required: No Security Researcher: Not Required per policy Accompanied by: Self / Same As Patient Allergies erythromycin base (ERYTHROMYCIN BASE) Allergy (Severe, Verified 05/07/25 09:26) ANAPHYLAXIS insulation Allergy (Unknown, Uncoded 05/07/25 09:26) unknown Medication List - Last Reconciled 05/07/25 by Corbin Gross PA-C acetaminophen 500 mg PO Q6H PRN 30 days alum-mag hydroxide-simeth 400-400-40 mg/5 mL (Maalox Maximum Strength) 10 mL PO TID PRN amitriptyline 10 mg PO DAILY ascorbic acid (vitamin C) (Vitamin C) 500 mg PO DAILY 90 days cane As directed cane As directed carisoprodol (Soma) 350 mg PO BEDTIME 5 days cholecalciferol (vitamin D3) 125 mcg PO DAILY diclofenac sodium 3% 1 appl topical BID 30 days docusate sodium (Colace) 100 mg PO DAILY PRN 15 days duloxetine 30 mg PO BID epinephrine (EpiPen 2-Eric) 0.3 mg (0.3 mL) IM Q4H PRN 30 days lisinopril 10 mg PO DAILY lorazepam 0.5 mg PO DAILY PRN 20 days menthol 10.5% (Biofreeze (menthol)) 1 spray topical TID PRN nitroglycerin 0.4 mg sublingual Q5M PRN 7 days omeprazole 20 mg PO DAILY@0630 oxycodone 5 mg PO DAILY PRN 4 days [right knee brace with side stabilizers and patella gel pad As directed] Shower Chair As directed Ventolin HFA 90 mcg/actuation (albuterol sulfate) 2 puffs inhalation Q6H PRN 30 days NS walker (Ultra-Light Rollator misc) As directed Tobacco use date assessed: 05/07/25 Fall risk assessment: No Falls in past year Last assessed Fall Risk: 05/07/25 Dental Screening Dental Screen Date: 12/27/24 [facility] Annual Exam HPI Details Patient is a 65 female here today for a hospital discharge follow-up Patient recently admitted to [facility] for complaints of all over pain. She did not undergo ACS workup and a CT of abdomen. ACS workup without any infarct or ischemia noted. Her pain was relieved some with IV narcotics. She did do a CT of the abdomen and pelvis that did not show any significant abnormality though her urinalysis did show UTI to which she was given antibiotics for this. She was found to have fairly severe constipation and was given enema which did produce bowel movement. Unclear etiology to patient's constipation though could be related to pain medication use. 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 [facility] Medical History RBBB (right bundle branch block with left anterior fascicular block) Hammer toe of right foot Osteoarthritis of right knee Osteoarthritis of left knee Heart attack Chest pain High blood pressure Fibromyalgia Arthritis Surgical History H/O toe surgery H/O rhinoplasty History of colon surgery History of ankle surgery H/O right knee surgery History of eye surgery Family History Father Myocardial infarction Mother Diabetes Myocardial infarction Mental health disorder Substance use disorder Sister Diabetes Social History Housing: House Alcohol intake: current Alcohol intake frequency: does not drink Patient Tobacco Use Status: Former Tobacco user Tobacco use type: Smokeless Tobacco Cigarettes Per Day: 3 e-Cigarette/Vaping Use: Currently Using Second Hand Smoke Exposure: Yes Substance Use Type: Marijuana service: No Current occupational status: disabled Cognitive needs: Yes Hearing needs: No Vision needs: No Questionnaire Thrive Questionnaire Date Thrive assessed: 04/18/25 JAK-7 AMB Questionnaire JAK-7 Date JAK - 7 assessed: 04/18/25 Source: Developed by Drs. Kit Alarcon, Sarita Bowling, Dwight Mims and colleagues, with an educational brigid from [employer]. Review of Systems Const Denies headache(s) Eyes Denies loss of vision ENT Denies vertigo, Denies dizziness, Denies headache(s) and Denies sore throat Card Denies chest pain, Denies leg edema and Denies lightheadedness Resp Denies cough, Denies hemoptysis and Denies wheezing GI Denies abdominal pain, Denies melena, Denies constipation, Denies diarrhea and Denies vomiting Denies urinary frequency, Denies dysuria and Denies urinary urgency Musc Denies arthralgias, Denies joint swelling, Denies numbness and Denies tingling Neuro Denies Abnormal speech present, Denies behavioral changes, Denies vertigo, Denies dizziness, Denies headache(s), Denies loss of vision, Denies memory loss, Denies numbness and Denies tingling Psych Denies anxiety, Denies behavioral changes, Denies depression, Denies memory loss and Denies panic attacks Daniel/Lymph Denies easy bleeding and Denies easy bruising Aller/Immun Denies wheezing Physical exam (Primary Care) Vital Signs: Last Vital Signs Temp 96.9 F 05/07/25 09:06 Pulse 73 05/07/25 09:06 BP 128/70 05/07/25 09:06 Pulse Ox 97 05/07/25 09:06 Oxygen Delivery Method Room Air 05/07/25 09:06 BMI result Body Mass Index 28.6 Tobacco/Smoking Status: Tobacco use Status Tobacco use date assessed 05/07/25 05/07/25 09:09 Patient Tobacco Use Status Former Tobacco user 05/07/25 09:09 Tobacco use type Smokeless Tobacco 05/07/25 09:09 e-Cigarette/Vaping Use Currently Using 05/07/25 09:09 Thrive Assessment: Date of Thrive Assessment Date Thrive assessed 04/18/25 05/07/25 09:09 Const General: healthy appearing, no acute distress, alert and awake Nutritional Appearance: well nourished Orientation/consciousness: oriented to person, oriented to place and oriented to time HENMT Ears: TM's normal bilaterally General nose exam: Normal nasal mucous membranes and turbinates present Eyes Conjunctivae: conjunctivae normal Sclerae: sclerae normal Pupils: Equal, round and reactive pupils present Neck Neck: Yes no lymphadenopathy and Yes no JVD Thyroid: Thyroid normal Carotids: no bruits Resp Effort & Inspection: normal respiratory effort and not tachypneic Auscultation: no crackles, no rales, no rhonchi and no wheezes Cardio Rate: regular rate Rhythm: regular rhythm Heart sounds: no murmurs and normal S1 and S2 GI Palpation (GI): Soft to palpation, nontender, no hepatomegaly and no splenomegaly Auscultation: normal bowel sounds Skin General skin exam: no rashes or lesions noted and dry skin Neuro General: oriented to person, oriented to place and oriented to time Cranial nerves: Yes Equal, round and reactive pupils present Speech: No Abnormal speech present Gait exam (Neuro): Normal gait present Motor exam (neuro): no tremor noted Extrem Right upper extremity: full ROM Left upper extremity: full ROM Right lower extremity: full ROM; no edema Left lower extremity: full ROM; no edema Psych Mental Status: mental status grossly normal Speech and movement: Normal speech and movement present Affect: normal affect Attitude: cooperative Thought process: Normal thought process present Coding Level of Care Code Est Pt Level 4 (04624) Diagnoses Hospital discharge follow-up Z09 UTI (urinary tract infection) N30.01 Hematuria presence: with hematuria Urinary tract infection type: acute cystitis Drug-induced constipation K59.03 Constipation type: drug induced constipation Skin lesions L98.9 MDD (major depressive disorder), recurrent episode, moderate F33.1 Assessment & Plan Assessment & Plan (1) Hospital discharge follow-up: Code(s): Z09 - Encounter for follow-up examination after completed treatment for conditions other than malignant neoplasm Category: Medical Plan: As per HPI (2) UTI (urinary tract infection): Code(s): N39.0 - Urinary tract infection, site not specified Category: Medical Qualifiers: Hematuria presence: with hematuria Urinary tract infection type: acute cystitis Qualified Code(s): N30.01 - Acute cystitis with hematuria Plan: Patient treated for UTI recently at [facility]. Will send for repeat urinalysis to ensure resolution of her UTI Seems to be in more stable condition today in office. (3) Constipation: Code(s): K59.00 - Constipation, unspecified Category: Medical Qualifiers: Constipation type: drug induced constipation Qualified Code(s): K59.03 - Drug induced constipation Plan: Advised on increasing fluid intake in using Colace more regularly to help reduce constipation. Will send for ultrasound of the abdomen evaluate for intra-abdominal pathology (4) Skin lesions: Code(s): L98.9 - Disorder of the skin and subcutaneous tissue, unspecified Category: Medical Plan: Would like to see Dermatology due to skin lesions noted over arms and legs. (5) MDD (major depressive disorder), recurrent episode, moderate: Code(s): F33.1 - Major depressive disorder, recurrent, moderate Category: Medical Plan: Patient does seem to be suffering with depression that stem from grief due to loss of her brother recently and her daughter. She is interested in mental health therapy Orders: Orders UA CC w/rflx Micro + Cult Today N30.01 - Acute cystitis with hematuria, R30.0 - Dysuria Comprehensive Met. Panel Today N30.01 - Acute cystitis with hematuria MM screening mammo BI Today Z12.31 - Encounter for screening mammogram for malignant neoplasm of breast US abdomen complete Today R10.9 - Unspecified abdominal pain Complete Blood Count no Diff Today N30.01 - Acute cystitis with hematuria Referrals Counseling Referral F33.1 - Major depressive disorder, recurrent, moderate Dermatology Referral L98.9 - Disorder of the skin and subcutaneous tissue, unspecified Medications: New duloxetine 30 mg PO BID 60 caps 4RF 30 days M54.12 - Radiculopathy, cervical region Changed From docusate sodium (Colace) 100 mg PO DAILY 15 days PRN 15 caps 1RF constipation K59.03 - Drug induced constipation To docusate sodium (Colace) 100 mg PO DAILY 30 caps 2RF constipation 30 days K59.03 - Drug induced constipation Refilled carisoprodol (Soma) 350 mg PO BEDTIME 5 tabs 0RF 5 days M54.12 - Radiculopathy, cervical region lisinopril 10 mg PO DAILY 90 tabs 1RF I10 - Essential (primary) hypertension lorazepam 0.5 mg PO DAILY PRN 7 tabs 0RF anxiety 20 days F41.1 - Generalized anxiety disorder
[2025-05-07 09:06] VITALS: BP 128/70; PULSE 73; TEMP 36.1; O2SAT 97; BMI 28.6
--- OUTSIDE RECORDS SUMMARY | 2025-05-07 09:17 | XMS_ITS | Encounter Summary ---
Author Organization [facility] Address [address] [place] [address] Phone Care Team Providers Care Ripening Room Hand Name Role Phone Jacque Lin NP Primary Care Provider [phone] Lauri Simmons MD Primary Care Provid er Encounter Details Date Type Department Care Team (Latest Contact Info) Description 05/09/2019 Transcribe Orders [facility] [address] [place] [address] Gali Edwards MD [address] [place] [address] [email or web address] Chest pain, unspecified type (Primary Dx); LBBB (left bundle branch block) Social History Tobacco Use Types Packs/Day Years Used Date Smoking Tobacco: Some Days Smokeless Tobacco: Never Alcohol Use Standard Drinks/Week Comments Yes 0 (1 standard drink = 0.6 oz pur e alcohol) occasional Comments Unknown Sex and Gender Information Value Date Recorded Sex Assigned at Female 11/17/2018 9:08 PM EST Legal Sex Female 7:43 PM EST Gender Identity Female 11/17/2018 9:08 PM EST Sexual Orientation Straight 11/17/2018 9: 08 PM EST documented as of this encounter Plan of Treatment Not on file documented as of this encounter Visit Diagnoses Diagnosis Chest pain, unspecified type- Primary LBBB (left bundle branch block) Other left bundle branch block documented in this encounter Care Teams Ripening Room Hand Relationship Specialty Start Date End Date Jacque Lin NP [address] [place] [address] [address] [place] [address] PCP - General Family Medicine 11/17/18 10/15/21 Lauri Simmons MD [address] [place] [address] [place] [address] PCP - General Internal Medicine 10/16/21 documented as of this encounter Additional Source Comments The information contained in this document represents components of the legal health record. It is not the complete legal health record.[facility]
--- OUTSIDE RECORDS SUMMARY | 2025-05-07 09:17 | XMS_ITS | Clinical Summary ---
Author Organization [facility] it Address [address] [place] [address] Care Team Providers Care Open Claims Representative Name Role Phone Unavailable Primary Care Provider [...] 05/01/2021 05/01/2020 Colorectal Cancer Screening: Colonoscopy 09/19/2022 Hepatitis C Screening 09/19/2022 Osteoporosis Screening (Bone Density Screening) 09/19/2022 Social Influencers of Health Screening 09/19/2022 COVID-19 Vaccine (3 - 2023-2 5 season) 2024 12/20/2020, 11/22/2020 Depression Screening 10/18/2024 Falls Risk Assessment 2025 Influenza Vaccine (#1) 2025 0, 08/06/2016 DTaP,Tdap,and Td Vaccines (2 - Td or Tdap) 08/14/2028 08/14/2018 RSV Immunization Adult Patients (1 - 1-dose 75+ series) 2035 HIB Vaccines Aged Out No longer eligi [...]
== END 2025-05-07 10:07 | disposition home or self-care (01) ==
PROVIDERS: PCP Physician Assistant; Visit Provider Physician Assistant
DX: N30.01 Acute cystitis with hematuria (principal); F33.1 Major depressive disorder, recurrent, moderate; Z09 Encounter for follow-up examination after completed treatment for conditions other than malignant neoplasm; K59.03 Drug induced constipation; L98.9 Disorder of the skin and subcutaneous tissue, unspecified

== ENCOUNTER → 2025-05-07 09:03 | Outpatient (BNVA) | payer MEDICARE, MEDICAID, SELFPAY | PROVIDERS: PCP Physician Assistant; Visit Provider Physician Assistant | DX: Z09 Encounter for follow-up examination after completed treatment for conditions other than malignant neoplasm (principal); N30.01 Acute cystitis with hematuria; K59.03 Drug induced constipation; L98.9 Disorder of the skin and subcutaneous tissue, unspecified; F33.1 Major depressive disorder, recurrent, moderate | CPT/HCPCS: 99212 ==

== ENCOUNTER → 2025-06-04 23:59 | Outpatient (BNV) | payer MEDICARE, MEDICAID, SELFPAY | PROVIDERS: PCP Physician Assistant; Visit Provider Physician Assistant | DX: M25.462 Effusion, left knee (principal); I10 Essential (primary) hypertension; M79.7 Fibromyalgia | CPT/HCPCS: G0179 ==

== ENCOUNTER → 2025-06-05 23:59 | Outpatient (BNV) | payer MEDICARE, MEDICAID, SELFPAY | PROVIDERS: PCP Physician Assistant; Visit Provider Physician Assistant | DX: M25.462 Effusion, left knee (principal); I10 Essential (primary) hypertension | CPT/HCPCS: G0179 ==

== ENCOUNTER 2025-07-03 14:33 | Outpatient (AMB) | payer MEDICARE, MEDICAID, SELFPAY ==
--- NOTE | 2025-07-03 14:41 | MHC.PC.OV ---
Vital Signs 07/03/25 14:42 Height 5 ft 1 in Weight 160 lb 4 oz BMI 30.3 BP 112/78 Blood Pressure Location Lt brachial Position Sitting Pulse 72 Pulse Source Pulse Oximeter Temp 97.1 F Temp Source Temporal Artery Scan Pulse Oximetry (%) 98 Oxygen Delivery Method Room Air Intake Visit Reasons: [facility] 06/25 Intake Note: Patient is here to follow-up after a visit the emergency department at [facility] on 06/25/25 Telegraphic Typewriter Installer Required: No Interior Wirer: Not Required per policy Accompanied by: Self / Same As Patient Allergies erythromycin base (ERYTHROMYCIN BASE) Allergy (Severe, Verified 07/03/25 15:22) ANAPHYLAXIS insulation Allergy (Unknown, Uncoded 07/03/25 15:22) unknown Medication List - Last Reconciled 07/03/25 by Corbin Gross PA-C acetaminophen 500 mg PO Q6H PRN 30 days alum-mag hydroxide-simeth 400-400-40 mg/5 mL (Maalox Maximum Strength) 10 mL PO TID PRN ascorbic acid (vitamin C) (Vitamin C) 500 mg PO DAILY 90 days cane As directed cane As directed carisoprodol (Soma) 350 mg PO BEDTIME 5 days cholecalciferol (vitamin D3) 125 mcg PO DAILY diclofenac sodium 3% 1 appl topical BID 30 days docusate sodium (Colace) 100 mg PO DAILY 30 days duloxetine 30 mg PO BID 30 days epinephrine (EpiPen 2-Eric) 0.3 mg (0.3 mL) IM Q4H PRN 30 days gabapentin 300 mg PO TID 30 days lisinopril 10 mg PO DAILY lorazepam 0.5 mg PO DAILY PRN 20 days menthol 10.5% (Biofreeze (menthol)) 1 spray topical TID PRN nitroglycerin 0.4 mg sublingual Q5M PRN 7 days omeprazole 20 mg PO DAILY@0630 oxycodone 5 mg PO DAILY PRN 4 days [right knee brace with side stabilizers and patella gel pad As directed] Shower Chair As directed Ventolin HFA 90 mcg/actuation (albuterol sulfate) 2 puffs inhalation Q6H PRN 30 days NS walker (Ultra-Light Rollator misc) As directed Tobacco use date assessed: 07/03/25 Fall risk assessment: No Falls in past year Last assessed Fall Risk: 07/03/25 Dental Screening Dental Screen Date: 12/27/24 H[place] [facility] [place] Details Patient is a 65-year-old female here today for a [facility] Medical ER visit. Patient recently seen at the [facility] ER and was found to have urinary retention. A Adams catheter has been placed. She is followed up with Urology outpatient had her Adams catheter removed. She has been urinating fairly well on her own. She is still concerned as she has a bit of pain while urinating. Today in office urinalysis does show trace blood. Of note she was also referred to a tile fitter for ? Calcium issue. Unclear if this was related to high urinary calcium. She reports she needs a referral to Nephrology. .. History right bundle-branch block/ hypertension: She does report following up with multimedia artist in [place] and underwent cardiac testing. Will try to receive records of this.. For now will continue her current dose of lisinopril for blood pressure control his blood pressure today stable. [facility] Medical History RBBB (right bundle branch block with left anterior fascicular block) Hammer toe of right foot Osteoarthritis of right knee Osteoarthritis of left knee Heart attack Chest pain High blood pressure Fibromyalgia Arthritis Surgical History H/O toe surgery H/O rhinoplasty History of colon surgery History of ankle surgery H/O right knee surgery History of eye surgery Family History Father Myocardial infarction Mother Diabetes Myocardial infarction Mental health disorder Substance use disorder Sister Diabetes Social History Housing: House Alcohol intake: current Alcohol intake frequency: does not drink Patient Tobacco Use Status: Former Tobacco user Tobacco use type: Smokeless Tobacco Cigarettes Per Day: 3 e-Cigarette/Vaping Use: Currently Using Second Hand Smoke Exposure: Yes Substance Use Type: Marijuana service: No Current occupational status: disabled Cognitive needs: Yes Hearing needs: No Vision needs: No Questionnaire PHQ-9 Over the last 2 weeks, how often have you been bothered by any of the following problems? 1. Little interest or pleasure in doing things: not at all 2. Feeling down, depressed, or hopeless: not at all 3. Trouble falling or staying asleep, or sleeping too much: not at all 4. Feeling tired or having little energy: not at all 5. Poor appetite or overeating: not at all 6. Feeling bad about yourself - or that you are a failure or have let yourself or your family down: not at all 7. Trouble concentrating on things, such as reading the newspaper or watching television: not at all 8. Moving or speaking so slowly that other people could have noticed. Or the opposite - being so fidgety or restless that you have been moving around a lot more than usual: not at all 9. Thoughts that you would be better off or of hurting yourself in some way: not at all Total score: 0 Depression Screening Interpretation: Negative Depression Screening Done: Yes 27036 - PHQ-9 Billing: Yes Source: Developed by Drs. Kit Alarcon, Sarita Bowling, Dwight Mims and colleagues, with an educational brigid from [employer]. Thrive Questionnaire Date Thrive assessed: 04/18/25 I am a: Patient What is your living situation today?: I have a steady place to live Within the past 12 months, did the food you bought not last and you didn't have the money to get more?: Never true Within the past 12 months, did you worry whether your food would run out before you got money to buy more?: Never true Do you have trouble paying for medicines?: No Do you have trouble getting transportation to medical appointments?: No Do you have trouble paying your heating and electricity bill?: No Do you have trouble taking care of your child, family member or friend?: No Do you have trouble with day-to-day activities such as bathing, preparing meals, shopping, managing finances, etc.?: No Are you currently unemployed and looking for a job?: No Are you interested in more education?: No Please select the resources that you would like help with: None Currently or been in a relationship where the following occur: No concerns reported THRIVE Score: 0 AUDIT C Alcohol Use Questionnaire (AUDIT-C) 1. How often do you have a drink containing alcohol?: Never Total Score: 0 JAK-7 AMB Questionnaire JAK-7 Date JAK - 7 assessed: 04/18/25 Feeling nervous, anxious, or on edge: 0 = Not at all Not being able to stop or control worryin = Not at all Worrying too much about different things: 0 = Not at all Trouble relaxin = Not at all Being so restless that it is hard to sit still: 0 = Not at all Becoming easily annoyed or irritable: 0 = Not at all Feeling afraid as if something awful might happen: 0 = Not at all Total JAK-7 score (0-4 normal; 5-9 mild; 10-14 moderate; 15-21 severe): 0 Source: Developed by Drs. Kit Alarcon, Sarita Bowling, Dwight Mims and colleagues, with an educational brigid from [employer]. Review of Systems Const Denies headache(s) Eyes Denies loss of vision ENT Denies vertigo, Denies dizziness, Denies headache(s) and Denies sore throat Card Denies chest pain, Denies leg edema and Denies lightheadedness Resp Denies cough, Denies hemoptysis and Denies wheezing GI Denies abdominal pain, Denies melena, Denies constipation, Denies diarrhea and Denies vomiting Denies urinary frequency, Reports dysuria, Reports urinary incontinence and Denies urinary urgency Musc Denies arthralgias, Denies joint swelling, Denies numbness and Denies tingling Neuro Denies Abnormal speech present, Denies behavioral changes, Denies vertigo, Denies dizziness, Denies headache(s), Denies loss of vision, Denies memory loss, Denies numbness and Denies tingling Psych Denies anxiety, Denies behavioral changes, Denies depression, Denies memory loss and Denies panic attacks Daniel/Lymph Denies easy bleeding and Denies easy bruising Aller/Immun Denies wheezing Physical exam (Primary Care) Vital Signs: Last Vital Signs Temp 97.1 F 07/03/25 14:42 Pulse 72 07/03/25 14:42 BP 112/78 07/03/25 14:42 Pulse Ox 98 07/03/25 14:42 Oxygen Delivery Method Room Air 07/03/25 14:42 BMI result Body Mass Index 30.3 Tobacco/Smoking Status: Tobacco use Status Tobacco use date assessed 07/03/25 07/03/25 15:00 Patient Tobacco Use Status Former Tobacco user 07/03/25 15:00 Tobacco use type Smokeless Tobacco 07/03/25 15:00 e-Cigarette/Vaping Use Currently Using 07/03/25 15:00 PHQ-9: PHQ-9 Score PHQ-9: Total score 0 07/03/25 16:04 Depression Screening Interpretation: Negative Thrive Assessment: Date of Thrive Assessment Date Thrive assessed 04/18/25 07/03/25 15:00 Currently or been in a relationship where the following occur: No concerns reported Const General: healthy appearing, no acute distress, alert and awake Nutritional Appearance: well nourished Orientation/consciousness: oriented to person, oriented to place and oriented to time HENMT Ears: TM's normal bilaterally General nose exam: Normal nasal mucous membranes and turbinates present Eyes Conjunctivae: conjunctivae normal Sclerae: sclerae normal Pupils: Equal, round and reactive pupils present Neck Neck: Yes no lymphadenopathy and Yes no JVD Thyroid: Thyroid normal Carotids: no bruits Resp Effort & Inspection: normal respiratory effort and not tachypneic Auscultation: no crackles, no rales, no rhonchi and no wheezes Cardio Rate: regular rate Rhythm: regular rhythm Heart sounds: no murmurs and normal S1 and S2 GI Palpation (GI): Soft to palpation, nontender, no hepatomegaly and no splenomegaly Auscultation: normal bowel sounds Skin General skin exam: no rashes or lesions noted and dry skin Neuro General: oriented to person, oriented to place and oriented to time Cranial nerves: Yes Equal, round and reactive pupils present Speech: No Abnormal speech present Gait exam (Neuro): Normal gait present Motor exam (neuro): no tremor noted Extrem Right upper extremity: full ROM Left upper extremity: full ROM Right lower extremity: full ROM; no edema Left lower extremity: full ROM; no edema Psych Mental Status: mental status grossly normal Speech and movement: Normal speech and movement present Affect: normal affect Attitude: cooperative Thought process: Normal thought process present Results AMB Urinalysis, Automated UA Leukoctes 1 Rebecca/uL Last Edit by NELLI Kline on 07/03/25 16:05 UA Nitrite Negative Last Edit by NELLI Kline on 07/03/25 16:05 UA Urobilinogen 0 mg/dL Last Edit by Iqra Jones A on 07/03/25 16:05 UA Protein 0 mg/dL Last Edit by Iqra Jones A on 07/03/25 16:05 UA pH 6.0 Last Edit by Iqra Jones, RMA on 07/03/25 16:05 UA Blood 1 Griffin/uL Last Edit by Iqra Jones, A on 07/03/25 16:05 UA Specific [place] 1.010 Last Edit by Iqra Jones, RMA on 07/03/25 16:05 UA Ketone Negative Last Edit by Iqra Jones, A on 07/03/25 16:05 UA Bilirubin 0 mg/dL Last Edit by Iqra Jones A on 07/03/25 16:05 UA Glucose 0 mg/dL Last Edit by Iqra Jones A on 07/03/25 16:05 Results Reviewed Results Reviewed: Laboratory Last Values Urine pH (Auto) 6.0 07/03/25 16:03 Specific [place] (Auto) 1.010 07/03/25 16:03 Urine Protein (Auto) 0 mg/dL 07/03/25 16:03 Glucose (UA)(Auto) 0 mg/dL 07/03/25 16:03 Urine Ketones (Auto) Negative 07/03/25 16:03 Urine Blood (Auto) 1 Griffin/uL L* 07/03/25 16:03 Urine Nitrite (Auto) Negative 07/03/25 16:03 Urine Bilirubin (Auto) 0 mg/dL 07/03/25 16:03 Urine Urobilinogen (Auto) 0 mg/dL 07/03/25 16:03 Leukocyte Esterase (Auto) 1 Rebecca/uL 07/03/25 16:03 Coding Level of Care Code Est Pt Level 4 (02353) Diagnoses Urinary retention R33.9 Drug-induced constipation K59.03 Constipation type: drug induced constipation RBBB (right bundle branch block with left anterior fascicular block) I45.2 Status post right foot surgery Z98.890 Additional Codes PHQ-9 - 61701 - PHQ-9 Billing: Yes ([id number]) Assessment & Plan Assessment & Plan (1) Urinary retention: Code(s): R33.9 - Retention of urine, unspecified Category: Medical Plan: The patient experienced urinary retention requiring catheterization during her hospital stay. She continues to experience pain post-catheter removal and is concerned about a possible infection. The patient has been diagnosed with high calcium levels in her urine, which may impact kidney function. Dietary modifications and further evaluation by a tile fitter are recommended. She will follow up with the Urology about repeat ultrasound of bladder. (2) Constipation: Code(s): K59.00 - Constipation, unspecified Category: Medical Qualifiers: Constipation type: drug induced constipation Qualified Code(s): K59.03 - Drug induced constipation Plan: Advised on increasing fluid intake in using Colace more regularly to help reduce constipation. (3) RBBB (right bundle branch block with left anterior fascicular block): Code(s): I45.2 - Bifascicular block Category: Medical Plan: Followed by Cardiology in [place]. She does report getting cardiac workup though no documents of this. Will try to reach out to her multimedia artist office in [place] to get records. (4) Status post right foot surgery: Code(s): Z98.890 - Other specified postprocedural states Category: Surgical Plan: Patient continues to have chronic pain in her foot due to a previous foot surgery. She uses oxycodone 5 mg on a very limited p.r.n. basis for pain scales of 9-10. She usually gets 4 tablets of oxycodone for 1 month. . She does understand the habit-forming nature of this medication increase to use it on a as needed basis Orders: Orders AMB Urinalysis Automated 07/03/25 R30.0 - Dysuria, R33.9 - Retention of urine, unspecified UA CC w/rflx Micro + Cult 07/03/25 R30.0 - Dysuria, R33.9 - Retention of urine, unspecified Referrals Urology Referral R33.9 - Retention of urine, unspecified Nephrology Referral E83.52 - Hypercalcemia GEOSCIENCE TECHNICIAN Referral Z12.4 - Encounter for screening for malignant neoplasm of cervix Medications: New [Thermometer] As directed 1 ea 0RF R33.9 - Retention of urine, unspecified [Blood pressure cuff kit] As directed 1 ea 0RF I10 - Essential (primary) hypertension Refilled docusate sodium (Colace) 100 mg PO DAILY 30 caps 2RF constipation 30 days K59.03 - Drug induced constipation carisoprodol (Soma) 350 mg PO BEDTIME 5 tabs 0RF 5 days M54.12 - Radiculopathy, cervical region oxycodone Partial Fill upon patient request. 5 mg PO DAILY PRN 4 tabs 0RF pain 4 days S82.142D - Displaced bicondylar fracture of left tibia, subsequent encounter for closed fracture with routine healing lisinopril 10 mg PO DAILY 90 tabs 1RF I10 - Essential (primary) hypertension Discontinued gabapentin Discontinued Reason: Doctor's Order 300 mg PO TID 30 days 90 caps 3RF M99.01 - Segmental and somatic dysfunction of cervical region
[2025-07-03 14:42] VITALS: BP 112/78; PULSE 72; TEMP 36.2; O2SAT 98; BMI 30.3
--- OUTSIDE RECORDS SUMMARY | 2025-07-03 18:16 | XMS_ITS | Encounter Summary ---
Author Organization [facility] Address [address] [place] [address] Phone Care Team Providers Care Medical Attendant Name Role Phone Jacque Lin NP Primary Care Provider [phone]- [phone] Lauri Simmons MD Primary Care Provid er Encounter Details Date Type Department Care Team (Latest Contact Info) Description 05/09/2019 Transcribe Orders [facility] [address], [address] [place] [address] Gali Edwards MD [address] [place] [address] [email or web address] Chest pain, unspecified type (Primary Dx); LBBB [...] block documented in this encounter Care Teams Medical Attendant Relationship Specialty Start Date End Date Jacque Lin NP [address] [place] [address] [address] [place] [address] PCP - General Family Medicine 11/17/18 10/15/21 Lauri Simmons MD [address] [place] [address] [place] [address] PCP - General Internal Medicine 10/16/21 documented as of this encounter Additional Source Comments The information contained in this document represents components of the legal health record. It is not the complete legal health record.[facility]
--- OUTSIDE RECORDS SUMMARY | 2025-07-03 18:16 | XMS_ITS | Encounter Summary ---
Author Organization [facility] Address [address] [place] [address] Phone Care Team Providers Care Cutting And Splicing Supervisor Name Role Phone Lauri Simmons MD Primary Care Provid er Encounter Details Date Type Department Care Team (Late st Contact Info) Description 10/29/2023 Procedure Pass [facility] - MRI [address] 6th [place] [address] Social History Tobacco Use Types Packs/Day Years Used Date Smoking Tobacco: Some Days Smokeless Tobacco: Never Alcohol Use Standard Drinks/Week Comments Yes 0 (1 standard drink = 0.6 oz pur e alcohol) occasional Education Answer Date Recorded Are you interested in more education? Not on sheyla e 02/12/2023 Are you concerned about learning? Not on file 02/12/2023 No 02/12/2023 No 02/12/2023 Digital Access Answer Date Recorded No 03/13/2023 No 03/13/2023 Reliable internet access at home? Not on file 03/13/2023 Device with a working camera? Not on file Comments Unknown Sex and Gender Information Value Date Recorded Sex Assigned at Female 11/17/2018 9:08 PM EST Legal Sex Female 7:43 PM EST Gender Identity Female 11/17/2018 9:08 PM EST Sexual Orientation Straight 11/17/2018 9: 08 PM EST documented as of this encounter Plan of Treatment Not on file documented as of this encounter Visit Diagnoses Not on filedocumented in this encounter Care Teams Cutting And Splicing Supervisor Relationship Specialty Start Date End Date Lauri Simmons MD [address] [place] [id number] PCP - General Internal Medicine 10/16/21 documented as of this encounter Additional Source Comments The information contained in this document represents components of the legal health record. It is not the complete legal health record.[facility]
--- OUTSIDE RECORDS SUMMARY | 2025-07-03 18:16 | XMS_ITS | Encounter Summary ---
Author Organization [facility] Address [address] [place] [address] Phone Care Team Providers Care Audiology Technician Name Role Phone Lauri Simmons MD Primary Care Provid er Encounter Details Date Type Department Care Team (Late st Contact Info) Description 12/07/2023 Telephone [facility] [place] Department of Orthopaedic Surgery, Foot & Ankle Service [address], [address], [address] [place] [address] Pina Barahona MD [address] [place] [address] [email or web address] Social History Tobacco Use Types Packs/Day Years [...] on filedocumented in this encounter Care Teams Audiology Technician Relationship Specialty Start Date End Date Lauri Simmons MD [address] [place] [id number] PCP - General Internal Medicine 10/16/21 documented as of this encounter Additional Source Comments The information contained in this document represents components of the legal health record. It is not the complete legal health record.[facility]
--- OUTSIDE RECORDS SUMMARY | 2025-07-03 18:16 | XMS_ITS | Clinical Summary ---
Author Organization [facility] Address [address] [place] [address] Phone Care Team Providers Care Vp Medical Name Role Phone Lauri Simmons MD Primary Care Provid er Allergies Active Allergy Reactions Criticality Noted Date Comments Erythromycin Rash Low 11/17/2018 Medications LISINOPRIL ORAL Take 10 mg by mouth. Active gabapentin (NEURONTIN) 400 MG capsule Take 400 mg by mouth 3 (three) times a day. Active methotrexate sodium (METHOTREXATE, ANTI-RHEUMATIC, ORAL) Take by mouth. Active acetaminophen (TYLENOL) 325 mg tablet Take 2 tablets (650 mg total) by mouth every 6 (six) hours as needed. 40 tablet 11/17/2018 Active oxyCODONE 5 MG immediate release tablet TAKE 1 TABLET ORALLY EVERY 12 HOURS FOR PAIN FOR 7 DAYS 10/20/2023 Active ascorbic acid, vitamin C, (VITAMIN C) 500 MG tablet TAKE 1 TABLET BY MOUTH EVERY DAY FOR 90 DAY 10/15/2023 Active LORazepam (ATIVAN) 0.5 MG tablet TAKE 1 TABLET BY MOUTH EVERY DAY FOR 20 DAYS 09/15/2023 Active methocarbamoL (ROBAXIN) 750 MG tablet Take 750 mg by mouth nightly at bedtime. 10/12/2023 Active Social History Tobacco Use Types Packs/Day Years Used Date Smoking Tobacco: Some Days Smokeless Tobacco: Never Tobacco Cessation:Ready to Q uit: Not Asked; Counseling Given: Not Answered Alcohol Use Standard Drinks/Week Comments Yes 1 (1 standard drink = 0.6 oz pur [...] Orientation Straight 11/17/2018 9: 08 PM EST Last Filed Vital Signs Vital Sign Reading Time Taken Comments Blood Pressure 137/86 12/14/2023 10:55 AM EST Pulse 67 12/14/2023 10:55 AM EST Temperature 36.5 C (97.7 F) 05/03/2019 1:42 AM EDT Respiratory Rate 17 05/03/2019 1:42 AM EDT Oxygen Saturation 100% 05/03/2019 1:42 AM EDT Inhaled Oxygen Concentration - - Weight 65.8 kg (145 lb) 10/29/2023 2:10 PM EST Height 154.9 cm (5' 1 ) 10/29/2023 2:10 PM EST Body Mass Index 27.4 10/29/2023 2:10 PM EST Plan of Treatment Health Maintenance Due Date Last Done Comments LIPID PANEL 1960 DEPRESSION SCREENING 1972 SMOKING Hx and SMOKELESS TOBACCO SCREENING 1973 HEPATITIS C SCREENING 1978 HIV ONE-TIME SCREENING (18-65 YEARS) 1978 MAMMOGRAM 2000 COLOGUARD 2005 COLONOSCOPY 2005 COLORECTAL CANCER SCREENING 2005 FIT TEST 2005 FOBT 2005 SIGMOIDOSCOPY 2005 VIRTUAL COLONOSCOPY 2005 RSV VACCINE (1 - Risk 60-74 years 1-dose series) 2020 CREATININE LEVEL 05/03/2020 05/03/2019 POTASSIUM LEVEL 05/03/2020 05/03/2019 PNEUMOCOCCAL VACCINES (50+ years) (2 of 2 - PCV) 05/01/2021 05/01/2020 SCREENING FOR DIABETES 05/03/2022 05/03/2019 OSTEOPOROSIS SCREENING INITIAL (ONE-TIME) 2025 INFLUENZA VACCINE (#1) 2025 2, 06/22/2020, 08/06/2016 COVID-19 VACCINE ( - season) 2025 10/14/2021, 12/20/2020, 11/22/2020 Adult Td,Tdap Booster 08/14/2028 08/14/2018 ZOSTER VACCINES Completed 07/22/2022, 10/18, 02/06/2021, Additional history exists HEPATITIS A VACCINES Aged Out No long er eligible based on patient's age to complete this topic HIB VACCINES Aged Out No longer eligi ble based on patient's age to complete this topic MENINGOCOCCAL VACCINES (ACWY) Aged Out No longer eligible based on patient's age to complete this topic MENINGOCOCCAL VACCINES (B) Aged Out N o longer eligible based on patient's age to complete this topic Medical Devices Not on file Procedures Procedure Name Priority Date/Time Associated Diagnosis Comments BASIC METABOLIC PANEL STAT 05/03/2019 2:30 AM EDT from Last 3 Months or Most Recently Relevant to Health Maintenance Results * Basic metabolic panel (05/03/2019 2:30 AM EDT) SODIUM 141 133 - 146 mmol/L [facility] CHLORIDE 100 96 - 108 mmol/L [facility] POTASSIUM 4.0 3.3 - 5.1 mmol/L [facility] CO2 25 21 - 35 mmol/L [facility] BUN 17 6 - 19 mg/dL [facility] CREATININE 0.60 0.5 - 1.5 mg/dL [facility] GLUCOSE 86 70 - 99 mg/dL [facility] CALCIUM 9.6 8.4 - 10.3 mg/dL [facility] EGFR 100 >59 mL/min/1.7 3m2 [facility] Comment:If patient is black, multiply result by 1.159. Estimated glomerular filtration rate calculated using the CKD-EPI equation. ANION GAP 20 10 - 20 mmol/L [facility] Blood 05/03/2019 2:30 AM EDT 05/03/2019 2:37 AM EDT us Mickey Crooks DO LAB BLOOD ORDERABLES Final Re sult [facility] [address] [place] [address] from Last 3 Months or Most Recently Relevant to Health Maintenance Insurance [id number] [employer] [address] [place] [id number] [place] [address] [employer] [employer] [address] [place] [address] [place] [address] [address] [place] [address] [address] [place] [address] [employer] Care Teams Vp Medical Relationship Specialty Start Date End Date Lauri Simmons MD [address] [place] [id number] PCP - General Internal Medicine 10/16/21 Additional Source Comments The information contained in this document represents components of the legal health record. It is not the complete legal health record.[facility]
== END 2025-07-03 16:50 | disposition home or self-care (01) ==
LOC: HO.HMCH 14:34
PROVIDERS: PCP Physician Assistant; Visit Provider Physician Assistant
DX: R33.9 Retention of urine, unspecified (principal); K59.03 Drug induced constipation; I45.2 Bifascicular block; Z98.890 Other specified postprocedural states

== ENCOUNTER → 2025-07-03 14:33 | Outpatient (BNVA) | payer MEDICARE, MEDICAID, SELFPAY | PROVIDERS: PCP Physician Assistant; Visit Provider Physician Assistant | DX: I10 Essential (primary) hypertension (principal); R33.9 Retention of urine, unspecified; K59.03 Drug induced constipation; I45.2 Bifascicular block; R30.0 Dysuria; E83.52 Hypercalcemia; M54.12 Radiculopathy, cervical region; Z98.890 Other specified postprocedural states; M99.01 Segmental and somatic dysfunction of cervical region; S82.142D Displaced bicondylar fracture of left tibia, subsequent encounter for closed fracture with routine healing; X58.XXXD Exposure to other specified factors, subsequent encounter | CPT/HCPCS: 81003; 96127; 99212 ==